=== PATIENT | female | born 1970 | race Caucasian/White ===

== ENCOUNTER → 2016-12-15 | Outpatient (REF) | payer OTHER ==
[~2016-12-15] MED LIST: ACCU5TAB7; ALLE25CA OR; ASPI325T OR; BABY81CH; EXCETAB OR; FIORICET OR; IBUP400T OR; IBUP600T OR; METO10TA2 OR; No Historical Meds; TOPI50TA OR
== END ==
LOC: M LAB REF 13:10
PROVIDERS: ATTEND Internal Medicine
DX: T76.21XA Adult sexual abuse, suspected, initial encounter (principal)

== ENCOUNTER → 2017-05-22 | Outpatient (REF) | payer OTHER | LOC: M LAB REF 12:10 | PROVIDERS: ATTEND Nurse Practitioner Family | DX: Z02.89 Encounter for other administrative examinations (principal) ==

== ENCOUNTER 2017-10-07 20:33 | Emergency (ER) | payer OTHER ==
[~2017-10-07] VITALS: Ht 157.5 cm; Wt 97.2 kg
[2017-10-07] MEDS ORDERED: fentaNYL 100 MCG/2 ML INJECTION (J3010) IV ONE (21:00)
[2017-10-07] MEDS ORDERED: PROMETHAZINE INJ 25 MG/ML VIAL (J2550) IV ONE (21:00)
[2017-10-07] MEDS ORDERED: NS 500 ML IV ONE (21:00)
--- NOTE | 2017-10-07 21:10 | REPUSA ---
CT of the head Clinical history: Headache. Comparison: 10/08/2015. Technique: Multiple axial CT images were obtained through the head without administration of contrast . Findings: The ventricles and sulci are symmetric bilaterally. Encephalomalacia of the left occipital lobe is stable. There is no evidence of acute hemorrhage or infarct. There is no midline shift, mass effect, or extra-axial fluid collection. The osseous structures are unremarkable. The visualized para nasal sinuses and mastoid air cells are clear. Impression: Negative study. No evidence of acute hemorrhage or infarct. Encephalomalacia of the left occipital lobe is unchanged.
[2017-10-07] MEDS ORDERED: VALS1TAB49 PO (21:17)
[2017-10-07] MEDS ORDERED: HYDR12.55 PO (21:17)
[2017-10-07] MEDS ORDERED: ZYRT10CA PO (21:17)
[2017-10-07] MEDS ORDERED: KETOROLAC 30 MG/ML VIAL (J1885) IV ONE (21:30)
[2017-10-07 21:42] LABS: BASO % 0.3 % (0.0-1.0); EOS # 0.1 10^3/uL (0.0-0.50); IMMATURE GRANULOCYTE % 0.3 % (0-0); LYMPH # 0.7 10^3/uL (1.5-4.5); LYMPH % 12.5 % (24.0-44.0); MEAN CORPUSCULAR HEMOGLOBIN 30.1 pg (27.0-33.0); MEAN CORPUSCULAR HGB CONC 32.3 g/dl (32.0-36.5); MEAN CORPUSCULAR VOLUME 93.2 fl (80.0-96.0); MONO # 0.4 10^3/uL (0.0-0.8); MONO % 6.4 % (0.0-5.0); NEUTROPHILS # 4.6 10^3/uL (1.8-7.7); NEUTROPHILS % 78.5 % (36.0-66.0); PLATELET COUNT, AUTOMATED 209 10^3/uL (150-450); RED CELL DISTRIBUTION WIDTH 13.6 % (11.5-14.5); WHITE BLOOD COUNT 5.9 10^3/uL (4.0-10.0)
[2017-10-07 22:06] LABS: ANION GAP 8 MEQ/L (8-16); BLOOD UREA NITROGEN 13 MG/DL (7-18); CALCIUM LEVEL 7.8 MG/DL (8.5-10.1); CARBON DIOXIDE LEVEL 26 MEQ/L (21-32); CHLORIDE LEVEL 111 MEQ/L (98-107); CREATININE FOR GFR 0.78 MG/DL (0.55-1.02); GLOMERULAR FILTRATION RATE > 60.0 (>58); GLUCOSE, FASTING 105 MG/DL (70-105); POTASSIUM SERUM 3.9 MEQ/L (3.5-5.1); SODIUM LEVEL 145 MEQ/L (136-145)
[2017-10-07] MEDS ORDERED: FIORICET TAB PO ONE (22:15)
[2017-10-07] MEDS ORDERED: FIOR1CAP PO (22:45)
[2017-10-07] MEDS ORDERED: ZOFR4TAB3 PO (22:45)
[2017-10-07 23:08] VITALS: BP 148/75
== END 2017-10-07 23:14 | disposition home or self-care (01) ==
LOC: EDBD 20:33 → M ED 20:33
DX: G43.109 Migraine with aura, not intractable, without status migrainosus (principal); Z86.73 Personal history of transient ischemic attack (TIA), and cerebral infarction without residual deficits; F17.200 Nicotine dependence, unspecified, uncomplicated; Z79.82 Long term (current) use of aspirin; Z79.899 Other long term (current) drug therapy; Z88.0 Allergy status to penicillin; Z88.1 Allergy status to other antibiotic agents; Z88.7 Allergy status to serum and vaccine; Z88.5 Allergy status to narcotic agent; Z88.8 Allergy status to other drugs, medicaments and biological substances
CPT/HCPCS: 70450; 80048; 85025; 96361; 96374; 96375; 99284; J1885; J3010

== ENCOUNTER → 2017-10-11 | Outpatient (REF) | payer OTHER ==
[~2017-10-11] MED LIST changes: +FIOR1CAP PO; +HYDR12.55 PO; +VALS1TAB49 PO; +ZOFR4TAB3 PO; +ZYRT10CA PO
[2017-10-11 18:04] LABS: CHOLESTEROL LEVEL 160 MG/DL (<200); TRIGLYCERIDES LEVEL 75 MG/DL (<150)
== END ==
LOC: M LABNEURO 13:26
PROVIDERS: ATTEND Physician Assistant Medical
DX: I63.9 Cerebral infarction, unspecified (principal)

== ENCOUNTER → 2017-12-25 | Outpatient (REF) | payer OTHER | LOC: M LABNEURO 12:11 | DX: Z86.73 Personal history of transient ischemic attack (TIA), and cerebral infarction without residual deficits (principal) ==

== ENCOUNTER → 2018-01-01 | Outpatient (REF) | payer OTHER ==
[2018-01-01 14:29] LABS: VITAMIN B12 LEVEL 680 PG/ML (247-911)
[2018-01-01 14:31] LABS: TOTAL 25(OH) VITAMIN D 6.1 NG/ML (30.0-100.0)
[2018-01-04 14:18] LABS: VITAMIN B1 LEVEL WHOLE BLOOD 120.9 nmol/L (66.5-200.0); VITAMIN E LEVEL 9.7 mg/L (5.3-16.8)
== END ==
LOC: M LABNEURO 10:50
DX: R53.83 Other fatigue (principal); Z98.84 Bariatric surgery status

== ENCOUNTER → 2018-05-04 | Outpatient (REF) | payer OTHER ==
[2018-05-04 18:59] LABS: CA 125 10.6 U/ML (<30.2)
== END ==
LOC: M LAB REF 16:46
DX: N93.9 Abnormal uterine and vaginal bleeding, unspecified (principal)

== ENCOUNTER → 2019-05-04 | Outpatient (REF) | payer OTHER ==
[~2019-05-04] MED LIST changes: +ZOFR4TAB14 PO; -ZOFR4TAB3 PO
== END ==
LOC: M LAB REF 10:48
PROVIDERS: ATTEND Physician Assistant
DX: R30.0 Dysuria (principal)

== ENCOUNTER → 2019-05-14 | Outpatient (REF) | payer OTHER ==
[2019-05-14 14:27] LABS: PERCENT SATURATION 6.2 % (13.2-45.0)
== END ==
LOC: M LAB REF 13:17
PROVIDERS: ATTEND Internal Medicine
DX: D64.9 Anemia, unspecified (principal)

== ENCOUNTER → 2019-09-13 | Outpatient (CLI) | payer OTHER ==
[2019-09-13 11:41] LABS: ALBUMIN 3.5 GM/DL (3.2-5.2); ALT/SGPT 41 U/L (12-78); BILIRUBIN,TOTAL 0.5 MG/DL (0.2-1.0); BLOOD UREA NITROGEN 11 MG/DL (7-18); CALCIUM LEVEL 8.7 MG/DL (8.5-10.1); CARBON DIOXIDE LEVEL 31 MEQ/L (21-32); CHLORIDE LEVEL 105 MEQ/L (98-107); CREATININE FOR GFR 0.68 MG/DL (0.55-1.30); GLOMERULAR FILTRATION RATE > 60.0 (>51); GLUCOSE, FASTING 109 MG/DL (70-100); MAGNESIUM LEVEL 1.7 MG/DL (1.8-2.4); NT-PRO BNP 101 PG/ML (<125); POTASSIUM SERUM 3.6 MEQ/L (3.5-5.1); SODIUM LEVEL 142 MEQ/L (136-145); TOTAL PROTEIN 7.4 GM/DL (6.4-8.2)
== END ==
LOC: M LAB 10:50
PROVIDERS: ATTEND Internal Medicine Cardiovascular Disease
DX: I50.9 Heart failure, unspecified (principal)

== ENCOUNTER 2019-11-24 08:30 | Observation (INO) | payer OTHER ==
[~2019-11-24] VITALS: Ht 157.5 cm; Wt 107.8 kg
[2019-11-24] VITALS (10 sets, daily range): BP systolic 118–160; BP diastolic 60–90
[~2019-11-24 08:30] MED LIST changes: -VALS1TAB49 PO; +VALS40TA9 PO
[2019-11-24] MEDS ORDERED: DIGO0.259 PO (08:48)
[2019-11-24] MEDS ORDERED: TOPR50TA PO (08:48)
[2019-11-24] MEDS ORDERED: ENTR1TAB7 PO (08:48)
[2019-11-24] MEDS ORDERED: SPIR-10 PO (08:48)
[2019-11-24] MEDS ORDERED: ELIQ5TAB PO (08:48)
[2019-11-24] MEDS ORDERED: SIMV10TA21 PO (08:48)
[2019-11-24] MEDS ORDERED: MONT10TA4 PO (08:48)
[2019-11-24 08:50] LABS: BASO % 0.4 % (0.0-1.0); EOS # 0.1 10^3/uL (0.0-0.5); EOS % 2.5 % (0.0-3.0); HEMOGLOBIN 10.7 g/dl (12.0-15.5); LYMPH # 0.6 10^3/uL (1.5-5.0); LYMPH % 13.1 % (24.0-44.0); MEAN CORPUSCULAR HEMOGLOBIN 30.1 pg (27.0-33.0); MEAN CORPUSCULAR HGB CONC 31.5 g/dl (32.0-36.5); MEAN CORPUSCULAR VOLUME 95.5 fl (80.0-96.0); MONO # 0.4 10^3/uL (0.0-0.8); MONO % 7.5 % (0.0-5.0); NEUTROPHILS # 3.6 10^3/uL (1.5-8.5); NEUTROPHILS % 75.7 % (36.0-66.0); PLATELET COUNT, AUTOMATED 160 10^3/uL (150-450); RED BLOOD COUNT 3.56 10^6/uL (4.00-5.40); WHITE BLOOD COUNT 4.8 10^3/uL (4.0-10.0)
--- NOTE | 2019-11-24 08:57 | REP ---
CT of the brain without IV contrast: Comparisons are 10/07/2017 and 10/08/2015. There is no hemorrhage. There is no edema, mass effect or midline shift. There is an old left occipital lobe infarct, unchanged. The cortical stripe is otherwise unremarkable. The visualized paranasal sinuses and mastoid air cells are clear. Impression: There is no hemorrhage. There is an old left occipital lobe infarct, unchanged. Otherwise, negative CT study of the brain. Electronically Signed by Phoenix Luna MD 11/24/2019 08:49 A
[2019-11-24] MEDS: ASPIRIN 81 MG ENTERIC TAB PO SCH (09:00)
[2019-11-24 09:02] LABS: INR 1.01
[2019-11-24 09:04] LABS: PARTIAL THROMBOPLASTIN TIME 27.6 SECONDS (25.0-38.4)
--- NOTE | 2019-11-24 09:06 | REP ---
Portable chest, 08:48 a.m., single AP view with the the patient semi upright: Comparison is the PA and lateral chest of 03/11/2011. There is cardiomegaly, unchanged. Lung espinoza are clear. The valentine, mediastinum, and skeletal structures are. Impression: Chronic cardiomegaly. No acute cardiopulmonary findings. Electronically Signed by Phoenix Luna MD 11/24/2019 08:56 A
[2019-11-24 09:12] LABS: CK-MB VALUE MASS < 1.0 NG/ML (<3.6); CPK CREATINE PHOSPHOKINASE 30 U/L (26-192); MB/CK RELATIVE INDEX 3.33 (< OR =4); TROPONIN I < 0.02 NG/ML (< 0.10)
[2019-11-24] MEDS ORDERED: ACETAMINOPHEN 500 MG TAB PO ONE (09:30)
--- NOTE | 2019-11-24 10:45 | REP ---
Bilateral carotid artery duplex ultrasound: Comparison is 03/11/2011. Peak flow velocity analysis: RIGHT LEFT ICA Peak flow velocity cm/sec 142.3 94.7 ICA Diastolic flow velocity cm/sec 23.1 24.0 ICA/CCA Ratio 1.03 0.62 ECA Peak flow velocity cm/sec 111.9 94.7 CCA Peak flow velocity cm/sec 138.8 153.8 The there is a mild intimal thickening at the origins of the internal carotid arteries and external carotid arteries bilaterally. No other atheromatous plaque is identified. The The peak flow velocity in the right ICA is slightly elevated. However, there is no atheromatous plaque except for minimal intimal thickening. Therefore, this peak flow velocity is likely secondary to vessel tortuosity. The peak flow velocities are otherwise normal . There is antegrade flow in the vertebral arteries bilaterally. Impression: There is no stenosis on the right on the left. No change from the prior study. Electronically Signed by Phoenix Luna MD 11/24/2019 10:37 A
[2019-11-24] MEDS ORDERED: CETI10CA2 PO (11:34)
--- NOTE | 2019-11-24 12:52 | REPVR ---
PROCEDURE INFORMATION: Exam: MR Head Without Contrast Exam date and time: 11/24/2019 10:56 AM Age: 49 years old Clinical indication: Patient HX: Dizziness, HX cvax2; Additional info: Suspected CVA TECHNIQUE: Imaging protocol: MR of the head without contrast. COMPARISON: MRI-Brain without Contrast 10/19/2015 5:19 PM FINDINGS: Brain: No acute infarct identified on the diffusion-weighted imaging. No evidence of recent parenchymal hemorrhage. There are focal, chronic bilateral cerebellar infarcts, most new since prior. An old left occipital [employer] territory infarct. The T2 weighted imaging demonstrates a few punctate foci of increased signal intensity in the deep and subcortical white matter most likely representing chronic small vessel ischemic change which has mildly progressed since the prior study. A focal, chronic right frontal infarct has developed since the prior study which demonstrates hemosiderin staining on the gradient echo imaging. Ventricles: No significant ventriculomegaly. Ex vacuo enlargement of the occipital horn of the left lateral ventricle, as before. Bones/joints: Unremarkable. Soft tissues: Unremarkable. Sinuses: Normal as visualized. No acute sinusitis. Mastoid air cells: Normal as visualized. No mastoid effusion. Orbits: Unremarkable. IMPRESSION: No evidence of acute infarct. Electronically signed by: Yvonne Lutz On 11/24/2019 12:53:43 PM
--- NOTE | 2019-11-24 12:55 | REPVR ---
PROCEDURE INFORMATION: Exam: MR Angiogram Head Without Contrast, Arteries Exam date and time: 11/24/2019 10:56 AM Age: 49 years old Clinical indication: Dizziness and giddiness; Patient HX: Dizziness, HX cvax2; Additional info: Suspected CVA TECHNIQUE: Imaging protocol: MR angiogram head without contrast. Exam focused on the arteries. 3D rendering: MIP and/or 3D reconstructed images were created by the technologist. COMPARISON: MRI-Brain without Contrast 10/19/2015 5:19 PM FINDINGS: Right internal carotid artery: Unremarkable. Intracranial segment is patent with no significant stenosis. No aneurysm. Right anterior cerebral artery: Unremarkable. No occlusion or significant stenosis. No aneurysm. Right middle cerebral artery: Unremarkable. No occlusion or significant stenosis. No aneurysm. Right posterior cerebral artery: Unremarkable. No occlusion or significant stenosis. No aneurysm. Right vertebral artery: Unremarkable. No occlusion or significant stenosis. No aneurysm. Left internal carotid artery: Unremarkable. Intracranial segment is patent with no significant stenosis. No aneurysm. Left anterior cerebral artery: Unremarkable. No occlusion or significant stenosis. No aneurysm. Left middle cerebral artery: Unremarkable. No occlusion or significant stenosis. No aneurysm. Left posterior cerebral artery: Unremarkable. No occlusion or significant stenosis. No aneurysm. Left vertebral artery: Unremarkable. No occlusion or significant stenosis. No aneurysm. Basilar artery: Unremarkable. No occlusion or significant stenosis. No aneurysm. IMPRESSION: No major proximal vessel branch occlusion seen. Electronically signed by: Yvonne Lutz On 11/24/2019 12:56:59 PM
--- NOTE | 2019-11-24 13:13 | ECGEPIP ---
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
[2019-11-24] MEDS: SPIRONOLACTONE 25 MG TAB PO SCH (14:53)
[2019-11-24] MEDS: MECLIZINE 25 MG TABLET PO PRN ×2 (14:54→23:19)
[2019-11-24] MEDS: METOPROLOL SUCC (TopROL XL) 50MG **XL** TAB PO SCH (14:54)
--- NOTE | 2019-11-24 16:06 | HPEPDOC ---
General Date of Admission Nov 24, 2019 at 12:05 Date of Service: Nov 24, 2019 Chief Complaint The patient is a 49-year-old female who presented to the emergency room after experiencing severe dizziness History of Present Illness Patient is a 49-year-old female with a PMHx of A. fib (on Eliquis), Hx of CVA (2010, 2017 - not on anti-platelet therapy, with reported residual right upper quadrant and left lower quadrant bilateral hemianopsia), Diastolic CHF? and HTN who presented to the emergency room with complaints of dizziness. Patient reported that she woke up at 7 this morning and reported she couldnt get out of bed because of dizziness that she described as the room spinning. Patient reported that she expenses of nausea but denied any vomiting. Denied any loss of consciousness, chest pain, shortness of breath or palpitations. Denies any cough. . She did report mild headache. Patient denied any difficulty with swallowing or any slurred speech. Patient denies any abdominal pain, constipation, diarrhea, urinary discomfort or experiencing fevers or chills within the last 1 week. Home Medications Scheduled Apixaban (Eliquis) 5 Mg Tablet, 5 MG PO BID, (Reported) Cetirizine HCl (ZyrTEC) 10 Mg Capsule, 10 MG PO DAILY, (Reported) Digoxin (Digox) 250 Mcg Tablet, 250 MCG PO DAILY, (Reported) Metoprolol Succinate (Toprol Xl) 50 Mg Tab.er.24h, 50 MG PO DAILY, (Reported) Montelukast Sodium (Montelukast Sodium) 10 Mg Tablet, 10 MG PO DAILY, (Reported) Sacubitril/Valsartan (Entresto 49 mg-51 mg Tablet) 1 Each Tablet, 1 TAB PO BID, (Reported) Simvastatin (Simvastatin) 10 Mg Tablet, 10 MG PO QHS, (Reported) Spironolactone (Spironolactone) 25 Mg Tablet, 25 MG PO DAILY, (Reported) Allergies Coded Allergies: Quinolones (Verified Allergy, Unknown, 11/24/19) clindamycin (Verified Allergy, Unknown, 11/24/19) codeine (Verified Allergy, Unknown, 11/24/19) erythromycin base (Verified Allergy, Unknown, 11/24/19) gentamicin (Verified Allergy, Unknown, 11/24/19) sulfamethoxazole (Verified Allergy, Unknown, 11/24/19) trimethoprim (Verified Allergy, Unknown, 11/24/19) vancomycin (Verified Allergy, Unknown, 11/24/19) Past Medical History Medical History A. fib (on Eliquis), Hx of CVA (2010, 2017 - not on anti-platelet therapy, with reported residual right upper quadrant and left lower quadrant bilateral hemianopsia), Diastolic CHF?, HTN Surgical History Cardiac catheterization 09/2019; no stent placement; reported to have an ejection fraction of 60% at the time Congenital heart defect repair; Cor triatriatum Breast reduction surgery 2 Dilation and curettage Hernia repair Gastric bypass Core biopsy of cervix Family History - Mother is alive without any eye or medical history - Father is with a history of heart attack Social History - Denies the use of illicit drugs; patient quit smoking 1 year ago but was a smoker of 5 years at less than 0.5 PPD; social alcohol use - Denies recent travel or sick contacts - Lives with boyfriend - Occupation; patient works at [employer] Review of Systems Other systems 10 point review of systems complete, all negative otherwise stated in HPI Vital Signs - Vitals: BP 134/70, HR 89, RR 16, Sat 97%RA, Temp 97.9F - General: Lying in bed, Speaking in full sentences, AAOx3 - HEENT: NC, AT, PERRLA, EOMI - CVS:+S1S2 - Lungs: Fair air entry bilaterally, No appreciable wheezing / rales / rhonchi - Abdomen: Soft, Non-distended, Non-tender - Extremities: No lower extremity edema, No calf tenderness - Neuro: No focal motor or sensory deficit - Skin: No visible rashes Laboratory Data Labs 24H Laboratory Tests 2 11/24/19 08:38: Immature Granulocyte % (Auto) 0.8, Neutrophils (%) (Auto) 75.7H, Lymphocytes (%) (Auto) 13.1L, Monocytes (%) (Auto) 7.5H, Eosinophils (%) (Auto) 2.5, Basophils (%) (Auto) 0.4, Neutrophils # (Auto) 3.6, Lymphocytes # (Auto) 0.6L, Monocytes # (Auto) 0.4, Eosinophils # (Auto) 0.1, Basophils # (Auto) 0.0, Nucleated Red Blood Cells % (auto) 0.0, Prothrombin Time 13.0, Prothromb Time International Ratio 1.01, Activated Partial Thromboplast Time 27.6, Total Creatine Kinase 30, Creatine Kinase MB < 1.0, Creatine Kinase MB Relative Index 3.33, Troponin I < 0.02 11/24/19 08:40: POC Glucose (Misc Panel) 109H, POC Sodium (Misc Panel) 139, POC Potassium (Misc Panel) 4.4, POC Chloride (Misc Panel) 103, POC Total CO2 (Misc Panel) 26.0, POC Blood Urea Nitrogen (Misc Panel 12, POC Ionized Calcium (Misc Panel) 4.6, POC Creatinine (Misc Panel) 0.7, POC Hematocrit (Misc Panel) 32.0L CBC/BMP Laboratory Tests 11/24/19 08:38 Plan / VTE VTE Prophylaxis Ordered?: Yes Plan Plan Dizziness / Vertigo - less likely 2/2 TIA, less likley 2/2 CVA, possibly 2/2 BPPV, Menieres - Presented to the emergency room with complaints of dizziness - Hemodynamically stable and afebrile - Troponin x 1 set negative - EKG without any changes compared to prior - CT Head 2/2: There is no hemorrhage. There is an old left occipital lobe infarct, unchanged. Otherwise, negative CT study of the brain. - Duplex Carotid 2/2: There is no stenosis on the right on the left. No change from the prior study. - MRI Brain 22: No evidence of acute infarct. - MRA Brain 22: No major proximal vessel branch occlusion seen. - Will check ECHO - c/w Telemetry monitoring - c/w PT and OT - Will keep on observation status A. fib - Currenlty rate controlled - c/w Metoprolol and Digoxin - c/w full anticoagulation with Eliquis Hx of CVA (2010, 2017) - Currently not on anti-platelet therapy, - Reported residual right upper quadrant and left lower quadrant bilateral hemianopsia - Will start ASA 81 Diastolic CHF? - No evidence of exacerbation currently - Will repeat ECHO - c/w Spironolactone, Entresto and Metoprolol HTN - BP well controlled - c/w Spironolactone, Entresto and Metoprolol with holding parameters - CXR 2/2: Chronic cardiomegaly. No acute cardiopulmonary findings. DVT prophylaxis - c/w full anticoagulation with MAYITO Gonsalves MD Nov 24, 2019 16:06
[2019-11-24] MEDS: ENTRESTO 49-51MG TABLET (SACUBITRIL/VALSARTAN) PO SCH (17:01)
[2019-11-24] MEDS ORDERED: ENTRESTO 49-51MG TABLET (SACUBITRIL/VALSARTAN) PO ONE (17:15)
[2019-11-24] MEDS: SIMVASTATIN 10 MG TAB PO SCH (20:03)
[2019-11-24] MEDS: APIXABAN 5 MG TAB (ELIQUIS) PO SCH (20:03)
[2019-11-24] MEDS: ACETAMINOPHEN TAB 650MG DOSE (2X325MG) PO PRN (21:13)
[2019-11-25] VITALS: BP 142/80
[2019-11-25 04:00] VITALS: BP 124/72
[2019-11-25 08:00] VITALS: BP 143/90
[2019-11-25] MEDS: DIGOXIN 0.25 MG TAB PO SCH (09:17)
[2019-11-25] MEDS: SPIRONOLACTONE 25 MG TAB PO SCH (09:17)
[2019-11-25] MEDS: ASPIRIN 81 MG ENTERIC TAB PO SCH (09:17)
[2019-11-25] MEDS: ENTRESTO 49-51MG TABLET (SACUBITRIL/VALSARTAN) PO SCH ×2 (09:17→20:27)
[2019-11-25] MEDS: APIXABAN 5 MG TAB (ELIQUIS) PO SCH ×2 (09:17→20:27)
[2019-11-25] MEDS: MONTELUKAST 10 MG TAB PO SCH (09:17)
[2019-11-25] MEDS: METOPROLOL SUCC (TopROL XL) 50MG **XL** TAB PO SCH (09:18)
[2019-11-25 12:00] VITALS: BP 117/62
--- NOTE | 2019-11-25 15:37 | IPNPDOC ---
Text Note Date of Service The patient was seen on 11/25/19. NOTE Subjective: Patient is a 49-year-old female with a PMHx of A. fib (on Eliquis), Hx of CVA (2010, 2017 - not on anti-platelet therapy, with reported residual right upper quadrant and left lower quadrant bilateral hemianopsia), Diastolic CHF? and HTN who presented to the emergency room with complaints of dizziness. Patient was admitted to the hospitalist service for evaluation of vertigo. Patient was seen and examined at the bedside. Currently, patient reports that her vertigo has improved, however, not resolved completely. She denies any chest pain, shortness of breath, palpitations. Denies nausea, vomiting, abdominal pain or diarrhea. Objective: Vitals (See below) General: Lying in bed, no acute distress, comfortable, AAOx3 HEENT: NC, AT CVS: +S1S2 Lungs: Fair air entry b/l, -w/r/r Abdomen: Soft, ND, NT Extremities: - Edema, - Calf tenderness Assessment and plan: Dizziness / Vertigo - possibly 2/2 BPPV, Menieres; unlikely 2/2 2/2 TIA / CVA - Currently, patient reports that her vertigo has improving - Hemodynamically stable and afebrile - Troponin negative; EKG without any changes compared to prior - CT Head 2/2: There is no hemorrhage. There is an old left occipital lobe infarct, unchanged. Otherwise, negative CT study of the brain. - Duplex Carotid 2/2: There is no stenosis on the right on the left. No felder ge from the prior study. - MRI Brain 2/2: No evidence of acute infarct. - MRA Brain 2/2: No major proximal vessel branch occlusion seen. - ECHO pending - c/w Telemetry monitoring - c/w PT and OT; patient will likely require 1 additional session A. fib - Currently rate controlled - c/w Metoprolol and Digoxin - c/w full anticoagulation with Eliquis Hx of CVA (2010, 2017) - Currently not on anti-platelet therapy, - Reported residual right upper quadrant and left lower quadrant bilateral hemianopsia - c/w ASA 81 Diastolic CHF? - No evidence of exacerbation currently - CXR 2/2: Chronic cardiomegaly. No acute cardiopulmonary findings. - Will repeat ECHO - c/w Spironolactone, Entresto and Metoprolol HTN - BP well controlled - c/w Spironolactone, Entresto and Metoprolol with holding parameters DVT prophylaxis - c/w full anticoagulation with Eliquis Disposition: - Anticipated discharge within the next 24 hours VS,Fishbone, I+O VS, Fishbone, I+O Vital Signs Date Time Temp Pulse Resp B/P (MAP) Pulse Ox O2 Delivery O2 Flow Rate FiO2 11/25/19 12:00 96.2 74 18 117/62 (80) 98 Room Air I&O- Last 24 Hours up to 6 AM 11/25/19 06:00 Intake Total 660 ml Output Total 250 ml Balance 410 ml MAYITO LOUIE MD Nov 25, 2019 15:37
[2019-11-25 16:00] VITALS: BP 119/57
[2019-11-25] MEDS: ACETAMINOPHEN TAB 650MG DOSE (2X325MG) PO PRN (18:05)
[2019-11-25 20:00] VITALS: BP 160/87
[2019-11-25] MEDS: SIMVASTATIN 10 MG TAB PO SCH (20:27)
[2019-11-26] VITALS: BP 133/73
[2019-11-26 04:00] VITALS: BP 129/71
[2019-11-26 08:00] VITALS: BP 122/69
[2019-11-26] MEDS ORDERED: MECL-86 PO (08:59)
[2019-11-26] MEDS: SPIRONOLACTONE 25 MG TAB PO SCH (09:33)
[2019-11-26] MEDS: DIGOXIN 0.25 MG TAB PO SCH (09:33)
[2019-11-26] MEDS: APIXABAN 5 MG TAB (ELIQUIS) PO SCH (09:33)
[2019-11-26] MEDS: ENTRESTO 49-51MG TABLET (SACUBITRIL/VALSARTAN) PO SCH (09:33)
[2019-11-26] MEDS: MONTELUKAST 10 MG TAB PO SCH (09:33)
[2019-11-26] MEDS: ASPIRIN 81 MG ENTERIC TAB PO SCH (09:33)
[2019-11-26 09:34] VITALS: BP 122/69
[2019-11-26] MEDS: METOPROLOL SUCC (TopROL XL) 50MG **XL** TAB PO SCH (09:34)
[2019-11-26 12:00] VITALS: BP 157/89
--- NOTE | 2019-11-26 15:02 | DS.PDOC ---
Discharge Summary General Date of Admission Nov 24, 2019 at 12:05 Date of Discharge 11/26/2019 Discharge Summary PROCEDURES PERFORMED DURING STAY: [None]. ADMITTING DIAGNOSES / DISCHARGE DIAGNOSES: Dizziness / Vertigo - possibly 2/2 BPPV, unlikely 2/2 Menieres; unlikely 2/2 2/2 TIA / CVA A. fib Hx of CVA (2010, 2017) Diastolic CHF? HTN DVT prophylaxis COMPLICATIONS/CHIEF COMPLAINT: Dizziness / "Room spinning" HISTORY OF PRESENT ILLNESS: Patient is a 49-year-old female with a PMHx of A. fib (on Eliquis), Hx of CVA (2010, 2017 - not on anti-platelet therapy, with reported residual right upper quadrant and left lower quadrant bilateral hemianopsia), Diastolic CHF? and HTN who presented to the emergency room with complaints of dizziness. Patient was admitted to the hospitalist service for evaluation of vertigo. HOSPITAL COURSE: Dizziness / Vertigo - possibly 2/2 BPPV, unlikely 2/2 Menieres; unlikely 2/2 2/2 TIA / CVA - Patient has reported significant improvement of her dizziness; denies any hearing loss or change in the ringing of her ears - Hemodynamically stable and afebrile - Troponin negative; EKG without any changes compared to prior - CT Head 2/2: There is no hemorrhage. There is an old left occipital lobe infarct, unchanged. Otherwise, negative CT study of the brain. - Duplex Carotid 2/2: There is no stenosis on the right on the left. No change from the prior study. - MRI Brain 2/2: No evidence of acute infarct. - MRA Brain 22: No major proximal vessel branch occlusion seen. - c/w Telemetry monitoring - c/w physical therapy and will have outpatient physical therapy follow up for vestibular therapy A. fib - Currently rate controlled - c/w Metoprolol and Digoxin - c/w full anticoagulation with Eliquis Hx of CVA (2010, 2017) - Currently not on anti-platelet therapy, - Reported residual right upper quadrant and left lower quadrant bilateral hemianopsia - c/w ASA 81 Diastolic CHF? - No evidence of exacerbation currently - CXR 2/2: Chronic cardiomegaly. No acute cardiopulmonary findings. - Will have ECHO completed as an outpatient - c/w Spironolactone, Entresto and Metoprolol HTN - BP well controlled - c/w Spironolactone, Entresto and Metoprolol with holding parameters DVT prophylaxis - c/w full anticoagulation with Eliquis DISCHARGE MEDICATIONS: Please see below. ALLERGIES: Please see below. PHYSICAL EXAMINATION ON DISCHARGE: Vitals (See below) General: Lying in bed, no acute distress, comfortable, AAOx3 HEENT: NC, AT CVS: RRR, +S1S2 Lungs: Fair air entry b/l, appreciable wheezing, rhonchi or rales Abdomen: Soft, nondistended, nontender, obese Extremities: - Edema, - Calf tenderness LABORATORY DATA: Please see below. ACTIVITY: [As tolerated]. DISCHARGE PLAN: Follow-up with Dr. Sharon Valerio within 7 days She's been advised to remain compliant with treatment plan and medications She's been advised to return to the emergency room. She experiences any problems DISPOSITION: Home with services DISCHARGE CONDITION: [Stable]. TIME SPENT ON DISCHARGE: 35 minutes Vital Signs/I&Os Vital Signs Date Time Temp Pulse Resp B/P (MAP) Pulse Ox O2 Delivery O2 Flow Rate FiO2 11/26/19 12:00 97.8 76 20 157/89 (111) 98 Room Air I&O- Last 24 Hours up to 6 AM 11/26/19 06:00 Intake Total 500 ml Output Total 0 ml Balance 500 ml Discharge Medications Scheduled Apixaban (Eliquis) 5 Mg Tablet, 5 MG PO BID, (Reported) Cetirizine HCl (ZyrTEC) 10 Mg Capsule, 10 MG PO DAILY, (Reported) Digoxin (Digox) 250 Mcg Tablet, 250 MCG PO DAILY, (Reported) Metoprolol Succinate (Toprol Xl) 50 Mg Tab.er.24h, 50 MG PO DAILY, (Reported) Montelukast Sodium (Montelukast Sodium) 10 Mg Tablet, 10 MG PO DAILY, (Reported) Sacubitril/Valsartan (Entresto 49 mg-51 mg Tablet) 1 Each Tablet, 1 TAB PO BID, (Reported) Simvastatin (Simvastatin) 10 Mg Tablet, 10 MG PO QHS, (Reported) Spironolactone (Spironolactone) 25 Mg Tablet, 25 MG PO DAILY, (Reported) Scheduled PRN Meclizine HCl (Meclizine HCl) 25 Mg Tablet, 1 TAB PO TIDP PRN for dizziness Allergies Coded Allergies: Quinolones (Verified Allergy, Unknown, 2/2/20) clindamycin (Verified Allergy, Unknown, 11/24/19) codeine (Verified Allergy, Unknown, 11/24/19) erythromycin base (Verified Allergy, Unknown, 11/24/19) gentamicin (Verified Allergy, Unknown, 11/24/19) sulfamethoxazole (Verified Allergy, Unknown, 11/24/19) trimethoprim (Verified Allergy, Unknown, 11/24/19) vancomycin (Verified Allergy, Unknown, 11/24/19) MAYITO LOUIE MD Nov 26, 2019 15:02
== END 2019-11-26 14:58 | disposition home or self-care (01) ==
LOC: M ED 08:30 → EDBD 08:30 → INTOOBSV 12:05 → M ED INP 12:05 → ENRESERV 12:20 → M PCU 12:54
PROVIDERS: ADMIT Internal Medicine; ATTEND Internal Medicine
DX: R42 Dizziness and giddiness (principal); I48.91 Unspecified atrial fibrillation; Z86.73 Personal history of transient ischemic attack (TIA), and cerebral infarction without residual deficits; I11.9 Hypertensive heart disease without heart failure; Z79.01 Long term (current) use of anticoagulants; Z79.899 Other long term (current) drug therapy; Z88.5 Allergy status to narcotic agent; Z88.1 Allergy status to other antibiotic agents; Z88.2 Allergy status to sulfonamides; Z88.8 Allergy status to other drugs, medicaments and biological substances

== ENCOUNTER → 2019-12-03 | Outpatient (REF) | payer OTHER ==
[~2019-12-03] MED LIST changes: +CETI10CA2 PO; +DIGO0.259 PO; +ELIQ5TAB PO; +ENTR1TAB7 PO; +MECL-86 PO; +MONT10TA4 PO; +SIMV10TA21 PO; +SPIR-10 PO; +TOPR50TA PO
[2019-12-03 19:00] LABS: PERCENT SATURATION 11.5 % (13.2-45.0)
== END ==
LOC: M LAB REF 17:15
PROVIDERS: ATTEND Internal Medicine
DX: D51.9 Vitamin B12 deficiency anemia, unspecified (principal)

== ENCOUNTER 2020-02-11 10:08 | Inpatient (IN) | payer OTHER ==
[~2020-02-11] VITALS: Ht 154.9 cm; Wt 108.8 kg
[2020-02-11] MEDS ORDERED: NS 1,000 ML IV ONE (10:30)
[2020-02-11 11:03] LABS: BASO % 0.5 % (0.0-1.0); EOS # 0.1 10^3/uL (0.0-0.5); EOS % 3.1 % (0.0-3.0); HEMOGLOBIN 10.8 g/dl (12.0-15.5); LYMPH # 0.6 10^3/uL (1.5-5.0); LYMPH % 14.5 % (24.0-44.0); MEAN CORPUSCULAR HEMOGLOBIN 27.8 pg (27.0-33.0); MEAN CORPUSCULAR HGB CONC 31.8 g/dl (32.0-36.5); MEAN CORPUSCULAR VOLUME 87.6 fl (80.0-96.0); MONO # 0.4 10^3/uL (0.0-0.8); MONO % 10.1 % (0.0-5.0); NEUTROPHILS # 2.8 10^3/uL (1.5-8.5); NEUTROPHILS % 71.3 % (36.0-66.0); PLATELET COUNT, AUTOMATED 152 10^3/uL (150-450); RED BLOOD COUNT 3.88 10^6/uL (4.00-5.40); WHITE BLOOD COUNT 3.9 10^3/uL (4.0-10.0)
--- NOTE | 2020-02-11 11:09 | REP ---
CT BRAIN WITHOUT CONTRAST: CT brain performed without IV contrast and compared to a prior study of 11/24/2019. There is no midline shift or mass effect. There is an area of encephalomalacia in the left occipital lobe consistent with an old infarct, unchanged. There is no acute intracranial hemorrhage. There is no extra-axial fluid collection. Bone window examination is unremarkable. IMPRESSION: Old left occipital infarct again noted. No acute intracranial findings. No acute hemorrhage, midline shift or mass effect. Electronically Signed by Phoenix Lopez MD 02/11/2020 04:57 P
[2020-02-11 11:38] LABS: ALBUMIN 3.4 GM/DL (3.2-5.2); ALT/SGPT 30 U/L (12-78); BILIRUBIN,DIRECT 0.1 MG/DL (0.0-0.2); BILIRUBIN,TOTAL 0.6 MG/DL (0.2-1.0); BLOOD UREA NITROGEN 10 MG/DL (7-18); CALCIUM LEVEL 8.6 MG/DL (8.5-10.1); CARBON DIOXIDE LEVEL 25 MEQ/L (21-32); CHLORIDE LEVEL 107 MEQ/L (98-107); CK-MB VALUE MASS < 1.0 NG/ML (<3.6); CPK CREATINE PHOSPHOKINASE 55 U/L (26-192); CREATININE FOR GFR 0.59 MG/DL (0.55-1.30); GLOMERULAR FILTRATION RATE > 60.0 (>51); GLUCOSE, FASTING 103 MG/DL (70-100); MB/CK RELATIVE INDEX 1.82 (< OR =4); POTASSIUM SERUM 3.9 MEQ/L (3.5-5.1); SODIUM LEVEL 139 MEQ/L (136-145); TROPONIN I < 0.02 NG/ML (< 0.10)
[2020-02-11 11:54] LABS: INR 1.38; PROTHROMBIN TIME 16.7 SECONDS (11.8-14.0)
[2020-02-11] MEDS ORDERED: PATIENT COMMENT (12:02)
[2020-02-11] MEDS ORDERED: LORazepam 2 MG/ML VIAL (J2060) IV ONE (13:45)
--- NOTE | 2020-02-11 14:03 | HPEPDOC ---
General Date of Admission 02/11/20 Date of Service: Feb 11, 2020 Chief Complaint The patient is a 49-year-old female admitted with a reason for visit of L Sided Weakness. Source: Patient History of Present Illness 49 year old female with PMH of Congenital heart defect repair; Cor triatriatum, A. 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 She was at her usual state of health this morning when she woke up and went to work as usual then suddenly she felt onset of numbness on the face and then the arm and leg which were feeling heavy. She was having difficulty in walking and had to grab on the surfaces to make it to the couch. In the ED CT head was normal. She refused TPA. She wasadmitted for possible acute stroke / TIA Home Medications Scheduled Apixaban (Eliquis) 5 Mg Tablet, 5 MG PO BID, (Reported) Cetirizine HCl (ZyrTEC) 10 Mg Capsule, 10 MG PO DAILY, (Reported) Digoxin (Digox) 250 Mcg Tablet, 250 MCG PO DAILY, (Reported) Metoprolol Succinate (Toprol Xl) 50 Mg Tab.er.24h, 50 MG PO DAILY, (Reported) Montelukast Sodium (Montelukast Sodium) 10 Mg Tablet, 10 MG PO QHS, (Reported) Sacubitril/Valsartan (Entresto 49 mg-51 mg Tablet) 1 Each Tablet, 1 TAB PO BID, (Reported) Miscellaneous Medications [Patient Comment] , (Reported) PATIENT STATES TAKES DIFFERENT VITAMINS, S/O BRINGING THEM IN Allergies Coded Allergies: Quinolones (Verified Allergy, Unknown, 11/24/19) clindamycin (Verified Allergy, Unknown, 11/24/19) codeine (Verified Allergy, Unknown, 11/24/19) erythromycin base (Verified Allergy, Unknown, 11/24/19) gentamicin (Verified Allergy, Unknown, 11/24/19) sulfamethoxazole (Verified Allergy, Unknown, 11/24/19) trimethoprim (Verified Allergy, Unknown, 11/24/19) vancomycin (Verified Allergy, Unknown, 11/24/19) levofloxacin (Verified Adverse Reaction, Mild, itching, 02/11/20) Past Medical History Medical History Congenital heart defect repair; Cor triatriatum, A. 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 Surgical History Cardiac catheterization 09/2019; no stent placement; reported to have an ejection fraction of 60% at the time Congenital heart defect repair; Cor triatriatum Breast reduction surgery Gastric Bypass surgery Incarcerated incisional hernia surgery Cholecystectomy 2 Dilation and curettage Core biopsy of cervix Family History Significant Family History: Heart disease (father now ) Mother is alive without any medical history Social History * Smoker: former Smoker, quit greater than 1 year Denies the use of illicit drugs; patient quit smoking 1 year ago but was a smoker of 5 years at less than 0.5 PPD; social alcohol use Denies recent travel or sick contacts A-FIB/CHADSVASC A-FIB History Current/History of A-Fib/PAF?: Yes Current PO Anticoag Therapy: Yes Review of Systems Constitutional: Denies: Chills, Fever, Night Sweats Eyes: Denies: Pain, Vision change ENT: Denies: Head Aches, Ear Pain, Dysphagia Skin: Denies: Rash, Lesions, Breakdown Pulmonary: Denies: Dyspnea, Cough Cardiovascular: Denies: Chest Pain, Palpitations, Orthopnea, Paroxysmal Noc. Dyspnea, Lt Headedness Gastrointestinal: Denies: Nausea, Vomiting, Abdominal Pain, Diarrhea Genitourinary: Denies: Dysuria, Frequency, Incontinence, Retention Hematologic: Denies: Bruising, Bleeding Excessively Neurological: Reports: Weakness, Numbness, Incoordination Psych: Reports: Anxiety Physical Examination General Exam: Positive: Alert, Cooperative, No Acute Distress Eye Exam: Positive: Conjunctiva & lids normal; Negative: Sclera icteric ENT Exam: Positive: Atraumatic, Mucous membr. moist/pink, Pharynx Normal Neck Exam: Positive: Supple; Negative: JVD, thyromegaly Chest Exam: Positive: Clear to auscultation, Normal air movement Heart Exam: Positive: Rate Normal, Regular Rhythm, Normal S1, Normal S2; Negative: Murmurs, Rubs Telemetry: Positive: No significant arrhythmia Abdomen Exam: Positive: Normal bowel sounds, Soft; Negative: Tenderness, Hepatospenomegaly Extremity Exam: Negative: Clubbing, Cyanosis, Edema Skin Exam: Positive: Nl turgor and temperature; Negative: Breakdown, Lesion Neuro Exam: Positive: Normal Speech, Normal Tone, Other (sensations diminished on the left side, facial deviation to the right, strength 4/5 on the left upper and lower ex. ) Psych Exam: Positive: Anxiety, Memory Intact, Oriented x 3 Vital Signs Vital Signs Date Time Temp Pulse Resp B/P (MAP) Pulse Ox O2 Delivery O2 Flow Rate FiO2 02/11/20 12:05 70 156/74 (101) 99 02/11/20 10:24 97.3 18 Room Air Laboratory Data Labs 24H Laboratory Tests 2 02/11/20 10:51: Immature Granulocyte % (Auto) 0.5, Neutrophils (%) (Auto) 71.3H, Lymphocytes (%) (Auto) 14.5L, Monocytes (%) (Auto) 10.1H, Eosinophils (%) (Auto) 3.1H, Basophils (%) (Auto) 0.5, Neutrophils # (Auto) 2.8, Lymphocytes # (Auto) 0.6L, Monocytes # (Auto) 0.4, Eosinophils # (Auto) 0.1, Basophils # (Auto) 0.0, Nucleated Red Blood Cells % (auto) 0.0, Anion Gap 7L, Glomerular Filtration Rate > 60.0, Calcium Level 8.6, Total Bilirubin 0.6, Direct Bilirubin 0.1, Aspartate Amino Transf (AST/SGOT) 25, Alanine Aminotransferase (ALT/SGPT) 30, Alkaline Phosphatase 65, Total Creatine Kinase 55, Creatine Kinase MB < 1.0, Creatine Kinase MB Relative Index 1.82, Troponin I < 0.02, Total Protein 7.0, Albumin 3.4, Albumin/Globulin Ratio 0.94L 02/11/20 11:33: Prothrombin Time 16.7H, Prothromb Time International Ratio 1.38 CBC/BMP Laboratory Tests 02/11/20 10:51 Assessment/Plan 49 year old female with PMH of Congenital heart defect repair; Cor triatriatum, A. 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 CT heard in the ED was negative. She Had a NIHSS score of 5 without counting the gaze and visual as she has chronic deficits there. She was offered TPA but she refused. SHe was admitted for possible Stroke/TIA. Acute ischemic stroke/TIA h/o recurrent strokes in the past. thought to be embolic in nature from the heart due to A fib. telemetry continue eliquis will add antiplatelets lipid profile. neurology consult PT/OT Paroxysmal A fib Now in sinus rhythm continue metoprolol and eliquis Diastolic CHF continue entresto will get new echo Hypertension controlled will continue home meds Morbid obesity with FLO diagnosed in 2019 h/o bypass surgery in the past untreated at present. H/o Repaired congenital heart disease. Plan / VTE VTE Prophylaxis Ordered?: Yes FARHAD RIBEIRO MD Feb 11, 2020 14:03
[2020-02-11 15:15] VITALS: BP 148/74
--- NOTE | 2020-02-11 15:33 | REP ---
MRA BRAIN: MRA brain is performed utilizing 3D [id number] imaging with MIP reconstruction images. COMPARISON: 11/24/2019 Intracranial carotid vessels are widely patent with no stenosis. Anterior communicating arteries are patent. There is a patient right posterior communicating artery. Anterior, middle, and posterior cerebral arteries are patent and symmetrical, however, there does appear to be focal mild to moderate narrowing of the T1 segment of the right posterior cerebral artery. I see no aneurysm or AVM. IMPRESSION: Mild to moderate focal narrowing of the P1 segment of the right posterior cerebral artery. No other evidence of significant intracranial arterial stenosis. Electronically Signed by Phoenix Lopez MD 02/11/2020 05:03 P
--- NOTE | 2020-02-11 15:39 | REP ---
REASON FOR EXAM: Stroke-like symptoms. Comparison examination is 11/24/2019. The cranial vertebral junction is unchanged and within normal limits. The ventricles and sulci are unchanged and again seen to be within normal limits. There is an old left posterior cerebral artery infarction. This is unchanged. There are no acute extra-axial fluid collections. There is no shift in the midline structures. Old cerebellar lacunar infarcts are noted status quo. In the right thalamic and hypothalamic regions, there are new foci of abnormal diffusion weighted hypersignal which are of corresponding near signal void on ADC mapping. This is also seen into the right cerebral peduncle. Note is again made of scattered deep white matter signal hyperintensities, particularly on the FLAIR images. The cerebellar pontine angles are again seen to be normal. The sella turcica, cavernous, and paracavernous structures are again seen to be within normal limits. The imaged paranasal sinuses and mastoid air cells remain clear. IMPRESSION: 1. Acute right thalamic and hypothalamic infarction extending into the right cerebral peduncle. 2. Old left ACIDIZER HELPER territory infarction status quo. 3. Deep white matter ischemic changes status quo. 4. Multiple tiny cerebellar lacunar infarcts status quo. 5. Other findings as described above. Electronically Signed by Lokesh Honeycutt DO 02/11/2020 04:53 P
[2020-02-11] MEDS ORDERED: ASPIRIN 325 MG TAB PO ONE (17:15)
[2020-02-11] MEDS: ACETAMINOPHEN TAB 650MG DOSE (2X325MG) PO PRN (17:29)
[2020-02-11] MEDS: ENTRESTO 49-51MG TABLET (SACUBITRIL/VALSARTAN) PO SCH (20:05)
[2020-02-11] MEDS: APIXABAN 5 MG TAB (ELIQUIS) PO SCH (20:12)
[2020-02-11] MEDS: MONTELUKAST 10 MG TAB PO SCH (20:12)
[2020-02-11] MEDS: diphenhydrAMINE 25MG CAP PO PRN (21:58)
[2020-02-11 22:00] VITALS: BP 140/69
--- NOTE | 2020-02-12 03:21 | ECGEPIP ---
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
[2020-02-12 06:00] VITALS: BP 131/70
[2020-02-12 07:07] LABS: CHOLESTEROL LEVEL 129 MG/DL (<200); CHOLESTEROL RISK RATIO 2.632 (<5); HDL CHOLESTEROL 49 MG/DL (>40); LDL CHOLESTEROL 62 MG/DL (<100); NON-HDL-C 80 MG/DL; TRIGLYCERIDES LEVEL 90 MG/DL (<150)
[2020-02-12 07:38] LABS: BLOOD UREA NITROGEN 11 MG/DL (7-18); CALCIUM LEVEL 8.5 MG/DL (8.5-10.1); CARBON DIOXIDE LEVEL 24 MEQ/L (21-32); CHLORIDE LEVEL 107 MEQ/L (98-107); CREATININE FOR GFR 0.76 MG/DL (0.55-1.30); GLOMERULAR FILTRATION RATE > 60.0 (>51); GLUCOSE, FASTING 125 MG/DL (70-100); POTASSIUM SERUM 3.6 MEQ/L (3.5-5.1); SODIUM LEVEL 139 MEQ/L (136-145)
[2020-02-12] MEDS: APIXABAN 5 MG TAB (ELIQUIS) PO SCH ×2 (08:18→20:23)
[2020-02-12] MEDS: ASPIRIN 81 MG ENTERIC TAB PO SCH (08:19)
[2020-02-12] MEDS: ATORVASTATIN 20 MG TAB PO SCH (08:19)
[2020-02-12] MEDS: ENTRESTO 49-51MG TABLET (SACUBITRIL/VALSARTAN) PO SCH ×2 (08:29→20:26)
[2020-02-12] MEDS: DIGOXIN 0.25 MG TAB PO SCH (08:29)
[2020-02-12] MEDS: METOPROLOL SUCC (TopROL XL) 50MG **XL** TAB PO SCH (08:29)
--- NOTE | 2020-02-12 09:15 | ECHO ---
DATE OF PROCEDURE: 02/11/2020 AGE: 49 GENDER: Female. HEIGHT: 61 inches WEIGHT: 249 pounds BODY SURFACE AREA: 2.07 meters squared Inpatient four pavilion room 4220 REFERRING PHYSICIAN: Dr. Maribell Powers. INDICATION: Cerebrovascular accident (CVA)/ abnormal EKG. MEASUREMENTS: 2D Measurements: RV - 3.2 cm LV - 5.4 cm Septum - 1.2 cm Posterior wall - 1.2 cm Aortic root - 3.3 cm LA - 4.8 cm LVEF - 55% Doppler Measurements: AV - 1.34 meters per second LVOT - 0.89 meters per second LVOT diameter - 1.8 cm MV - E - 96, A - 83, E/A ratio - 1.2 Early mitral deceleration time - 209 milliseconds E prime medial - 7.2 A prime medial - 7.8 E prime lateral - 8.28 Average, E/E prime ratio 12/PCWP - 16.8 mmHg PV - 1.0 meters per second Pulmonary artery acceleration time - 100 milliseconds RVSP - 37 mmHg IVC - 1.6 cm COMMENTS: Normal sinus rhythm without intraventricular conduction disturbance. Occasional isolated PVC. Somewhat challenging study in light of the patient's body habitus but diagnostically useful information was still obtained. M-mode and two-dimensional echocardiography was performed with pulsed, continuous wave, color flow and tissue Doppler studies. Mild concentric left ventricle hypertrophy with normal wall motion. Moderately dilated left atrium with grade 2 LV diastolic dysfunction and current estimated mean left atrial pressure upper limits of normal. Normal right ventricular size and motion with Doppler evidence of mild pulmonary hypertension. Mildly dilated right atrium but normal IVC size and collapse against an elevated central venous pressure at this time. Normal aortic dimensions. Marginal aortic valvular sclerosis without stenosis and very mild insufficiency. Subtle thickening of the mitral annulus but normal leaflet appearance and excursion with no posterior systolic buckling. Very mild mitral insufficiency (physiologic). Mild to moderate tricuspid insufficiency with normal appearing valvular structure. No apparent intracardiac mass. Minuscule posterior pericardial effusion. SALINE CONTRAST STUDY: Several injections were performed with good opacification of the right heart chambers and no evidence of contrast in the left ventricle despite Valsalva maneuver. Zaid Malhotra MD, [facility]
--- NOTE | 2020-02-12 09:50 | IPNPDOC ---
Subjective Date Seen The patient was seen on 02/12/20. Subjective Chief Complaint/HPI Continues to have severe numbness on maria l left side of the body and the face, left arm and leg is also weak, no difficulty in swallowing. no difficulty in speech. Objective Physical Examination General Exam: Positive: Alert, Cooperative, No Acute Distress Eye Exam: Positive: Conjunctiva & lids normal; Negative: Sclera icteric ENT Exam: Positive: Atraumatic, Mucous membr. moist/pink, Pharynx Normal Neck Exam: Positive: Supple; Negative: JVD, thyromegaly Chest Exam: Positive: Clear to auscultation, Normal air movement Heart Exam: Positive: Rate Normal, Regular Rhythm, Normal S1, Normal S2; Negative: Murmurs, Rubs Telemetry: Positive: No significant arrhythmia Abdomen Exam: Positive: Normal bowel sounds, Soft; Negative: Tenderness, Hepatospenomegaly Extremity Exam: Negative: Clubbing, Cyanosis, Edema Skin Exam: Positive: Nl turgor and temperature; Negative: Breakdown, Lesion Neuro Exam: Positive: Normal Speech, Normal Tone, Other (sensations diminished on the left side, facial deviation to the right, strength 4/5 on the left upper and lower ex. ) Psych Exam: Positive: Anxiety, Memory Intact, Oriented x 3 Assessment /Plan Assessment 49 year old female with PMH of Congenital heart defect repair; Cor triatriatum, A. 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 CT heard in the ED was negative. She Had a NIHSS score of 5 without counting the gaze and visual as she has chronic deficits there. Was 8 with the eye signs. She was offered TPA but she refused. SHe was admitted for possible Stroke/TIA. Acute ischemic stroke/TIA h/o recurrent strokes in the past. thought to be embolic in nature from the heart due to A fib. telemetry no events. continue eliquis continue ASA discussed with Neurology follow up as outpatient. PT/OT Paroxysmal A fib Now in sinus rhythm continue metoprolol and eliquis Diastolic CHF continue entresto will get new echo Hypertension controlled will allow for some permissive hypertension for 72 hours. will continue home meds with hold parameters. Morbid obesity with FLO diagnosed in 2019 h/o bypass surgery in the past untreated at present. H/o Repaired congenital heart disease. Plan/VTE VTE Prophylaxis Ordered?: Yes VS, I&O, 24H, Fishbone Vital Signs/I&O Vital Signs Date Time Temp Pulse Resp B/P (MAP) Pulse Ox O2 Delivery O2 Flow Rate FiO2 02/12/20 08:29 79 137/75 02/12/20 06:00 97.6 18 93 Room Air I&O- Last 24 Hours up to 6 AM 02/12/20 06:00 Intake Total 1355 ml Output Total 900 ml Balance 455 ml Laboratory Data 24H LABS Laboratory Tests 2 02/11/20 10:51: Immature Granulocyte % (Auto) 0.5, Neutrophils (%) (Auto) 71.3H, Lymphocytes (%) (Auto) 14.5L, Monocytes (%) (Auto) 10.1H, Eosinophils (%) (Auto) 3.1H, Basophils (%) (Auto) 0.5, Neutrophils # (Auto) 2.8, Lymphocytes # (Auto) 0.6L, Monocytes # (Auto) 0.4, Eosinophils # (Auto) 0.1, Basophils # (Auto) 0.0, Nucleated Red Blood Cells % (auto) 0.0, Anion Gap 7L, Glomerular Filtration Rate > 60.0, Calcium Level 8.6, Total Bilirubin 0.6, Direct Bilirubin 0.1, Aspartate Amino Transf (AST/SGOT) 25, Alanine Aminotransferase (ALT/SGPT) 30, Alkaline Phosphatase 65, Total Creatine Kinase 55, Creatine Kinase MB < 1.0, Creatine Kinase MB Relative Index 1.82, Troponin I < 0.02, Total Protein 7.0, Albumin 3.4, Albumin/Globulin Ratio 0.94L 02/11/20 11:33: Prothrombin Time 16.7H, Prothromb Time International Ratio 1.38 02/12/20 06:18: Anion Gap 8, Glomerular Filtration Rate > 60.0, Calcium Level 8.5, Triglycerides Level 90, Total Cholesterol 129, LDL Cholesterol 62, Non-HDL Cholesterol (LDL + VLDL) 80, Total HDL Cholesterol 49, Cholesterol/HDL Ratio 2.632 CBC/BMP Laboratory Tests 02/11/20 10:51 02/12/20 06:18 FARHAD RIBEIRO MD Feb 12, 2020 09:50
[2020-02-12 14:00] VITALS: BP 139/76
[2020-02-12] MEDS: diphenhydrAMINE 25MG CAP PO PRN ×2 (14:34→23:54)
[2020-02-12] MEDS: ACETAMINOPHEN TAB 650MG DOSE (2X325MG) PO PRN ×2 (14:34→23:54)
[2020-02-12] MEDS: MONTELUKAST 10 MG TAB PO SCH (20:23)
[2020-02-12] MEDS: GABAPENTIN 100 MG CAP PO SCH (20:23)
[2020-02-12 22:00] VITALS: BP 129/69
[2020-02-13 06:00] VITALS: BP 124/82
[2020-02-13 07:45] LABS: BASO % 0.2 % (0.0-1.0); EOS # 0.1 10^3/uL (0.0-0.5); EOS % 2.2 % (0.0-3.0); HEMATOCRIT 32.6 % (36.0-47.0); HEMOGLOBIN 10.1 g/dl (12.0-15.5); LYMPH # 0.7 10^3/uL (1.5-5.0); LYMPH % 15.9 % (24.0-44.0); MEAN CORPUSCULAR HEMOGLOBIN 27.4 pg (27.0-33.0); MEAN CORPUSCULAR VOLUME 88.6 fl (80.0-96.0); MONO # 0.5 10^3/uL (0.0-0.8); MONO % 9.9 % (0.0-5.0); NEUTROPHILS # 3.3 10^3/uL (1.5-8.5); NEUTROPHILS % 71.4 % (36.0-66.0); PLATELET COUNT, AUTOMATED 145 10^3/uL (150-450); RED BLOOD COUNT 3.68 10^6/uL (4.00-5.40); WHITE BLOOD COUNT 4.6 10^3/uL (4.0-10.0)
[2020-02-13 08:12] LABS: BLOOD UREA NITROGEN 12 MG/DL (7-18); CALCIUM LEVEL 8.6 MG/DL (8.5-10.1); CARBON DIOXIDE LEVEL 27 MEQ/L (21-32); CHLORIDE LEVEL 109 MEQ/L (98-107); CREATININE FOR GFR 0.63 MG/DL (0.55-1.30); GLOMERULAR FILTRATION RATE > 60.0 (>51); GLUCOSE, FASTING 96 MG/DL (70-100); POTASSIUM SERUM 3.9 MEQ/L (3.5-5.1); SODIUM LEVEL 141 MEQ/L (136-145)
[2020-02-13] MEDS: ENTRESTO 49-51MG TABLET (SACUBITRIL/VALSARTAN) PO SCH ×2 (09:00→21:00)
[2020-02-13] MEDS: DOCUSATE SODIUM 100 MG CAP PO SCH ×2 (09:32→21:00)
[2020-02-13] MEDS: diphenhydrAMINE 50MG/ML VIAL (J1200) IV PRN ×2 (09:32→23:19)
[2020-02-13] MEDS: ASPIRIN 81 MG ENTERIC TAB PO SCH (09:32)
[2020-02-13] MEDS: APIXABAN 5 MG TAB (ELIQUIS) PO SCH ×2 (09:32→21:18)
[2020-02-13] MEDS: GABAPENTIN 100 MG CAP PO SCH ×3 (09:33→21:18)
[2020-02-13] MEDS: ATORVASTATIN 20 MG TAB PO SCH (09:33)
[2020-02-13] MEDS: METOPROLOL SUCC (TopROL XL) 50MG **XL** TAB PO SCH (09:33)
[2020-02-13] MEDS: DIGOXIN 0.25 MG TAB PO SCH (09:33)
[2020-02-13] MEDS: ACETAMINOPHEN TAB 650MG DOSE (2X325MG) PO PRN (13:34)
[2020-02-13 14:00] VITALS: BP 120/78
--- NOTE | 2020-02-13 17:14 | IPNPDOC ---
Subjective Date Seen The patient was seen on 02/13/20. Subjective Chief Complaint/HPI complains of severe intermittent itching asking for benadryl. Says her vision is a little better and she can focus and see more. though she says her left sided weakness is worse specially in the leg. She also complains of pins and tinglingling on the left side of the body but says the gabapentin has helped. Objective Physical Examination General Exam: Positive: Alert, Cooperative, No Acute Distress Eye Exam: Positive: Conjunctiva & lids normal; Negative: Sclera icteric ENT Exam: Positive: Atraumatic, Mucous membr. moist/pink, Pharynx Normal Neck Exam: Positive: Supple; Negative: JVD, thyromegaly Chest Exam: Positive: Clear to auscultation, Normal air movement Heart Exam: Positive: Rate Normal, Regular Rhythm, Normal S1, Normal S2; Negative: Murmurs, Rubs Telemetry: Positive: No significant arrhythmia Abdomen Exam: Positive: Normal bowel sounds, Soft; Negative: Tenderness, Hepatospenomegaly Extremity Exam: Negative: Clubbing, Cyanosis, Edema Skin Exam: Positive: Nl turgor and temperature; Negative: Breakdown, Lesion Neuro Exam: Positive: Normal Speech, Normal Tone, Other (sensations diminished on the left side, facial deviation to the right, strength 3/5 on the left upper and lower ex. Babinski positive on the left.) Psych Exam: Positive: Anxiety, Memory Intact, Oriented x 3 Assessment /Plan Assessment 49 year old female with PMH of Congenital heart defect repair; Cor triatriatum, A. 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 CT heard in the ED was negative. She Had a NIHSS score of 5 without counting the gaze and visual as she has chronic deficits there. Was 8 with the eye signs. She was offered TPA but she refused. SHe was admitted for possible Stroke/TIA. MRi later in the day showed right sided acute cerebral infarction. Acute right sided ischemic stroke with left sided hemiparesis and left hemisensory loss MRI Shows: Acute right thalamic and hypothalamic infarction extending into the right cerebral peduncle. H/o recurrent strokes in the past with residual visual impairment with bilateral hemianopia. Thought to be embolic in nature from the heart due to A fib. telemetry no events. continue eliquis started ASA discussed with Neurology Dr Rachel follow up as outpatient. atorvastatin. PT/OT Will need to go to rehab Paroxysmal A fib Now in sinus rhythm continue metoprolol, digoxin and eliquis Diastolic CHF continue entresto with hold parameters to avoid too tight BP control at present. Echo: mild LVH, grade 2 diastolic dysfunction Hypertension with hypertensive heart disease controlled will allow for some permissive hypertension for 72 hours. will continue home meds with hold parameters. Morbid obesity with FLO diagnosed in 2018 h/o bypass surgery in the past untreated at present. H/o Repaired congenital heart disease. Plan/VTE VTE Prophylaxis Ordered?: Yes VS, I&O, 24H, Fishbone Vital Signs/I&O Vital Signs Date Time Temp Pulse Resp B/P (MAP) Pulse Ox O2 Delivery O2 Flow Rate FiO2 02/13/20 14:00 98.2 80 20 120/78 (92) 86 Room Air I&O- Last 24 Hours up to 6 AM 02/13/20 06:00 Intake Total 1460 ml Output Total 600 ml Balance 860 ml Laboratory Data 24H LABS Laboratory Tests 2 02/13/20 07:35: Immature Granulocyte % (Auto) 0.4, Neutrophils (%) (Auto) 71.4H, Lymphocytes (%) (Auto) 15.9L, Monocytes (%) (Auto) 9.9H, Eosinophils (%) (Auto) 2.2, Basophils (%) (Auto) 0.2, Neutrophils # (Auto) 3.3, Lymphocytes # (Auto) 0.7L, Monocytes # (Auto) 0.5, Eosinophils # (Auto) 0.1, Basophils # (Auto) 0.0, Nucleated Red Blood Cells % (auto) 0.0, Anion Gap 5L, Glomerular Filtration Rate > 60.0, Calcium Level 8.6 CBC/BMP Laboratory Tests 02/13/20 07:35 FARHAD RIBEIRO MD Feb 13, 2020 17:14
[2020-02-13] MEDS: MONTELUKAST 10 MG TAB PO SCH (21:18)
[2020-02-13 21:19] VITALS: BP 137/78
[2020-02-13 22:00] VITALS: BP 130/76
[2020-02-14 06:00] VITALS: BP 120/78
[2020-02-14] MEDS: ENTRESTO 49-51MG TABLET (SACUBITRIL/VALSARTAN) PO SCH (09:00)
[2020-02-14] MEDS: DOCUSATE SODIUM 100 MG CAP PO SCH (09:14)
[2020-02-14] MEDS: APIXABAN 5 MG TAB (ELIQUIS) PO SCH (09:14)
[2020-02-14] MEDS: GABAPENTIN 100 MG CAP PO SCH (09:14)
[2020-02-14] MEDS: ATORVASTATIN 20 MG TAB PO SCH (09:14)
[2020-02-14] MEDS: ASPIRIN 81 MG ENTERIC TAB PO SCH (09:14)
[2020-02-14 09:15] VITALS: BP 135/77
[2020-02-14] MEDS: METOPROLOL SUCC (TopROL XL) 50MG **XL** TAB PO SCH (09:15)
[2020-02-14] MEDS: DIGOXIN 0.25 MG TAB PO SCH (09:15)
[2020-02-14] MEDS ORDERED: ASPI81TAEC PO (10:09)
[2020-02-14] MEDS ORDERED: GABA-1171 PO (10:09)
[2020-02-14] MEDS ORDERED: ATOR1TAB21 PO (10:09)
--- NOTE | 2020-02-14 12:49 | DS.PDOC ---
Discharge Summary General Date of Admission Feb 11, 2020 at 13:24 Date of Discharge 02/14/20 Discharge Summary PROCEDURES PERFORMED DURING STAY: [None]. 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 SECONDARY DIAGNOSIS: Congenital heart defect repair; Cor Rosalie mancera. 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 COMPLICATIONS/CHIEF COMPLAINT: Suspected Cerebrovascular Accident. HISTORY OF PRESENT ILLNESS: See history and physical HOSPITAL COURSE: 49 year old female with PMH of Congenital heart defect repair; Cor calderon, A. 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 CT heard in the ED was negative. She Had a NIHSS score of 5 without counting the gaze and visual as she has chronic deficits there. Was 8 with the eye signs. She was offered TPA but she refused. SHe was admitted for possible Stroke/TIA. MRI later in the day showed right sided acute cerebral infarction. Acute right sided ischemic stroke with left sided hemiparesis and left hemisensory loss MRI Shows: Acute right thalamic and hypothalamic infarction extending into the right cerebral peduncle. H/o recurrent strokes in the past with residual visual impairment with bilateral hemianopia. Thought to be embolic in nature from the heart due to A fib. telemetry no events. continue eliquis started ASA discussed with Neurology Dr Rachel follow up as outpatient. atorvastatin. PT/OT Follow up with Neurology in 1 month after discharge. Paroxysmal A fib Now in sinus rhythm continue metoprolol, digoxin and eliquis Diastolic CHF continue entresto with hold parameters to avoid too tight BP control at present. Echo: mild LVH, grade 2 diastolic dysfunction Hypertension with hypertensive heart disease controlled continue home meds. Morbid obesity with FLO diagnosed in 2019 h/o bypass surgery in the past untreated at present. H/o Repaired congenital heart disease. DISCHARGE MEDICATIONS: Please see below. ALLERGIES: Please see below. PHYSICAL EXAMINATION ON DISCHARGE: VITAL SIGNS: Please see below. General Exam: Positive: Alert, Cooperative, No Acute Distress Eye Exam: Positive: Conjunctiva & lids normal; Horizontal Saccades movement seen. Bilateral hemianopia. Negative: Sclera icteric ENT Exam: Positive: Atraumatic, Mucous membr. moist/pink, Pharynx Normal Neck Exam: Positive: Supple; Negative: JVD, thyromegaly Chest Exam: Positive: Clear to auscultation, Normal air movement Heart Exam: Positive: Rate Normal, Regular Rhythm, Normal S1, Normal S2; Negative: Murmurs, Rubs Telemetry: Positive: No significant arrhythmia Abdomen Exam: Positive: Normal bowel sounds, Soft; Negative: Tenderness, Hepatosplenomegaly Extremity Exam: Negative: Clubbing, Cyanosis, Edema Skin Exam: Positive: Nl turgor and temperature; Negative: Breakdown, Lesion Neuro Exam: Positive: Normal Speech, Normal Tone, Other (sensations diminished on the left side, facial deviation to the right, strength 3/5 on the left upper and lower ex. Babinski positive on the left.) Psych Exam: Positive: Anxiety, Memory Intact, Oriented x 3 LABORATORY DATA: Please see below. ACTIVITY: [As tolerated]. DIET: as tolerated DISCHARGE PLAN: ARU DISPOSITION: . DISCHARGE INSTRUCTIONS: Follow up with Neurology in 1 month after discharge DISCHARGE CONDITION: [Stable]. TIME SPENT ON DISCHARGE: 35 minutes. Vital Signs/I&Os Vital Signs Date Time Temp Pulse Resp B/P (MAP) Pulse Ox O2 Delivery O2 Flow Rate FiO2 02/14/20 09:15 76 135/77 02/14/20 06:00 98.6 20 97 Room Air I&O- Last 24 Hours up to 6 AM 02/14/20 05:59 Intake Total 1720 ml Output Total 0 ml Balance 1720 ml Laboratory Data Labs 24H Laboratory Tests 2 02/14/20 06:12: Digoxin Level 0.6 Discharge Medications Scheduled Apixaban (Eliquis) 5 Mg Tablet, 5 MG PO BID, (Reported) Aspirin (Aspirin EC) 81 Mg Tablet.dr, 81 MG PO DAILY Atorvastatin Calcium (Atorvastatin Calcium) 20 Mg Tablet, 40 MG PO DAILY Cetirizine HCl (ZyrTEC) 10 Mg Capsule, 10 MG PO DAILY, (Reported) Digoxin (Digox) 250 Mcg Tablet, 250 MCG PO DAILY, (Reported) Gabapentin (Gabapentin) 100 Mg Capsule, 100 MG PO TID Metoprolol Succinate (Toprol Xl) 50 Mg Tab.er.24h, 50 MG PO DAILY, (Reported) Montelukast Sodium (Montelukast Sodium) 10 Mg Tablet, 10 MG PO QHS, (Reported) Sacubitril/Valsartan (Entresto 49 mg-51 mg Tablet) 1 Each Tablet, 1 TAB PO BID, (Reported) Miscellaneous Medications [Patient Comment] , (Reported) PATIENT STATES TAKES DIFFERENT VITAMINS, S/O BRINGING THEM IN Allergies Coded Allergies: Quinolones (Verified Allergy, Unknown, 11/24/19) clindamycin (Verified Allergy, Unknown, 11/24/19) codeine (Verified Allergy, Unknown, 11/24/19) erythromycin base (Verified Allergy, Unknown, 11/24/19) gentamicin (Verified Allergy, Unknown, 11/24/19) sulfamethoxazole (Verified Allergy, Unknown, 11/24/19) trimethoprim (Verified Allergy, Unknown, 11/24/19) vancomycin (Verified Allergy, Unknown, 11/24/19) levofloxacin (Verified Adverse Reaction, Mild, itching, 02/11/20) FARHAD RIBEIRO MD Feb 14, 2020 12:49
== END 2020-02-14 13:20 | DRG 65 ==
LOC: EDBD 10:08 → M ED 10:08 → M MSPAV 13:24 → ENRESERV 13:33
PROVIDERS: ADMIT Internal Medicine Nephrology; ATTEND Internal Medicine Nephrology
DX: I63.9 Cerebral infarction, unspecified (principal); I69.354 Hemiplegia and hemiparesis following cerebral infarction affecting left non-dominant side; I50.32 Chronic diastolic (congestive) heart failure; E66.2 Morbid (severe) obesity with alveolar hypoventilation; I48.91 Unspecified atrial fibrillation; Z79.01 Long term (current) use of anticoagulants; I11.0 Hypertensive heart disease with heart failure; G47.33 Obstructive sleep apnea (adult) (pediatric); H53.47 Heteronymous bilateral field defects; Z79.82 Long term (current) use of aspirin; Z79.899 Other long term (current) drug therapy; Z88.8 Allergy status to other drugs, medicaments and biological substances; Z88.5 Allergy status to narcotic agent; Z88.1 Allergy status to other antibiotic agents; Z87.891 Personal history of nicotine dependence

== ENCOUNTER 2020-02-14 10:12 | Inpatient (IN) | payer OTHER ==
[~2020-02-14] VITALS: Ht 154.9 cm; Wt 110.0 kg
[~2020-02-14 10:12] MED LIST changes: +ASPI81TAEC PO; +ATOR1TAB21 PO; +GABA-1171 PO; +PATIENT COMMENT
[2020-02-14 13:40] VITALS: BP 167/81
[2020-02-14] MEDS ORDERED: BISACODYL 10 MG SUPP PR PRN (14:15)
[2020-02-14] MEDS: PANTOPRAZOLE 40MG TAB (PROTONIX) PO SCH (16:09)
[2020-02-14] MEDS: FLUoxetine 20 MG CAP PO SCH (16:09)
[2020-02-14] MEDS: GABAPENTIN 100 MG CAP PO SCH ×2 (16:09→20:49)
--- NOTE | 2020-02-14 17:05 | HPEPDOC ---
L[facility] [employer] Note DATE OF ADMISSION: 02-14-20 DATE OF SERVICE: 02-14-20 TIME OF ADMISSION: Please refer to physician's admission order. SOURCE OF ADMISSION INFORMATION: [facility] record and patient CHIEF COMPLAINT: stroke HISTORY OF PRESENT ILLNESS: 49F pmh congenital heart defect s/p repair, afib, hx of cva with residual right sided hemianopsia 2010, chronic diastolic chf, htn, morbid obesity s/p gastric bypass, boyd presented to [facility] ED on 02-11-20 with new left sided weaknesses and found to have a new acute infarct with MRI showing, Acute right thalamic and hypothalamic infarction extending into the right cerebral peduncle Old left TONGUER territory infarctionMultiple tiny cerebellar lacunar infarct. She declined tpa, was started on aspirin and monitored on telemetry. Echo revealed grade 2 diastolic dysfunction. She reported new bilateral vision blurriness without new field cuts. She was evaluated by therapy and found to have new deficits in mobility and adls and deemed medically appropriate for admission to ARU on 02-14-2020. REVIEW OF SYSTEMS: The following is a completed review of systems and has been reviewed. Review of systems otherwise unremarkable. PAIN: Patient self reports no pain EYES: +bilateral blurred vision, chronic hemianopsia EARS, NOSE, & THROAT: No throat pain, or dysphagia, or rhinorrhea CARDIOVASCULAR: Denies chest pain or palpitations PULMONARY: Denies shortness of breath GASTROINTESTINAL: Denies constipation/diarrhea GENITOURINARY: denies dysuria MUSCULOSKELETAL: left sided weakness NEUROLOGICAL:left sided paresis with paresthesias HEMATOLOGICAL: denies easy bruising SKIN: no rash PSYCHIATRIC: Unremarkable All other review of systems found to be negative. PAST MEDICAL HISTORY: as per HPI PAST SURGICAL HISTORY: as per HPI ALLERGIES: Please see below. MEDICATIONS: Please see below. 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 GENERAL: Pleasant and cooperative. No acute distress. HEENT: PERRL. Extraocular movements intact. Clear conjunctiva. CARDIOVASCULAR: Regular rate and rhythm. No murmurs, rubs, or gallops LUNGS: Clear to auscultation bilaterally. No wheezes. No rhonchi ABDOMEN: Soft, nontender, nondistended. Positive bowel sounds. Normal active bowel sounds NEUROLOGICAL: Alert and oriented times three. Cranial nerves II through XII grossly intact. 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 5-/5 strength in left lower extremity. SKIN: blanchable erythema sacrum LABORATORY DATA: Please see below. IMAGING:Imaging documentation personally reviewed by record. FUNCTIONAL STATUS: Premorbid: Independent with all activities of daily life as well as mobility On Admission: Contact guard-total assist for mobility, total assist for dressing GOALS: Mod-I community distances with RW/cane, stairs, functional transfers, dressing, bathing, toileting, medical optimization ASSESSMENT:49-year-old F with past medical history of CVA who presents status post new stroke PLAN: 1. Rehab- PT/OT advance gait and ADL, strengthen/stretch/maintain ROM all 4 limbs, consider AFO for LLE, consider CIMT for LUE 2. Neuro- hx of stroke with residual right sided hemianopsia, now with right thalamic/hypothalamic infarct causing non-dominant paresis, mobiltiy and ADL impairments -c/u ASA, statin and good BP control for secondary stroke prevention -prozac for motor recovery 3. Cardiac: hx of cor triatrium s/p repair, Afib on Eliquis, c/u Digoxin, metoprolol- medicine consulted to assist in overall management -HTN- c/u sacubitril-valsartan home medication, on ASA -grade 2 diastolic dysfunction c/u fluid restriction, daily weight 4. resp: hx of BOYD, will start nocturnal 02 and refer to pulmonology for CPAP -Incentive spirometry, monitor for infection 5. Gi ppx: protonix 6. DVT ppx: on eliquis, teds 7. Pain: tylneol prn, gabapentin 100 TID 8. Dispo: TBD POST ADMISSION PHYSICIAN EVALUATION: Medical and functional status: Description of medical status, medical asse ssment: As above. Rehabilitation diagnosis and current and prior cold morbid medical conditions as above. Risk of complications and plans to mitigate them as above. Description of functional status current status is as above. Prior status as above. Status compared to preadmission: There are no clinically significant differences between the patient's current status and the information described on the preadmission screening document. Treatment plan anticipated: Treatment plan is as described above. Required disciplines including physical therapy, occupational therapy, others as noted above. Intensity of services: 3 hours a day, days a week. Special considerations: There are no specific special or safety considerations that would likely preclude immediate implementation of an intensive rehabilitation program or subsequently influence the plan of care. ATTESTATION: Considering all the information above, it is my best judgment that this patient requires intensive rehabilitation therapy as described above and an inpatient hospital environment due to the complexity of nursing, medical, and rehabilitation needs required by the patient. Furthermore, this patient can reasonably be expected to participate in an benefit from an inpatient rehabilitation stay with an interdisciplinary team approach to the delivery of rehabilitation care under the direction and supervision of rehabilitation physician. PROGNOSIS: Excellent ESTIMATED LENGTH OF STAY:12-14 days. PROJECTED DISCHARGE DESTINATION: Home with family support and any durable medical equipment required to increase functional safety and mobility. TIME SPENT COUNSELING AND COORDINATING INITIAL CARE: Greater than 70 minutes. Vital Signs Vital Sign - Last 24 Hours 02/14/20 13:40 Temp 99.9 Pulse 76 Resp 18 B/P (MAP) 167/81 (109) Pulse Ox 98 O2 Delivery Room Air Home Medications Scheduled Apixaban (Eliquis) 5 Mg Tablet, 5 MG PO BID, (Reported) Aspirin (Aspirin EC) 81 Mg Tablet.dr, 81 MG PO DAILY Atorvastatin Calcium (Atorvastatin Calcium) 20 Mg Tablet, 40 MG PO DAILY Cetirizine HCl (ZyrTEC) 10 Mg Capsule, 10 MG PO DAILY, (Reported) Digoxin (Digox) 250 Mcg Tablet, 250 MCG PO DAILY, (Reported) Gabapentin (Gabapentin) 100 Mg Capsule, 100 MG PO TID Metoprolol Succinate (Toprol Xl) 50 Mg Tab.er.24h, 50 MG PO DAILY, (Reported) Montelukast Sodium (Montelukast Sodium) 10 Mg Tablet, 10 MG PO QHS, (Reported) Sacubitril/Valsartan (Entresto 49 mg-51 mg Tablet) 1 Each Tablet, 1 TAB PO BID, (Reported) Allergies Coded Allergies: NUTS (Verified Allergy, Intermediate, Hives, 02/14/20) Olives (Verified Allergy, Intermediate, Hives, 02/14/20) Latex, Natural Rubber (Verified Allergy, Mild, Dermatitis, 02/14/20) Quinolones (Verified Allergy, Unknown, 11/24/19) clindamycin (Verified Allergy, Unknown, 11/24/19) codeine (Verified Allergy, Unknown, 11/24/19) erythromycin base (Verified Allergy, Unknown, 11/24/19) gentamicin (Verified Allergy, Unknown, 11/24/19) sulfamethoxazole (Verified Allergy, Unknown, 11/24/19) trimethoprim (Verified Allergy, Unknown, 11/24/19) vancomycin (Verified Allergy, Unknown, 11/24/19) levofloxacin (Verified Adverse Reaction, Mild, itching, 02/11/20) A-FIB/CHADSVASC A-FIB History Current/History of A-Fib/PAF?: Yes Current PO Anticoag Therapy: Yes JOELLEN CORODN MD Feb 14, 2020 17:05
[2020-02-14 20:00] VITALS: BP 139/65
[2020-02-14] MEDS: MONTELUKAST 10 MG TAB PO SCH (20:49)
[2020-02-14] MEDS: APIXABAN 5 MG TAB (ELIQUIS) PO SCH (20:49)
[2020-02-14] MEDS: ENTRESTO 49-51MG TABLET (SACUBITRIL/VALSARTAN) PO SCH (20:49)
[2020-02-14] MEDS: DOCUSATE SODIUM 100 MG CAP PO SCH (20:49)
[2020-02-14] MEDS: SENNA 8.6 MG TAB (SENOKOT) PO SCH (20:49)
[2020-02-15 06:00] VITALS: BP 130/72
[2020-02-15] MEDS: ASPIRIN 81 MG ENTERIC TAB PO SCH (08:19)
[2020-02-15] MEDS: PANTOPRAZOLE 40MG TAB (PROTONIX) PO SCH (08:19)
[2020-02-15 08:20] LABS: BASO % 0.2 % (0.0-1.0); EOS # 0.2 10^3/uL (0.0-0.5); EOS % 2.9 % (0.0-3.0); HEMATOCRIT 32.9 % (36.0-47.0); HEMOGLOBIN 10.2 g/dl (12.0-15.5); LYMPH # 0.7 10^3/uL (1.5-5.0); LYMPH % 12.9 % (24.0-44.0); MEAN CORPUSCULAR HEMOGLOBIN 27.6 pg (27.0-33.0); MEAN CORPUSCULAR VOLUME 89.2 fl (80.0-96.0); MONO # 0.5 10^3/uL (0.0-0.8); MONO % 9.6 % (0.0-5.0); NEUTROPHILS % 73.8 % (36.0-66.0); PLATELET COUNT, AUTOMATED 171 10^3/uL (150-450); RED BLOOD COUNT 3.69 10^6/uL (4.00-5.40); WHITE BLOOD COUNT 5.4 10^3/uL (4.0-10.0)
[2020-02-15] MEDS: ENTRESTO 49-51MG TABLET (SACUBITRIL/VALSARTAN) PO SCH ×2 (08:20→20:55)
[2020-02-15] MEDS: METOPROLOL SUCC (TopROL XL) 50MG **XL** TAB PO SCH (08:20)
[2020-02-15] MEDS: DIGOXIN 0.25 MG TAB PO SCH (08:20)
[2020-02-15] MEDS: FLUoxetine 20 MG CAP PO SCH (08:20)
[2020-02-15] MEDS: DOCUSATE SODIUM 100 MG CAP PO SCH ×2 (08:20→20:56)
[2020-02-15] MEDS: APIXABAN 5 MG TAB (ELIQUIS) PO SCH ×2 (08:20→20:55)
[2020-02-15] MEDS: GABAPENTIN 100 MG CAP PO SCH ×3 (08:20→20:54)
[2020-02-15] MEDS: ATORVASTATIN 20 MG TAB PO SCH (08:20)
[2020-02-15] MEDS: ACETAMINOPHEN TAB 650MG DOSE (2X325MG) PO PRN ×3 (08:21→20:55)
[2020-02-15 08:49] LABS: ALBUMIN 3.1 GM/DL (3.2-5.2); ALT/SGPT 28 U/L (12-78); BILIRUBIN,TOTAL 0.7 MG/DL (0.2-1.0); BLOOD UREA NITROGEN 13 MG/DL (7-18); CALCIUM LEVEL 8.4 MG/DL (8.5-10.1); CARBON DIOXIDE LEVEL 27 MEQ/L (21-32); CHLORIDE LEVEL 105 MEQ/L (98-107); CREATININE FOR GFR 0.72 MG/DL (0.55-1.30); GLOMERULAR FILTRATION RATE > 60.0 (>51); GLUCOSE, FASTING 119 MG/DL (70-100); POTASSIUM SERUM 3.8 MEQ/L (3.5-5.1); SODIUM LEVEL 138 MEQ/L (136-145); TOTAL PROTEIN 7.1 GM/DL (6.4-8.2)
--- NOTE | 2020-02-15 13:55 | CR.PDOC ---
General Date of Consultation: Feb 15, 2020 Consultation REASON FOR CONSULTATION/CHIEF COMPLAINT: Management of medical comorbidities. HISTORY OF PRESENT ILLNESS: 49 year old female with PMH of Congenital heart defect repair; Cor triatriatum, A. 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 Patient refused TPA at that time and underwent conservative medical management. A she was started on aspirin as per neurology recommendations and was monitored. Patient was deemed medically stable for discharge to acute rehabilitation for further rehabilitation. Hospitalist service consulted for help managing medical comorbidities. Patient today states that she is feeling well with no general complaints. She states that she is still weak on the left side but otherwise denies any new headaches, sensory deficits, chest pain, shortness of breath, abdominal pain, changes in vision, leg swelling, nausea, vomiting. Patient has been previously well to physical therapy program there. ALLERGIES: Please see below. HOME MEDICATIONS: Please see below. PAST MEDICAL HISTORY: Congenital heart defect repair; Cor triatriatum, A. 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 (2010, 2017 - not on anti- platelet therapy, with reported residual right upper quadrant and left lower quadrant bilateral hemianopsia), Diastolic CHF, HTN, Morbid Obesity with h/o laparoscopic gastric bypass surgery, FLO untreated PAST SURGICAL HISTORY: Cardiac catheterization 09/2019; no stent placement; reported to have an ejection fraction of 60% at the time Congenital heart defect repair; Cor triatriatum Breast reduction surgery Gastric Bypass surgery Incarcerated incisional hernia surgery Cholecystectomy 2 Dilation and curettage Core biopsy of cervix FAMILY HISTORY: Father had heart disease, mother is still alive SOCIAL HISTORY: Tobacco use: Less than 5-pack-year smoking history and quit years ago ETOH: Social Illicit drug use: Denies IV drug use: Denies REVIEW OF SYSTEMS: CONSTITUTIONAL: Denies any regional pain, weight loss, headaches. EYES: +bilateral blurred vision, chronic hemianopsia EARS, NOSE, & THROAT: No throat pain, or dysphagia, or rhinorrhea CARDIOVASCULAR: Denies chest pain or palpitations PULMONARY: Denies shortness of breath GASTROINTESTINAL: Denies constipation/diarrhea GENITOURINARY: denies dysuria MUSCULOSKELETAL: left sided weakness NEUROLOGICAL:left sided paresis with paresthesias HEMATOLOGICAL: denies easy bruising SKIN: no rash PSYCHIATRIC: Unremarkable All other review of systems found to be negative. PHYSICAL EXAMINATION: VITAL SIGNS: Please see below. GENERAL APPEARANCE: Well-appearing white female who looks stated age. Pleasant. Answers APPROPRIATELY HEENT: Normocephalic, atraumatic. Right eye appears to be more drippy than the left. Patient has mild visual field deficits noted in the right visual field compared to the left. RESPIRATORY: Lungs are clear to auscultation bilaterally with no labored breathing. CARDIOVASCULAR: Currently regular rate, regular rhythm. ABDOMEN: Soft, nontender, nondistended, obese. Positive for bowel sounds EXTREMITIES: No gross skeletal deformities noted. NEUROLOGICAL: Good strength is diminished in the left hand at approximately 4 out of 5 compared to the right. No pronator drift noted. Right leg 5 out of 5 in leg raise. Left leg 3 out of 5. Gait was not assessed. Cranial nerves II through XII appear grossly intact.. PSYCHIATRIC: Denies any homicidal or suicidal ideation. Mood seems appropriate and full affect noted LABORATORY DATA: Please see below. ASSESSMENT/PLAN: 49-year-old female with multiple medical comorbidities presents for new right- sided infarct resulting in left-sided deficits. Patient was started on aspirin therapy as and Eliquis given her paroxysmal A. fib as a likely culprit. Currently, her blood pressure remains controlled and she has had no issues on anticoagulant thus far. We'll recommend patient continue with current regimen for now and to continue her intensive physical therapy and rehabilitation as that will be most important part of her treatment plan at this time. Acute right sided ischemic stroke with left sided hemiparesis and left hemisensory loss Patient has acute right thalamic and hypothalamic infarct noted on MRI. Likely causes due to atrial fibrillation. - Continue with Eliquis - Continue with aspirin - Patient will need follow-up with neurology in one month as outpatient - Continue with high-dose statin - Continue with extensive PT/OT Paroxysmal A fib Current rhythm is sinus. - Continue with metoprolol - continue with digoxin - Continue with Eliquis Diastolic CHF, no evidence of decompensation Patient noted to be on entresto. - Continue with testosterone dose - If patient becomes fluid overloaded has has difficulty breathing, can consider giving dose of Lasix Hypertension with hypertensive heart disease controlled Currently normotensive on current medication regimen - Continue with Toprol-XL 50 mg daily - Continue just a current dose Morbid obesity with FLO diagnosed in 2019 h/o bypass surgery in the past untreated at present. - Can consider CPAP patient noted to desaturate during the night Hospitalist service to follow was needed. Thank you for this most interesting consult. Please do not hesitate to reach out if you have any questions. Vital Signs/I&O Vital Signs Date Time Temp Pulse Resp B/P (MAP) Pulse Ox O2 Delivery O2 Flow Rate FiO2 02/15/20 08:20 67 130/72 02/15/20 06:00 98.2 18 97 Room Air I&O- Last 24 Hours up to 6 AM 02/15/20 06:00 Intake Total 640 ml Balance 640 ml Laboratory Data Labs 24H Laboratory Tests 2 02/15/20 08:00: Immature Granulocyte % (Auto) 0.6, Neutrophils (%) (Auto) 73.8H, Lymphocytes (%) (Auto) 12.9L, Monocytes (%) (Auto) 9.6H, Eosinophils (%) (Auto) 2.9, Basophils (%) (Auto) 0.2, Neutrophils # (Auto) 4.0, Lymphocytes # (Auto) 0.7L, Monocytes # (Auto) 0.5, Eosinophils # (Auto) 0.2, Basophils # (Auto) 0.0, Nucleated Red Blood Cells % (auto) 0.0, Anion Gap 6L, Glomerular Filtration Rate > 60.0, Calcium Level 8.4L, Total Bilirubin 0.7, Aspartate Amino Transf (AST/SGOT) 15, Alanine Aminotransferase (ALT/SGPT) 28, Alkaline Phosphatase 64, Total Protein 7.1, Albumin 3.1L, Albumin/Globulin Ratio 0.78L CBC/BMP Laboratory Tests 02/15/20 08:00 Allergies Coded Allergies: NUTS (Verified Allergy, Intermediate, Hives, 02/14/20) Olives (Verified Allergy, Intermediate, Hives, 02/14/20) Latex, Natural Rubber (Verified Allergy, Mild, Dermatitis, 02/14/20) Quinolones (Verified Allergy, Unknown, 11/24/19) clindamycin (Verified Allergy, Unknown, 11/24/19) codeine (Verified Allergy, Unknown, 11/24/19) erythromycin base (Verified Allergy, Unknown, 11/24/19) gentamicin (Verified Allergy, Unknown, 11/24/19) sulfamethoxazole (Verified Allergy, Unknown, 11/24/19) trimethoprim (Verified Allergy, Unknown, 11/24/19) vancomycin (Verified Allergy, Unknown, 11/24/19) levofloxacin (Verified Adverse Reaction, Mild, itching, 02/11/20) Home Medications Scheduled Apixaban (Eliquis) 5 Mg Tablet, 5 MG PO BID, (Reported) Aspirin (Aspirin EC) 81 Mg Tablet.dr, 81 MG PO DAILY, #30 Atorvastatin Calcium (Atorvastatin Calcium) 20 Mg Tablet, 40 MG PO DAILY, #30 Cetirizine HCl (ZyrTEC) 10 Mg Capsule, 10 MG PO DAILY, (Reported) Digoxin (Digox) 250 Mcg Tablet, 250 MCG PO DAILY, (Reported) Gabapentin (Gabapentin) 100 Mg Capsule, 100 MG PO TID, #30 Metoprolol Succinate (Toprol Xl) 50 Mg Tab.er.24h, 50 MG PO DAILY, (Reported) Montelukast Sodium (Montelukast Sodium) 10 Mg Tablet, 10 MG PO QHS, (Reported) Sacubitril/Valsartan (Entresto 49 mg-51 mg Tablet) 1 Each Tablet, 1 TAB PO BID, (Reported) Miscellaneous Medications [Patient Comment] , (Reported) PATIENT STATES TAKES DIFFERENT VITAMINS, S/O BRINGING THEM IN CRISTOFRE MARCH MD Feb 15, 2020 13:55
[2020-02-15 14:00] VITALS: BP 142/81
[2020-02-15] MEDS: MONTELUKAST 10 MG TAB PO SCH (20:55)
[2020-02-15] MEDS: SENNA 8.6 MG TAB (SENOKOT) PO SCH (20:56)
[2020-02-15 22:00] VITALS: BP 129/75
[2020-02-16 06:00] VITALS: BP 140/78
[2020-02-16] MEDS: DOCUSATE SODIUM 100 MG CAP PO SCH ×2 (09:00→19:45)
[2020-02-16] MEDS: DIGOXIN 0.25 MG TAB PO SCH (09:05)
[2020-02-16] MEDS: ATORVASTATIN 20 MG TAB PO SCH (09:05)
[2020-02-16] MEDS: METOPROLOL SUCC (TopROL XL) 50MG **XL** TAB PO SCH (09:05)
[2020-02-16] MEDS: APIXABAN 5 MG TAB (ELIQUIS) PO SCH ×2 (09:05→20:15)
[2020-02-16] MEDS: ASPIRIN 81 MG ENTERIC TAB PO SCH (09:05)
[2020-02-16] MEDS: GABAPENTIN 100 MG CAP PO SCH ×3 (09:05→20:15)
[2020-02-16] MEDS: PANTOPRAZOLE 40MG TAB (PROTONIX) PO SCH (09:05)
[2020-02-16] MEDS: FLUoxetine 20 MG CAP PO SCH (09:05)
[2020-02-16] MEDS: ENTRESTO 49-51MG TABLET (SACUBITRIL/VALSARTAN) PO SCH ×2 (09:06→20:15)
[2020-02-16 14:00] VITALS: BP 137/63
[2020-02-16] MEDS: SENNA 8.6 MG TAB (SENOKOT) PO SCH (19:45)
[2020-02-16 20:00] VITALS: BP 135/66
[2020-02-16] MEDS: MONTELUKAST 10 MG TAB PO SCH (20:15)
[2020-02-17 06:00] VITALS: BP 139/64
[2020-02-17] MEDS: DOCUSATE SODIUM 100 MG CAP PO SCH ×2 (09:00→21:03)
[2020-02-17] MEDS: ENTRESTO 49-51MG TABLET (SACUBITRIL/VALSARTAN) PO SCH ×2 (09:00→21:03)
[2020-02-17] MEDS: METOPROLOL SUCC (TopROL XL) 50MG **XL** TAB PO SCH (09:00)
[2020-02-17] MEDS: GABAPENTIN 100 MG CAP PO SCH ×3 (09:24→21:03)
[2020-02-17] MEDS: PANTOPRAZOLE 40MG TAB (PROTONIX) PO SCH (09:24)
[2020-02-17] MEDS: ATORVASTATIN 20 MG TAB PO SCH (09:24)
[2020-02-17] MEDS: APIXABAN 5 MG TAB (ELIQUIS) PO SCH ×2 (09:24→21:03)
[2020-02-17] MEDS: ASPIRIN 81 MG ENTERIC TAB PO SCH (09:24)
[2020-02-17] MEDS: FLUoxetine 20 MG CAP PO SCH (09:24)
[2020-02-17] MEDS: ACETAMINOPHEN TAB 650MG DOSE (2X325MG) PO PRN ×2 (09:24→21:04)
[2020-02-17] MEDS: DIGOXIN 0.25 MG TAB PO SCH (09:25)
[2020-02-17 10:36] LABS: BASO % 0.4 % (0.0-1.0); EOS # 0.1 10^3/uL (0.0-0.5); HEMATOCRIT 32.1 % (36.0-47.0); HEMOGLOBIN 10.1 g/dl (12.0-15.5); LYMPH # 0.9 10^3/uL (1.5-5.0); LYMPH % 16.1 % (24.0-44.0); MEAN CORPUSCULAR HEMOGLOBIN 27.5 pg (27.0-33.0); MEAN CORPUSCULAR HGB CONC 31.5 g/dl (32.0-36.5); MEAN CORPUSCULAR VOLUME 87.5 fl (80.0-96.0); MONO # 0.7 10^3/uL (0.0-0.8); MONO % 13.1 % (0.0-5.0); NEUTROPHILS # 3.8 10^3/uL (1.5-8.5); NEUTROPHILS % 67.9 % (36.0-66.0); PLATELET COUNT, AUTOMATED 167 10^3/uL (150-450); RED BLOOD COUNT 3.67 10^6/uL (4.00-5.40); WHITE BLOOD COUNT 5.6 10^3/uL (4.0-10.0)
[2020-02-17 11:04] LABS: BLOOD UREA NITROGEN 16 MG/DL (7-18); CALCIUM LEVEL 8.5 MG/DL (8.5-10.1); CARBON DIOXIDE LEVEL 28 MEQ/L (21-32); CHLORIDE LEVEL 105 MEQ/L (98-107); CREATININE FOR GFR 0.62 MG/DL (0.55-1.30); GLOMERULAR FILTRATION RATE > 60.0 (>51); GLUCOSE, FASTING 99 MG/DL (70-100); POTASSIUM SERUM 3.8 MEQ/L (3.5-5.1); SODIUM LEVEL 139 MEQ/L (136-145)
--- NOTE | 2020-02-17 13:42 | IPNPDOC ---
PM&R Progress Note DATE OF SERVICE: Feb 17, 2020 Electrical Prospecting Engineer Progress Note Subjective: PAtient reporting she has not slept all weekend and is very upset about this. She would like to try a sleep aid. REVIEW OF SYSTEMS: The following is a completed review of systems and has been reviewed. Review of systems otherwise unremarkable. PAIN: Patient self reports no pain EYES: +bilateral blurred vision, chronic hemianopsia EARS, NOSE, & THROAT: No throat pain, or dysphagia, or rhinorrhea CARDIOVASCULAR: Denies chest pain or palpitations PULMONARY: Denies shortness of breath GASTROINTESTINAL: Denies constipation/diarrhea GENITOURINARY: denies dysuria MUSCULOSKELETAL: left sided weakness NEUROLOGICAL:left sided paresis with paresthesias HEMATOLOGICAL: denies easy bruising SKIN: no rash PSYCHIATRIC: Unremarkable All other review of systems found to be negative. PHYSICAL EXAMINATION: VITAL SIGNS: Please see below. GENERAL: Pleasant and cooperative. No acute distress. HEENT: PERRL. Extraocular movements intact. Clear conjunctiva. CARDIOVASCULAR: Regular rate and rhythm. No murmurs, rubs, or gallops LUNGS: Clear to auscultation bilaterally. No wheezes. No rhonchi ABDOMEN: Soft, nontender, nondistended. Positive bowel sounds. Normal active bowel sounds NEUROLOGICAL: Alert and oriented times three. Cranial nerves II through XII gr ossly intact. Sensation grossly diminished to light touch LUE +3 beats clonus on left and +babinksi on left EXTREMITIES: 5\5 strength right upper extremity, 3+/5 left elbow flexors/extensors, metal miner 5\5 strength right lower extremity. 5-/5 strength in left lower extremity. SKIN: blanchable erythema sacrum ASSESSMENT:49-year-old F with past medical history of CVA who presents status post new stroke PLAN: 1. 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 Cardiac: hx of cor triatrium s/p repair, Afib on Eliquis, c/u Digoxin, met oprolol- medicine consulted to assist in overall management -HTN- c/u sacubitril-valsartan home medication, on ASA -grade 2 diastolic dysfunction c/u fluid restriction, daily weight 4. resp: hx of FLO, c/u nocturnal 02 and refer to pulmonology for CPAP -Incentive spirometry, monitor for infection 5. Gi ppx: protonix 6. DVT ppx: on eliquis, teds 7. Pain: tylneol prn, gabapentin 100 TID, will increase evening dose to 300mg qHS for insomnia 8. Psych: patient reporting insomnia, will add trazodone 8. Dispo: TBD Allergies Coded Allergies: NUTS (Verified Allergy, Intermediate, Hives, 02/14/20) Olives (Verified Allergy, Intermediate, Hives, 02/14/20) Latex, Natural Rubber (Verified Allergy, Mild, Dermatitis, 02/14/20) Quinolones (Verified Allergy, Unknown, 11/24/19) clindamycin (Verified Allergy, Unknown, 11/24/19) codeine (Verified Allergy, Unknown, 11/24/19) erythromycin base (Verified Allergy, Unknown, 11/24/19) gentamicin (Verified Allergy, Unknown, 11/24/19) sulfamethoxazole (Verified Allergy, Unknown, 11/24/19) trimethoprim (Verified Allergy, Unknown, 11/24/19) vancomycin (Verified Allergy, Unknown, 11/24/19) levofloxacin (Verified Adverse Reaction, Mild, itching, 02/11/20) Vital Signs Vital Signs Date Time Temp Pulse Resp B/P (MAP) Pulse Ox O2 Delivery O2 Flow Rate FiO2 02/17/20 09:25 73 02/17/20 09:00 107/57 02/17/20 06:00 98.6 18 97 Room Air Laboratory Data CBC/BMP Laboratory Tests 02/17/20 10:21 Labs 24H Laboratory Tests 2 02/17/20 10:21: Immature Granulocyte % (Auto) 0.5, Neutrophils (%) (Auto) 67.9H, Lymphocytes (%) (Auto) 16.1L, Monocytes (%) (Auto) 13.1H, Eosinophils (%) (Auto) 2.0, Basophils (%) (Auto) 0.4, Neutrophils # (Auto) 3.8, Lymphocytes # (Auto) 0.9L, Monocytes # (Auto) 0.7, Eosinophils # (Auto) 0.1, Basophils # (Auto) 0.0, Nucleated Red Bl ood Cells % (auto) 0.0, Anion Gap 6L, Glomerular Filtration Rate > 60.0, Calcium Level 8.5 Current Medications Current Medications Current Medications Medications (Trade) Dose Ordered Sig/Edie Route PRN Reason Start Time Stop Time Status Last Admin Dose Admin Acetaminophen (Tylenol Tab) 650 mg Q4HP PRN PO fever/MILD PAIN (PS 1-4) 02/14/20 14:15 02/17/20 09:24 Apixaban (Eliquis) 5 mg BID PO 02/14/20 21:00 02/17/20 09:24 Aspirin (Ecotrin) 81 mg DAILY PO 02/15/20 09:00 02/17/20 09:24 Atorvastatin Calcium (Lipitor) 40 mg DAILY PO 02/15/20 09:00 02/17/20 09:24 Bisacodyl (Dulcolax Suppository) 10 mg DAILYPRN PRN [place] CONSTIPATION 02/14/20 14:15 Digoxin (Lanoxin) 0.25 mg DAILY PO 02/15/20 09:00 02/17/20 09:25 Docusate Sodium (Colace) 100 mg BID PO 02/14/20 21:00 Fluoxetine HCl (PROzac) 20 mg DAILY PO 02/14/20 09:00 02/17/20 09:24 Gabapentin (Neurontin) 100 mg TID PO 02/14/20 16:00 02/17/20 09:24 Home Med (Med Rec Complete!) ASDIRECTED XX 02/14/20 13:45 02/14/20 13:42 DC Metoprolol Succinate (TopROL XL) 50 mg DAILY PO 02/15/20 09:00 02/16/20 09:05 Montelukast Sodium (Singulair) 10 mg QHS PO 02/14/20 21:00 02/16/20 20:15 Pantoprazole Sodium (Protonix) 40 mg DAILY PO 02/14/20 09:00 02/17/20 09:24 Sacubitril/ Valsartan (Entresto 49-51 Mg) 1 tab BID PO 02/14/20 21:00 02/16/20 20:15 Senna (Senokot) 1 tab QHS PO 02/14/20 21:00 Trazodone HCl (Desyrel) 25 mg QHS PO 02/17/20 21:00 JOELLEN CORDON MD Feb 17, 2020 13:42
[2020-02-17 14:00] VITALS: BP 134/70
[2020-02-17 20:00] VITALS: BP 124/68
[2020-02-17] MEDS ORDERED: traZODone 25MG PER 1/2 TABLET PO SCH (21:00)
[2020-02-17] MEDS: SENNA 8.6 MG TAB (SENOKOT) PO SCH (21:03)
[2020-02-17] MEDS: traZODone 50 MG TAB PO SCH (21:03)
[2020-02-17] MEDS: MONTELUKAST 10 MG TAB PO SCH (21:03)
[2020-02-18] MEDS ORDERED: traZODone 25MG PER 1/2 TABLET PO PRN (01:00)
[2020-02-18 06:00] VITALS: BP 122/56
[2020-02-18] MEDS: PANTOPRAZOLE 40MG TAB (PROTONIX) PO SCH (08:58)
[2020-02-18] MEDS: ATORVASTATIN 20 MG TAB PO SCH (08:58)
[2020-02-18] MEDS: ENTRESTO 49-51MG TABLET (SACUBITRIL/VALSARTAN) PO SCH ×2 (08:58→20:25)
[2020-02-18] MEDS: APIXABAN 5 MG TAB (ELIQUIS) PO SCH ×2 (08:58→20:25)
[2020-02-18] MEDS: ASPIRIN 81 MG ENTERIC TAB PO SCH (08:58)
[2020-02-18] MEDS: GABAPENTIN 100 MG CAP PO SCH ×3 (08:58→20:25)
[2020-02-18] MEDS: DIGOXIN 0.25 MG TAB PO SCH (08:58)
[2020-02-18] MEDS: FLUoxetine 20 MG CAP PO SCH (08:58)
[2020-02-18] MEDS: METOPROLOL SUCC (TopROL XL) 50MG **XL** TAB PO SCH (08:59)
[2020-02-18] MEDS: DOCUSATE SODIUM 100 MG CAP PO SCH ×2 (08:59→20:25)
[2020-02-18 14:00] VITALS: BP 108/60
--- NOTE | 2020-02-18 15:02 | IPNPDOC ---
PM&R Progress Note DATE OF SERVICE: Feb 18, 2020 Aed Trainer Progress Note Subjective: PAtient reporting she slept well last night and feels refreshed. She is concerned about paying her bills and wishes to go home to get it done and then return. She wa told this was not possible, but that staff would try to assist her. REVIEW OF SYSTEMS: The following is a completed review of systems and has been reviewed. Review of systems otherwise unremarkable. PAIN: Patient self reports no pain EYES: +bilateral blurred vision, chronic hemianopsia EARS, NOSE, & THROAT: No throat pain, or dysphagia, or rhinorrhea CARDIOVASCULAR: Denies chest pain or palpitations PULMONARY: Denies shortness of breath GASTROINTESTINAL: Denies constipation/diarrhea GENITOURINARY: denies dysuria MUSCULOSKELETAL: left sided weakness NEUROLOGICAL:left sided paresis with paresthesias HEMATOLOGICAL: denies easy bruising SKIN: no rash PSYCHIATRIC: Unremarkable All other review of systems found to be negative. PHYSICAL EXAMINATION: VITAL SIGNS: Please see below. GENERAL: Pleasant and cooperative. No acute distress. HEENT: PERRL. Extraocular movements intact. Clear conjunctiva. CARDIOVASCULAR: Regular rate and rhythm. No murmurs, rubs, or gallops LUNGS: Clear to auscultation bilaterally. No wheezes. No rhonchi ABDOMEN: Soft, nontender, nondistended. Positive bowel sounds. Normal active bowel sounds NEUROLOGICAL: Alert and oriented times three. Cranial nerves II through XII grossly intact. Sensation grossly diminished to light touch LUE +3 beats clonus on left and +babinksi on left EXTREMITIES: 5\5 strength right upper extremity, 3+/5 left elbow flexors/extensors, customer experience retail clerk 5\5 strength right lower extremity. 5-/5 strength in left lower extremity. SKIN: blanchable erythema sacrum ASSESSMENT:49-year-old F with past medical history of CVA who presents status post new stroke PLAN: 1. 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 Cardiac: hx of cor triatrium s/p repair, Afib on Eliquis, c/u Digoxin, metoprolol- medicine consulted to assist in overall management -HTN- c/u sacubitril-valsartan home medication, on ASA -grade 2 diastolic dysfunction c/u fluid restriction, daily weight 4. resp: hx of FLO, c/u nocturnal 02 and refer to pulmonology for CPAP -Incentive spirometry, monitor for infection 5. Gi ppx: protonix 6. DVT ppx: on eliquis, teds 7. Pain: tylneol prn, gabapentin 100 TID 8. Psych: patient reporting insomnia, improved with trazodone 50mg qHS, c/u 8. Dispo: TBD Allergies Coded Allergies: NUTS (Verified Allergy, Intermediate, Hives, 02/14/20) Olives (Verified Allergy, Intermediate, Hives, 02/14/20) Latex, Natural Rubber (Verified Allergy, Mild, Dermatitis, 02/14/20) Quinolones (Verified Allergy, Unknown, 11/24/19) clindamycin (Verified Allergy, Unknown, 11/24/19) codeine (Verified Allergy, Unknown, 11/24/19) erythromycin base (Verified Allergy, Unknown, 11/24/19) gentamicin (Verified Allergy, Unknown, 11/24/19) sulfamethoxazole (Verified Allergy, Unknown, 11/24/19) trimethoprim (Verified Allergy, Unknown, 11/24/19) vancomycin (Verified Allergy, Unknown, 11/24/19) levofloxacin (Verified Adverse Reaction, Mild, itching, 02/11/20) Vital Signs Vital Signs Date Time Temp Pulse Resp B/P (MAP) Pulse Ox O2 Delivery O2 Flow Rate FiO2 02/18/20 08:59 81 123/73 02/18/20 06:00 96.8 17 97 Room Air Current Medications Current Medications Current Medications Medications (Trade) Dose Ordered Sig/Edie Route PRN Reason Start Time Stop Time Status Last Admin Dose Admin Acetaminophen (Tylenol Tab) 650 mg Q4HP PRN PO fever/MILD PAIN (PS 1-4) 02/14/20 14:15 02/17/20 21:04 Apixaban (Eliquis) 5 mg BID PO 02/14/20 21:00 02/18/20 08:58 Aspirin (Ecotrin) 81 mg DAILY PO 02/15/20 09:00 02/18/20 08:58 Atorvastatin Calcium (Lipitor) 40 mg DAILY PO 02/15/20 09:00 02/18/20 08:58 Bisacodyl (Dulcolax Suppository) 10 mg DAILYPRN PRN [place] CONSTIPATION 02/14/20 14:15 Digoxin (Lanoxin) 0.25 mg DAILY PO 02/15/20 09:00 02/18/20 08:58 Docusate Sodium (Colace) 100 mg BID PO 02/14/20 21:00 02/17/20 21:03 Fluoxetine HCl (PROzac) 20 mg DAILY PO 02/14/20 09:00 02/18/20 08:58 Gabapentin (Neurontin) 100 mg TID PO 02/14/20 16:00 02/18/20 08:58 Home Med (Med Rec Complete!) ASDIRECTED XX 02/14/20 13:45 02/14/20 13:42 DC Metoprolol Succinate (TopROL XL) 50 mg DAILY PO 02/15/20 09:00 02/18/20 08:59 Montelukast Sodium (Singulair) 10 mg QHS PO 02/14/20 21:00 02/17/20 21:03 Pantoprazole Sodium (Protonix) 40 mg DAILY PO 02/14/20 09:00 02/18/20 08:58 Sacubitril/ Valsartan (Entresto 49-51 Mg) 1 tab BID PO 02/14/20 21:00 02/18/20 08:58 Senna (Senokot) 1 tab QHS PO 02/14/20 21:00 02/17/20 21:03 Trazodone HCl (Desyrel) 25 mg ASDIRECTED PRN PO insomnia 02/18/20 01:00 02/18/20 04:00 DC Trazodone HCl (Desyrel) 25 mg QHS PO 02/17/20 21:00 02/17/20 13:35 DC Trazodone HCl (Desyrel) 50 mg QHS PO 02/17/20 21:00 02/17/20 21:03 JOELLEN CORDON MD Feb 18, 2020 15:02
[2020-02-18 20:00] VITALS: BP 134/58
[2020-02-18] MEDS: SENNA 8.6 MG TAB (SENOKOT) PO SCH (20:25)
[2020-02-18] MEDS: MONTELUKAST 10 MG TAB PO SCH (20:25)
[2020-02-18] MEDS: traZODone 50 MG TAB PO SCH (20:25)
[2020-02-19 05:15] VITALS: BP 134/63
[2020-02-19 06:35] LABS: BASO % 0.4 % (0.0-1.0); EOS # 0.1 10^3/uL (0.0-0.5); EOS % 2.2 % (0.0-3.0); HEMATOCRIT 32.2 % (36.0-47.0); HEMOGLOBIN 10.3 g/dl (12.0-15.5); LYMPH # 0.8 10^3/uL (1.5-5.0); LYMPH % 15.7 % (24.0-44.0); MEAN CORPUSCULAR HEMOGLOBIN 28.4 pg (27.0-33.0); MEAN CORPUSCULAR VOLUME 88.7 fl (80.0-96.0); MONO # 0.5 10^3/uL (0.0-0.8); NEUTROPHILS # 3.5 10^3/uL (1.5-8.5); NEUTROPHILS % 71.3 % (36.0-66.0); PLATELET COUNT, AUTOMATED 179 10^3/uL (150-450); RED BLOOD COUNT 3.63 10^6/uL (4.00-5.40); WHITE BLOOD COUNT 4.9 10^3/uL (4.0-10.0)
[2020-02-19 06:58] LABS: BLOOD UREA NITROGEN 16 MG/DL (7-18); CALCIUM LEVEL 8.8 MG/DL (8.5-10.1); CARBON DIOXIDE LEVEL 28 MEQ/L (21-32); CHLORIDE LEVEL 107 MEQ/L (98-107); CREATININE FOR GFR 0.62 MG/DL (0.55-1.30); GLOMERULAR FILTRATION RATE > 60.0 (>51); GLUCOSE, FASTING 92 MG/DL (70-100); POTASSIUM SERUM 3.8 MEQ/L (3.5-5.1); SODIUM LEVEL 139 MEQ/L (136-145)
[2020-02-19] MEDS: FLUoxetine 20 MG CAP PO SCH (08:28)
[2020-02-19] MEDS: DIGOXIN 0.25 MG TAB PO SCH (08:28)
[2020-02-19] MEDS: PANTOPRAZOLE 40MG TAB (PROTONIX) PO SCH (08:28)
[2020-02-19] MEDS: ASPIRIN 81 MG ENTERIC TAB PO SCH (08:28)
[2020-02-19] MEDS: GABAPENTIN 100 MG CAP PO SCH ×3 (08:28→21:16)
[2020-02-19] MEDS: DOCUSATE SODIUM 100 MG CAP PO SCH ×2 (08:28→21:00)
[2020-02-19] MEDS: ATORVASTATIN 20 MG TAB PO SCH (08:28)
[2020-02-19] MEDS: APIXABAN 5 MG TAB (ELIQUIS) PO SCH ×2 (08:29→21:16)
[2020-02-19] MEDS: ENTRESTO 49-51MG TABLET (SACUBITRIL/VALSARTAN) PO SCH ×2 (08:29→21:16)
[2020-02-19] MEDS: METOPROLOL SUCC (TopROL XL) 50MG **XL** TAB PO SCH (08:29)
--- NOTE | 2020-02-19 12:01 | IPNPDOC ---
PM&R Progress Note DATE OF SERVICE: Feb 19, 2020 Extension Worker Progress Note Subjective: PAtient reporting she is tired today, but did sleep well. She believes she is getting stronger. REVIEW OF SYSTEMS: The following is a completed review of systems and has been reviewed. Review of systems otherwise unremarkable. PAIN: Patient self reports no pain EYES: +bilateral blurred vision, chronic hemianopsia EARS, NOSE, & THROAT: No throat pain, or dysphagia, or rhinorrhea CARDIOVASCULAR: Denies chest pain or palpitations PULMONARY: Denies shortness of breath GASTROINTESTINAL: Denies constipation/diarrhea GENITOURINARY: denies dysuria MUSCULOSKELETAL: left sided weakness NEUROLOGICAL:left sided paresis with paresthesias HEMATOLOGICAL: denies easy bruising SKIN: no rash PSYCHIATRIC: Unremarkable All other review of systems found to be negative. PHYSICAL EXAMINATION: VITAL SIGNS: Please see below. GENERAL: Pleasant and cooperative. No acute distress. HEENT: PERRL. Extraocular movements intact. Clear conjunctiva. CARDIOVASCULAR: Regular rate and rhythm. No murmurs, rubs, or gallops LUNGS: Clear to auscultation bilaterally. No wheezes. No rhonchi ABDOMEN: Soft, nontender, nondistended. Positive bowel sounds. Normal active bowel sounds NEUROLOGICAL: Alert and oriented times three. Cranial nerves II through XII grossly intact. Sensation grossly diminished to light touch LUE +3 beats clonus on left and +babinksi on left EXTREMITIES: 5\5 strength right upper extremity, 3+/5 left elbow flexors/extensors, cell installer 5\5 strength right lower extremity. 5-/5 strength in left lower extremity. SKIN: blanchable erythema sacrum ASSESSMENT:49-year-old F with past medical history of CVA who presents status post new stroke PLAN: 1. Rehab- PT/OT advance gait and ADL, strengthen/stretch/maintain ROM all 4 limbs, consider AFO for LLE, consider CIMT for LUE SOAPSTONER- for swallow eval, safe on thins and regular solids 2. 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 Cardiac: hx of cor triatrium s/p repair, Afib on Eliquis, c/u Digoxin, metoprolol- medicine consulted to assist in overall management -HTN- c/u sacubitril-valsartan home medication, on ASA -grade 2 diastolic dysfunction c/u fluid restriction, daily weight 4. resp: hx of FLO, c/u nocturnal 02 and refer to pulmonology for CPAP -Incentive spirometry, monitor for infection 5. Gi ppx: protonix 6. DVT ppx: on eliquis, teds 7. Pain: Tylenol prn, gabapentin 100 TID 8. Psych: patient reporting insomnia, improved with trazodone 50mg qHS, c/u 8. Dispo: 03-04-20 to home, progressing towards goals Allergies Coded Allergies: NUTS (Verified Allergy, Intermediate, Hives, 02/14/20) Olives (Verified Allergy, Intermediate, Hives, 02/14/20) Latex, Natural Rubber (Verified Allergy, Mild, Dermatitis, 02/14/20) Quinolones (Verified Allergy, Unknown, 11/24/19) clindamycin (Verified Allergy, Unknown, 11/24/19) codeine (Verified Allergy, Unknown, 11/24/19) erythromycin base (Verified Allergy, Unknown, 11/24/19) gentamicin (Verified Allergy, Unknown, 11/24/19) sulfamethoxazole (Verified Allergy, Unknown, 11/24/19) trimethoprim (Verified Allergy, Unknown, 11/24/19) vancomycin (Verified Allergy, Unknown, 11/24/19) levofloxacin (Verified Adverse Reaction, Mild, itching, 02/11/20) Vital Signs Vital Signs Date Time Temp Pulse Resp B/P (MAP) Pulse Ox O2 Delivery O2 Flow Rate FiO2 02/19/20 08:29 68 134/63 02/19/20 05:15 97.2 18 96 Room Air Laboratory Data CBC/BMP Laboratory Tests 02/19/20 06:20 Labs 24H Laboratory Tests 2 02/19/20 06:20: Immature Granulocyte % (Auto) 0.4, Neutrophils (%) (Auto) 71.3H, Lymphocytes (%) (Auto) 15.7L, Monocytes (%) (Auto) 10.0H, Eosinophils (%) (Auto) 2.2, Basophils (%) (Auto) 0.4, Neutrophils # (Auto) 3.5, Lymphocytes # (Auto) 0.8L, Monocytes # (Auto) 0.5, Eosinophils # (Auto) 0.1, Basophils # (Auto) 0.0, Nucleated Red Blood Cells % (auto) 0.0, Anion Gap 4L, Glomerular Filtration Rate > 60.0, Calcium Level 8.8 Current Medications Current Medications Current Medications Medications (Trade) Dose Ordered Sig/Edie Route PRN Reason Start Time Stop Time Status Last Admin Dose Admin Acetaminophen (Tylenol Tab) 650 mg Q4HP PRN PO fever/MILD PAIN (PS 1-4) 02/14/20 14:15 02/17/20 21:04 Apixaban (Eliquis) 5 mg BID PO 02/14/20 21:00 02/19/20 08:29 Aspirin (Ecotrin) 81 mg DAILY PO 02/15/20 09:00 02/19/20 08:28 Atorvastatin Calcium (Lipitor) 40 mg DAILY PO 02/15/20 09:00 02/19/20 08:28 Bisacodyl (Dulcolax Suppository) 10 mg DAILYPRN PRN [place] CONSTIPATION 02/14/20 14:15 Digoxin (Lanoxin) 0.25 mg DAILY PO 02/15/20 09:00 02/19/20 08:28 Docusate Sodium (Colace) 100 mg BID PO 02/14/20 21:00 02/19/20 08:28 Fluoxetine HCl (PROzac) 20 mg DAILY PO 02/14/20 09:00 02/19/20 08:28 Gabapentin (Neurontin) 100 mg TID PO 02/14/20 16:00 02/19/20 08:28 Home Med (Med Rec Complete!) ASDIRECTED XX 02/14/20 13:45 02/14/20 13:42 DC Metoprolol Succinate (TopROL XL) 50 mg DAILY PO 02/15/20 09:00 02/19/20 08:29 Montelukast Sodium (Singulair) 10 mg QHS PO 02/14/20 21:00 02/18/20 20:25 Pantoprazole Sodium (Protonix) 40 mg DAILY PO 02/14/20 09:00 02/19/20 08:28 Sacubitril/ Valsartan (Entresto 49-51 Mg) 1 tab BID PO 02/14/20 21:00 02/19/20 08:29 Senna (Senokot) 1 tab QHS PO 02/14/20 21:00 02/18/20 20:25 Trazodone HCl (Desyrel) 25 mg ASDIRECTED PRN PO insomnia 02/18/20 01:00 02/18/20 04:00 DC Trazodone HCl (Desyrel) 25 mg QHS PO 02/17/20 21:00 02/17/20 13:35 DC Trazodone HCl (Desyrel) 50 mg QHS PO 02/17/20 21:00 02/18/20 20:25 JOELLEN CORDON MD Feb 19, 2020 12:01
[2020-02-19 14:00] VITALS: BP 126/70
[2020-02-19 20:00] VITALS: BP 134/64
[2020-02-19] MEDS: SENNA 8.6 MG TAB (SENOKOT) PO SCH (21:00)
[2020-02-19] MEDS: traZODone 50 MG TAB PO SCH (21:16)
[2020-02-19] MEDS: MONTELUKAST 10 MG TAB PO SCH (21:16)
[2020-02-20 06:00] VITALS: BP 124/65
[2020-02-20] MEDS: ASPIRIN 81 MG ENTERIC TAB PO SCH (08:23)
[2020-02-20] MEDS: PANTOPRAZOLE 40MG TAB (PROTONIX) PO SCH (08:23)
[2020-02-20] MEDS: GABAPENTIN 100 MG CAP PO SCH ×3 (08:23→21:08)
[2020-02-20] MEDS: FLUoxetine 20 MG CAP PO SCH (08:23)
[2020-02-20] MEDS: ATORVASTATIN 20 MG TAB PO SCH (08:23)
[2020-02-20] MEDS: APIXABAN 5 MG TAB (ELIQUIS) PO SCH ×2 (08:23→21:08)
[2020-02-20] MEDS: DOCUSATE SODIUM 100 MG CAP PO SCH ×3 (08:23→20:52)
[2020-02-20] MEDS: ENTRESTO 49-51MG TABLET (SACUBITRIL/VALSARTAN) PO SCH ×2 (08:24→21:08)
[2020-02-20] MEDS: DIGOXIN 0.25 MG TAB PO SCH (08:24)
[2020-02-20] MEDS: METOPROLOL SUCC (TopROL XL) 50MG **XL** TAB PO SCH (08:25)
[2020-02-20] MEDS: ACETAMINOPHEN TAB 650MG DOSE (2X325MG) PO PRN (12:41)
[2020-02-20 14:00] VITALS: BP 123/65
[2020-02-20] MEDS: FIORICET TAB PO PRN (16:13)
[2020-02-20 20:00] VITALS: BP 112/60
[2020-02-20] MEDS: SENNA 8.6 MG TAB (SENOKOT) PO SCH (20:53)
[2020-02-20] MEDS: MONTELUKAST 10 MG TAB PO SCH (21:08)
[2020-02-20] MEDS: traZODone 50 MG TAB PO SCH (21:08)
[2020-02-21 06:00] VITALS: BP 115/63
[2020-02-21 08:05] LABS: BASO % 0.4 % (0.0-1.0); EOS # 0.1 10^3/uL (0.0-0.5); EOS % 2.1 % (0.0-3.0); HEMATOCRIT 32.3 % (36.0-47.0); LYMPH # 0.8 10^3/uL (1.5-5.0); LYMPH % 15.4 % (24.0-44.0); MEAN CORPUSCULAR HEMOGLOBIN 27.7 pg (27.0-33.0); MEAN CORPUSCULAR VOLUME 89.5 fl (80.0-96.0); MONO # 0.5 10^3/uL (0.0-0.8); MONO % 9.6 % (0.0-5.0); NEUTROPHILS # 3.7 10^3/uL (1.5-8.5); NEUTROPHILS % 71.9 % (36.0-66.0); PLATELET COUNT, AUTOMATED 205 10^3/uL (150-450); RED BLOOD COUNT 3.61 10^6/uL (4.00-5.40); WHITE BLOOD COUNT 5.2 10^3/uL (4.0-10.0)
[2020-02-21 08:28] LABS: BLOOD UREA NITROGEN 17 MG/DL (7-18); CALCIUM LEVEL 8.5 MG/DL (8.5-10.1); CARBON DIOXIDE LEVEL 26 MEQ/L (21-32); CHLORIDE LEVEL 107 MEQ/L (98-107); CREATININE FOR GFR 0.62 MG/DL (0.55-1.30); GLOMERULAR FILTRATION RATE > 60.0 (>51); GLUCOSE, FASTING 109 MG/DL (70-100); POTASSIUM SERUM 3.6 MEQ/L (3.5-5.1); SODIUM LEVEL 140 MEQ/L (136-145)
[2020-02-21] MEDS: FLUoxetine 20 MG CAP PO SCH (08:30)
[2020-02-21] MEDS: APIXABAN 5 MG TAB (ELIQUIS) PO SCH ×2 (08:30→21:51)
[2020-02-21] MEDS: ENTRESTO 49-51MG TABLET (SACUBITRIL/VALSARTAN) PO SCH ×2 (08:31→21:51)
[2020-02-21] MEDS: GABAPENTIN 100 MG CAP PO SCH ×3 (08:31→21:51)
[2020-02-21] MEDS: ASPIRIN 81 MG ENTERIC TAB PO SCH (08:31)
[2020-02-21] MEDS: ATORVASTATIN 20 MG TAB PO SCH (08:31)
[2020-02-21] MEDS: DIGOXIN 0.25 MG TAB PO SCH (08:31)
[2020-02-21] MEDS: PANTOPRAZOLE 40MG TAB (PROTONIX) PO SCH (08:31)
[2020-02-21] MEDS: DOCUSATE SODIUM 100 MG CAP PO SCH ×2 (08:32→21:51)
[2020-02-21] MEDS: METOPROLOL SUCC (TopROL XL) 50MG **XL** TAB PO SCH (08:32)
[2020-02-21 14:00] VITALS: BP 121/70
--- NOTE | 2020-02-21 14:28 | IPNPDOC ---
PM&R Progress Note DATE OF SERVICE: February 21, 2020 Training And Development Specialist Progress Note Subjective: Patient reporting she is worried about intermittent memory loss and confusion, but does not feel it is interfering with therapy. She denies any new weakness. She reports her left arm and leg feel colder than the right. REVIEW OF SYSTEMS: The following is a completed review of systems and has been reviewed. Review of systems otherwise unremarkable. PAIN: Patient self reports +headache EYES: +bilateral blurred vision, chronic hemianopsia EARS, NOSE, & THROAT: No throat pain, or dysphagia, or rhinorrhea CARDIOVASCULAR: Denies chest pain or palpitations PULMONARY: Denies shortness of breath GASTROINTESTINAL: Denies constipation/diarrhea GENITOURINARY: denies dysuria MUSCULOSKELETAL: left sided weakness NEUROLOGICAL:left sided paresis with paresthesias HEMATOLOGICAL: denies easy bruising SKIN: no rash PSYCHIATRIC: Unremarkable All other review of systems found to be negative. PHYSICAL EXAMINATION: VITAL SIGNS: Please see below. GENERAL: Pleasant and cooperative. No acute distress. HEENT: PERRL. Extraocular movements intact. Clear conjunctiva. CARDIOVASCULAR: Regular rate and rhythm. No murmurs, rubs, or gallops LUNGS: Clear to auscultation bilaterally. No wheezes. No rhonchi ABDOMEN: Soft, nontender, nondistended. Positive bowel sounds. Normal active bowel sounds NEUROLOGICAL: Alert and oriented times three. Cranial nerves II through XII grossly intact. Sensation grossly diminished to light touch LUE +3 beats clonus on left and +babinksi on left EXTREMITIES: 5\5 strength right upper extremity, 3+/5 left elbow flexors/extensors, courtesy car driver 5\5 strength right lower extremity. 5-/5 strength in left lower extremity. bilat extremities Upper/lower without notable temperature difference bilat pedal pusles intact, skin warm and well perfused throughout SKIN: blanchable erythema sacrum ASSESSMENT:49-year-old F with past medical history of CVA who presents status post new stroke PLAN: 1. Rehab- PT/OT advance gait and ADL, strengthen/stretch/maintain ROM all 4 limbs, consider AFO for LLE, consider CIMT for LUE FLEXIBLE BABYSITTER- for swallow eval, safe on thins and regular solids, cog eval schedule for monday 2. 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 Cardiac: hx of cor triatrium s/p repair, Afib on Eliquis, c/u Digoxin, metoprolol- medicine consulted to assist in overall management -HTN- c/u sacubitril-valsartan home medication, on ASA -grade 2 diastolic dysfunction c/u fluid restriction, daily weight 4. resp: hx of FLO, c/u nocturnal 02 and refer to pulmonology for CPAP -Incentive spirometry, monitor for infection 5. Gi ppx: protonix 6. DVT ppx: on eliquis, teds 7. Pain: Tylenol prn, gabapentin 100 TID -c/u Fiorcet prn as patient report this is helping 8. Psych: patient reporting insomnia, improved with trazodone 50mg qHS, c/u 8. Dispo: 03-04-20 to home, progressing towards goals Allergies Coded Allergies: NUTS (Verified Allergy, Intermediate, Hives, 02/14/20) Olives (Verified Allergy, Intermediate, Hives, 02/14/20) Latex, Natural Rubber (Verified Allergy, Mild, Dermatitis, 02/14/20) Quinolones (Verified Allergy, Unknown, 11/24/19) clindamycin (Verified Allergy, Unknown, 11/24/19) codeine (Verified Allergy, Unknown, 11/24/19) erythromycin base (Verified Allergy, Unknown, 11/24/19) gentamicin (Verified Allergy, Unknown, 11/24/19) sulfamethoxazole (Verified Allergy, Unknown, 11/24/19) trimethoprim (Verified Allergy, Unknown, 11/24/19) vancomycin (Verified Allergy, Unknown, 11/24/19) levofloxacin (Verified Adverse Reaction, Mild, itching, 02/11/20) Vital Signs Vital Signs Date Time Temp Pulse Resp B/P (MAP) Pulse Ox O2 Delivery O2 Flow Rate FiO2 02/21/20 14:00 97.2 71 12 121/70 (87) 100 Room Air Laboratory Data CBC/BMP Laboratory Tests 02/21/20 07:18 Labs 24H Laboratory Tests 2 02/21/20 07:18: Immature Granulocyte % (Auto) 0.6, Neutrophils (%) (Auto) 71.9H, Lymphocytes (%) (Auto) 15.4L, Monocytes (%) (Auto) 9.6H, Eosinophils (%) (Auto) 2.1, Basophils (%) (Auto) 0.4, Neutrophils # (Auto) 3.7, Lymphocytes # (Auto) 0.8L, Monocytes # (Auto) 0.5, Eosinophils # (Auto) 0.1, Basophils # (Auto) 0.0, Nucleated Red Bl ood Cells % (auto) 0.0, Anion Gap 7L, Glomerular Filtration Rate > 60.0, Calcium Level 8.5 Current Medications Current Medications Current Medications Medications (Trade) Dose Ordered Sig/Edie Route PRN Reason Start Time Stop Time Status Last Admin Dose Admin Acetaminophen (Tylenol Tab) 650 mg Q4HP PRN PO fever/MILD PAIN (PS 1-4) 02/14/20 14:15 02/20/20 12:41 Acetaminophen/ Butalbital/ Caffeine (Fioricet) 1 ea Q4HP PRN PO HEADACHE 02/20/20 15:30 02/20/20 16:13 Apixaban (Eliquis) 5 mg BID PO 02/14/20 21:00 02/21/20 08:30 Aspirin (Ecotrin) 81 mg DAILY PO 02/15/20 09:00 02/21/20 08:31 Atorvastatin Calcium (Lipitor) 40 mg DAILY PO 02/15/20 09:00 02/21/20 08:31 Bisacodyl (Dulcolax Suppository) 10 mg DAILYPRN PRN [place] CONSTIPATION 02/14/20 14:15 Digoxin (Lanoxin) 0.25 mg DAILY PO 02/15/20 09:00 02/21/20 08:31 Docusate Sodium (Colace) 100 mg BID PO 02/14/20 21:00 02/19/20 08:28 Fluoxetine HCl (PROzac) 20 mg DAILY PO 02/14/20 09:00 02/21/20 08:30 Gabapentin (Neurontin) 100 mg TID PO 02/14/20 16:00 02/21/20 08:31 Home Med (Med Rec Complete!) ASDIRECTED XX 02/14/20 13:45 02/14/20 13:42 DC Metoprolol Succinate (TopROL XL) 50 mg DAILY PO 02/15/20 09:00 02/21/20 08:32 Montelukast Sodium (Singulair) 10 mg QHS PO 02/14/20 21:00 02/20/20 21:08 Pantoprazole Sodium (Protonix) 40 mg DAILY PO 02/14/20 09:00 02/21/20 08:31 Sacubitril/ Valsartan (Entresto 49-51 Mg) 1 tab BID PO 02/14/20 21:00 02/21/20 08:31 Senna (Senokot) 1 tab QHS PO 02/14/20 21:00 02/18/20 20:25 Trazodone HCl (Desyrel) 25 mg ASDIRECTED PRN PO insomnia 02/18/20 01:00 02/18/20 04:00 DC Trazodone HCl (Desyrel) 25 mg QHS PO 02/17/20 21:00 02/17/20 13:35 DC Trazodone HCl (Desyrel) 50 mg QHS PO 02/17/20 21:00 02/20/20 21:08 JOELLEN CORDON MD February 21, 2020 14:28
--- NOTE | 2020-02-21 14:28 | IPNPDOC ---
PM&R Progress Note DATE OF SERVICE: Feb 20, 2020 Tube Trailer Filler Progress Note Subjective: Patient seen in the gym stating she has a headache today that is not relived with tylenol. She says at home she takes Excedrin or butalbital to help with her headaches. REVIEW OF SYSTEMS: The following is a completed review of systems and has been reviewed. Review of systems otherwise unremarkable. PAIN: Patient self reports +headache EYES: +bilateral blurred vision, chronic hemianopsia EARS, NOSE, & THROAT: No throat pain, or dysphagia, or rhinorrhea CARDIOVASCULAR: Denies chest pain or palpitations PULMONARY: Denies shortness of breath GASTROINTESTINAL: Denies constipation/diarrhea GENITOURINARY: denies dysuria MUSCULOSKELETAL: left sided weakness NEUROLOGICAL:left sided paresis with paresthesias HEMATOLOGICAL: denies easy bruising SKIN: no rash PSYCHIATRIC: Unremarkable All other review of systems found to be negative. PHYSICAL EXAMINATION: VITAL SIGNS: Please see below. GENERAL: Pleasant and cooperative. No acute distress. HEENT: PERRL. Extraocular movements intact. Clear conjunctiva. CARDIOVASCULAR: Regular rate and rhythm. No murmurs, rubs, or gallops LUNGS: Clear to auscultation bilaterally. No wheezes. No rhonchi ABDOMEN: Soft, nontender, nondistended. Positive bowel sounds. Normal active bowel sounds NEUROLOGICAL: Alert and oriented times three. Cranial nerves II through XII grossly intact. Sensation grossly diminished to light touch LUE +3 beats clonus on left and +babinksi on left EXTREMITIES: 5\5 strength right upper extremity, 3+/5 left elbow flexors/extensors, gaming worker 5\5 strength right lower extremity. 5-/5 strength in left lower extremity. SKIN: blanchable erythema sacrum ASSESSMENT:49-year-old F with past medical history of CVA who presents status post new stroke PLAN: 1. Rehab- PT/OT advance gait and ADL, strengthen/stretch/maintain ROM all 4 limbs, consider AFO for LLE, consider CIMT for LUE IT SECURITY SPECIALIST- for swallow eval, safe on thins and regular solids 2. 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 Cardiac: hx of cor triatrium s/p repair, Afib on Eliquis, c/u Digoxin, metoprolol- medicine consulted to assist in overall management -HTN- c/u sacubitril-valsartan home medication, on ASA -grade 2 diastolic dysfunction c/u fluid restriction, daily weight 4. resp: hx of FLO, c/u nocturnal 02 and refer to pulmonology for CPAP -Incentive spirometry, monitor for infection 5. Gi ppx: protonix 6. DVT ppx: on eliquis, teds 7. Pain: Tylenol prn, gabapentin 100 TID -will startFiorcet prn as patient reports at home she takes butalbital at home that helps with her headaches 8. Psych: patient reporting insomnia, improved with trazodone 50mg qHS, c/u 8. Dispo: 03-04-20 to home, progressing towards goals Allergies Coded Allergies: NUTS (Verified Allergy, Intermediate, Hives, 02/14/20) Olives (Verified Allergy, Intermediate, Hives, 02/14/20) Latex, Natural Rubber (Verified Allergy, Mild, Dermatitis, 02/14/20) Quinolones (Verified Allergy, Unknown, 11/24/19) clindamycin (Verified Allergy, Unknown, 11/24/19) codeine (Verified Allergy, Unknown, 11/24/19) erythromycin base (Verified Allergy, Unknown, 11/24/19) gentamicin (Verified Allergy, Unknown, 11/24/19) sulfamethoxazole (Verified Allergy, Unknown, 11/24/19) trimethoprim (Verified Allergy, Unknown, 11/24/19) vancomycin (Verified Allergy, Unknown, 11/24/19) levofloxacin (Verified Adverse Reaction, Mild, itching, 02/11/20) Vital Signs Vital Signs Date Time Temp Pulse Resp B/P (MAP) Pulse Ox O2 Delivery O2 Flow Rate FiO2 02/21/20 14:00 97.2 71 12 121/70 (87) 100 Room Air Laboratory Data CBC/BMP Laboratory Tests 02/21/20 07:18 Labs 24H Laboratory Tests 2 02/21/20 07:18: Immature Granulocyte % (Auto) 0.6, Neutrophils (%) (Auto) 71.9H, Lymphocytes (%) (Auto) 15.4L, Monocytes (%) (Auto) 9.6H, Eosinophils (%) (Auto) 2.1, Basophils (%) (Auto) 0.4, Neutrophils # (Auto) 3.7, Lymphocytes # (Auto) 0.8L, Monocytes # (Auto) 0.5, Eosinophils # (Auto) 0.1, Basophils # (Auto) 0.0, Nucleated Red Blood Cells % (auto) 0.0, Anion Gap 7L, Glomerular Filtration Rate > 60.0, Calcium Level 8.5 Current Medications Current Medications Current Medications Medications (Trade) Dose Ordered Sig/Edie Route PRN Reason Start Time Stop Time Status Last Admin Dose Admin Acetaminophen (Tylenol Tab) 650 mg Q4HP PRN PO fever/MILD PAIN (PS 1-4) 02/14/20 14:15 02/20/20 12:41 Acetaminophen/ Butalbital/ Caffeine (Fioricet) 1 ea Q4HP PRN PO HEADACHE 02/20/20 15:30 02/20/20 16:13 Apixaban (Eliquis) 5 mg BID PO 02/14/20 21:00 02/21/20 08:30 Aspirin (Ecotrin) 81 mg DAILY PO 02/15/20 09:00 02/21/20 08:31 Atorvastatin Calcium (Lipitor) 40 mg DAILY PO 02/15/20 09:00 02/21/20 08:31 Bisacodyl (Dulcolax Suppository) 10 mg DAILYPRN PRN [place] CONSTIPATION 02/14/20 14:15 Digoxin (Lanoxin) 0.25 mg DAILY PO 02/15/20 09:00 02/21/20 08:31 Docusate Sodium (Colace) 100 mg BID PO 02/14/20 21:00 02/19/20 08:28 Fluoxetine HCl (PROzac) 20 mg DAILY PO 02/14/20 09:00 02/21/20 08:30 Gabapentin (Neurontin) 100 mg TID PO 02/14/20 16:00 02/21/20 08:31 Home Med (Med Rec Complete!) ASDIRECTED XX 02/14/20 13:45 02/14/20 13:42 DC Metoprolol Succinate (TopROL XL) 50 mg DAILY PO 02/15/20 09:00 02/21/20 08:32 Montelukast Sodium (Singulair) 10 mg QHS PO 02/14/20 21:00 02/20/20 21:08 Pantoprazole Sodium (Protonix) 40 mg DAILY PO 02/14/20 09:00 02/21/20 08:31 Sacubitril/ Valsartan (Entresto 49-51 Mg) 1 tab BID PO 02/14/20 21:00 02/21/20 08:31 Senna (Senokot) 1 tab QHS PO 02/14/20 21:00 02/18/20 20:25 Trazodone HCl (Desyrel) 25 mg ASDIRECTED PRN PO insomnia 02/18/20 01:00 02/18/20 04:00 DC Trazodone HCl (Desyrel) 25 mg QHS PO 02/17/20 21:00 02/17/20 13:35 DC Trazodone HCl (Desyrel) 50 mg QHS PO 02/17/20 21:00 02/20/20 21:08 JOELLEN CORDON MD February 21, 2020 14:28
[2020-02-21 19:35] VITALS: BP 132/88
[2020-02-21 20:00] VITALS: BP 131/63
[2020-02-21] MEDS: MONTELUKAST 10 MG TAB PO SCH (21:51)
[2020-02-21] MEDS: traZODone 50 MG TAB PO SCH (21:51)
[2020-02-21] MEDS: SENNA 8.6 MG TAB (SENOKOT) PO SCH (21:51)
[2020-02-22 04:00] VITALS: BP 137/68
[2020-02-22] MEDS: ASPIRIN 81 MG ENTERIC TAB PO SCH (09:44)
[2020-02-22] MEDS: APIXABAN 5 MG TAB (ELIQUIS) PO SCH ×2 (09:44→20:39)
[2020-02-22] MEDS: ENTRESTO 49-51MG TABLET (SACUBITRIL/VALSARTAN) PO SCH ×2 (09:44→20:39)
[2020-02-22] MEDS: DOCUSATE SODIUM 100 MG CAP PO SCH ×2 (09:44→20:40)
[2020-02-22] MEDS: DIGOXIN 0.25 MG TAB PO SCH (09:45)
[2020-02-22] MEDS: FLUoxetine 20 MG CAP PO SCH (09:46)
[2020-02-22] MEDS: PANTOPRAZOLE 40MG TAB (PROTONIX) PO SCH (09:46)
[2020-02-22] MEDS: METOPROLOL SUCC (TopROL XL) 50MG **XL** TAB PO SCH (09:46)
[2020-02-22] MEDS: GABAPENTIN 100 MG CAP PO SCH ×3 (09:46→20:39)
[2020-02-22] MEDS: ATORVASTATIN 20 MG TAB PO SCH (09:47)
[2020-02-22] MEDS: FIORICET TAB PO PRN (11:59)
[2020-02-22 14:00] VITALS: BP_SYST 109; BP_SYST 143; BP_DIAS 72; BP_DIAS 81
[2020-02-22] MEDS: MONTELUKAST 10 MG TAB PO SCH (20:39)
[2020-02-22] MEDS: traZODone 50 MG TAB PO SCH (20:39)
[2020-02-22] MEDS: SENNA 8.6 MG TAB (SENOKOT) PO SCH (20:40)
[2020-02-22 20:45] VITALS: BP 115/60
[2020-02-23 06:55] VITALS: BP 117/54
[2020-02-23] MEDS: DOCUSATE SODIUM 100 MG CAP PO SCH ×2 (09:00→21:00)
[2020-02-23] MEDS: ENTRESTO 49-51MG TABLET (SACUBITRIL/VALSARTAN) PO SCH ×2 (10:15→21:20)
[2020-02-23] MEDS: APIXABAN 5 MG TAB (ELIQUIS) PO SCH ×2 (10:15→21:20)
[2020-02-23] MEDS: ATORVASTATIN 20 MG TAB PO SCH (10:16)
[2020-02-23] MEDS: DIGOXIN 0.25 MG TAB PO SCH (10:16)
[2020-02-23] MEDS: GABAPENTIN 100 MG CAP PO SCH ×3 (10:16→21:20)
[2020-02-23] MEDS: PANTOPRAZOLE 40MG TAB (PROTONIX) PO SCH (10:16)
[2020-02-23] MEDS: METOPROLOL SUCC (TopROL XL) 50MG **XL** TAB PO SCH (10:17)
[2020-02-23] MEDS: FLUoxetine 20 MG CAP PO SCH (10:17)
[2020-02-23] MEDS: ASPIRIN 81 MG ENTERIC TAB PO SCH (10:18)
[2020-02-23 14:00] VITALS: BP 113/63
[2020-02-23] MEDS: SENNA 8.6 MG TAB (SENOKOT) PO SCH (21:00)
[2020-02-23] MEDS: MONTELUKAST 10 MG TAB PO SCH (21:20)
[2020-02-23] MEDS: traZODone 50 MG TAB PO SCH (21:20)
[2020-02-23 21:22] VITALS: BP 141/63
[2020-02-24 06:00] VITALS: BP 132/68
[2020-02-24 06:44] LABS: BASO % 0.4 % (0.0-1.0); EOS # 0.1 10^3/uL (0.0-0.5); EOS % 2.4 % (0.0-3.0); HEMATOCRIT 32.3 % (36.0-47.0); HEMOGLOBIN 10.1 g/dl (12.0-15.5); LYMPH # 0.8 10^3/uL (1.5-5.0); LYMPH % 16.4 % (24.0-44.0); MEAN CORPUSCULAR HEMOGLOBIN 27.9 pg (27.0-33.0); MEAN CORPUSCULAR HGB CONC 31.3 g/dl (32.0-36.5); MEAN CORPUSCULAR VOLUME 89.2 fl (80.0-96.0); MONO # 0.4 10^3/uL (0.0-0.8); MONO % 8.8 % (0.0-5.0); NEUTROPHILS # 3.6 10^3/uL (1.5-8.5); NEUTROPHILS % 71.8 % (36.0-66.0); PLATELET COUNT, AUTOMATED 226 10^3/uL (150-450); RED BLOOD COUNT 3.62 10^6/uL (4.00-5.40)
[2020-02-24 07:07] LABS: BLOOD UREA NITROGEN 18 MG/DL (7-18); CALCIUM LEVEL 8.6 MG/DL (8.5-10.1); CARBON DIOXIDE LEVEL 28 MEQ/L (21-32); CHLORIDE LEVEL 106 MEQ/L (98-107); CREATININE FOR GFR 0.66 MG/DL (0.55-1.30); GLOMERULAR FILTRATION RATE > 60.0 (>51); GLUCOSE, FASTING 118 MG/DL (70-100); POTASSIUM SERUM 4.2 MEQ/L (3.5-5.1); SODIUM LEVEL 141 MEQ/L (136-145)
[2020-02-24] MEDS: PANTOPRAZOLE 40MG TAB (PROTONIX) PO SCH (08:42)
[2020-02-24] MEDS: FLUoxetine 20 MG CAP PO SCH (08:43)
[2020-02-24] MEDS: ATORVASTATIN 20 MG TAB PO SCH (08:43)
[2020-02-24] MEDS: ASPIRIN 81 MG ENTERIC TAB PO SCH (08:43)
[2020-02-24] MEDS: APIXABAN 5 MG TAB (ELIQUIS) PO SCH ×2 (08:43→21:09)
[2020-02-24] MEDS: ENTRESTO 49-51MG TABLET (SACUBITRIL/VALSARTAN) PO SCH ×2 (08:43→21:08)
[2020-02-24] MEDS: DIGOXIN 0.25 MG TAB PO SCH (08:43)
[2020-02-24] MEDS: METOPROLOL SUCC (TopROL XL) 50MG **XL** TAB PO SCH (08:43)
[2020-02-24] MEDS: DOCUSATE SODIUM 100 MG CAP PO SCH ×2 (08:43→21:00)
[2020-02-24] MEDS: GABAPENTIN 100 MG CAP PO SCH ×3 (08:43→21:08)
[2020-02-24] MEDS ORDERED: MECLIZINE 25 MG TABLET PO PRN (13:00)
[2020-02-24 14:00] VITALS: BP 125/69
--- NOTE | 2020-02-24 16:54 | IPNPDOC ---
PM&R Progress Note DATE OF SERVICE: February 24, 2020 Chief Safety Officer Progress Note Subjective: Patient reporting she had a good weekend, her headaches are better and she is is walking better with her AFO. REVIEW OF SYSTEMS: The following is a completed review of systems and has been reviewed. Review of systems otherwise unremarkable. PAIN: Patient self reports +headache EYES: +bilateral blurred vision, chronic hemianopsia EARS, NOSE, & THROAT: No throat pain, or dysphagia, or rhinorrhea CARDIOVASCULAR: Denies chest pain or palpitations PULMONARY: Denies shortness of breath GASTROINTESTINAL: Denies constipation/diarrhea GENITOURINARY: denies dysuria MUSCULOSKELETAL: left sided weakness NEUROLOGICAL:left sided paresis with paresthesias HEMATOLOGICAL: denies easy bruising SKIN: no rash PSYCHIATRIC: Unremarkable All other review of systems found to be negative. PHYSICAL EXAMINATION: VITAL SIGNS: Please see below. GENERAL: Pleasant and cooperative. No acute distress. HEENT: PERRL. Extraocular movements intact. Clear conjunctiva. CARDIOVASCULAR: Regular rate and rhythm. No murmurs, rubs, or gallops LUNGS: Clear to auscultation bilaterally. No wheezes. No rhonchi ABDOMEN: Soft, nontender, nondistended. Positive bowel sounds. Normal active bowel sounds NEUROLOGICAL: Alert and oriented times three. Cranial nerves II through XII bobby sly intact. Sensation grossly diminished to light touch LUE +3 beats clonus on left and +babinksi on left EXTREMITIES: 5\5 strength right upper extremity, 3+/5 left elbow flexors/extensors, bag hanger 5\5 strength right lower extremity. 5-/5 strength in left lower extremity. bilat extremities Upper/lower without notable temperature difference bilat pedal pusles intact, skin warm and well perfused throughout SKIN: blanchable erythema sacrum ASSESSMENT:49-year-old F with past medical history of CVA who presents status post new stroke PLAN: 1. Rehab- PT/OT advance gait and ADL, strengthen/stretch/maintain ROM all 4 limbs, consider AFO for LLE, consider CIMT for LUE SENIOR MATERIALS ANALYST- for swallow eval, safe on thins and regular solids, cog eval schedule for today 2. 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 Cardiac: hx of cor triatrium s/p repair, Afib on Eliquis, c/u Digoxin, metoprolol- medicine consulted to assist in overall management -HTN- c/u sacubitril-valsartan home medication, on ASA -grade 2 diastolic dysfunction c/u fluid restriction, daily weight 4. resp: hx of FLO, c/u nocturnal 02 and refer to pulmonology for CPAP -Incentive spirometry, monitor for infection 5. Gi ppx: protonix 6. DVT ppx: on eliquis, teds 7. Pain: Tylenol prn, gabapentin 100 TID -c/u Fiorcet prn as patient report this is helping 8. Psych: patient reporting insomnia, improved with trazodone 50mg qHS, c/u 8. Dispo: 03-04-20 to home, progressing towards goals Allergies Coded Allergies: NUTS (Verified Allergy, Intermediate, Hives, 02/14/20) Olives (Verified Allergy, Intermediate, Hives, 02/14/20) Latex, Natural Rubber (Verified Allergy, Mild, Dermatitis, 02/14/20) Quinolones (Verified Allergy, Unknown, 11/24/19) clindamycin (Verified Allergy, Unknown, 11/24/19) codeine (Verified Allergy, Unknown, 11/24/19) erythromycin base (Verified Allergy, Unknown, 11/24/19) gentamicin (Verified Allergy, Unknown, 11/24/19) sulfamethoxazole (Verified Allergy, Unknown, 11/24/19) trimethoprim (Verified Allergy, Unknown, 11/24/19) vancomycin (Verified Allergy, Unknown, 11/24/19) levofloxacin (Verified Adverse Reaction, Mild, itching, 02/11/20) Vital Signs Vital Signs Date Time Temp Pulse Resp B/P (MAP) Pulse Ox O2 Delivery O2 Flow Rate FiO2 02/24/20 14:00 97.1 64 20 125/69 (87) 98 Room Air Laboratory Data CBC/BMP Laboratory Tests 02/24/20 06:03 Labs 24H Laboratory Tests 2 02/24/20 06:03: Immature Granulocyte % (Auto) 0.2, Neutrophils (%) (Auto) 71.8H, Lymphocytes (%) (Auto) 16.4L, Monocytes (%) (Auto) 8.8H, Eosinophils (%) (Auto) 2.4, Basophils (%) (Auto) 0.4, Neutrophils # (Auto) 3.6, Lymphocytes # (Auto) 0.8L, Monocytes # (Auto) 0.4, Eosinophils # (Auto) 0.1, Basophils # (Auto) 0.0, Nucleated Red Blood Cells % (auto) 0.0, Anion Gap 7L, Glomerular Filtration Rate > 60.0, Calcium Level 8.6 Current Medications Current Medications Current Medications Medications (Trade) Dose Ordered Sig/Edie Route PRN Reason Start Time Stop Time Status Last Admin Dose Admin Acetaminophen (Tylenol Tab) 650 mg Q4HP PRN PO fever/MILD PAIN (PS 1-4) 02/14/20 14:15 02/20/20 12:41 Acetaminophen/ Butalbital/ Caffeine (Fioricet) 1 ea Q4HP PRN PO HEADACHE 02/20/20 15:30 02/22/20 11:59 Apixaban (Eliquis) 5 mg BID PO 02/14/20 21:00 02/24/20 08:43 Aspirin (Ecotrin) 81 mg DAILY PO 02/15/20 09:00 02/24/20 08:43 Atorvastatin Calcium (Lipitor) 40 mg DAILY PO 02/15/20 09:00 02/24/20 08:43 Bisacodyl (Dulcolax Suppository) 10 mg DAILYPRN PRN [place] CONSTIPATION 02/14/20 14:15 Digoxin (Lanoxin) 0.25 mg DAILY PO 02/15/20 09:00 02/24/20 08:43 Docusate Sodium (Colace) 100 mg BID PO 02/14/20 21:00 02/24/20 08:43 Fluoxetine HCl (PROzac) 20 mg DAILY PO 02/14/20 09:00 02/24/20 08:43 Gabapentin (Neurontin) 100 mg TID PO 02/14/20 16:00 02/24/20 15:04 Home Med (Med Rec Complete!) ASDIRECTED XX 02/14/20 13:45 02/14/20 13:42 DC Meclizine HCl (Antivert) 25 mg Q4HP PRN PO DIZZINESS 02/24/20 13:00 Metoprolol Succinate (TopROL XL) 50 mg DAILY PO 02/15/20 09:00 02/24/20 08:43 Montelukast Sodium (Singulair) 10 mg QHS PO 02/14/20 21:00 02/23/20 21:20 Pantoprazole Sodium (Protonix) 40 mg DAILY PO 02/14/20 09:00 02/24/20 08:42 Sacubitril/ Valsartan (Entresto 49-51 Mg) 1 tab BID PO 02/14/20 21:00 02/24/20 08:43 Senna (Senokot) 1 tab QHS PO 02/14/20 21:00 02/21/20 21:51 Trazodone HCl (Desyrel) 25 mg ASDIRECTED PRN PO insomnia 02/18/20 01:00 02/18/20 04:00 DC Trazodone HCl (Desyrel) 25 mg QHS PO 02/17/20 21:00 02/17/20 13:35 DC Trazodone HCl (Desyrel) 50 mg QHS PO 02/17/20 21:00 02/23/20 21:20 JOELLEN CORDON MD February 24, 2020 16:54
[2020-02-24 20:00] VITALS: BP 120/58
[2020-02-24] MEDS: SENNA 8.6 MG TAB (SENOKOT) PO SCH (21:00)
[2020-02-24] MEDS: traZODone 50 MG TAB PO SCH (21:09)
[2020-02-24] MEDS: MONTELUKAST 10 MG TAB PO SCH (21:09)
[2020-02-25 06:00] VITALS: BP 99/54
[2020-02-25] MEDS: ATORVASTATIN 20 MG TAB PO SCH (08:44)
[2020-02-25] MEDS: PANTOPRAZOLE 40MG TAB (PROTONIX) PO SCH (08:44)
[2020-02-25] MEDS: ENTRESTO 49-51MG TABLET (SACUBITRIL/VALSARTAN) PO SCH ×2 (08:44→20:25)
[2020-02-25] MEDS: APIXABAN 5 MG TAB (ELIQUIS) PO SCH ×2 (08:44→20:25)
[2020-02-25] MEDS: ASPIRIN 81 MG ENTERIC TAB PO SCH (08:44)
[2020-02-25] MEDS: GABAPENTIN 100 MG CAP PO SCH ×3 (08:44→20:25)
[2020-02-25] MEDS: DIGOXIN 0.25 MG TAB PO SCH (08:44)
[2020-02-25] MEDS: FLUoxetine 20 MG CAP PO SCH (08:45)
[2020-02-25] MEDS: DOCUSATE SODIUM 100 MG CAP PO SCH ×2 (08:45→19:55)
[2020-02-25] MEDS: METOPROLOL SUCC (TopROL XL) 50MG **XL** TAB PO SCH (08:45)
--- NOTE | 2020-02-25 09:04 | IPN ---
DATE: 02/24/2020 The patient says that when she gets up she gets a little dizzy when she gets up too quickly. She had a similar episode before when she was diagnosed with vertigo and meclizine usually helps and she is requesting meclizine as needed. She otherwise says that she is working well with physical therapy. Per physical therapy (PT), she is improving slightly. She is a bit frustrated because she says, "This is my fourth stroke". The patient is compliant with her medication. Blood pressure has been well controlled. She is currently on Eliquis 5 mg twice a day and ENTRESTO. The patient also complains of difficulty concentrating and recent memory loss. She does not recall anything that she has done yesterday or anything that she may have done just an hour or two hours ago. She is becoming increasingly frustrated, thinking that this is all related to her stroke and that she has to be reminded several times during the day that she had already done something. Vital Signs: Temperature 98, pulse 68, respiratory rate 18, blood pressure 132/68 and 97% on room air. Generally, the patient is awake, alert and oriented to person and place. She is having some difficulty with the date. The patient has a visual field defect on the right. Face is symmetric. The tongue is midline. No jugular venous distention (JVD) or thyromegaly. Lungs are clear to auscultation. No wheezing or rales. Heart: S1, S2. Regular rate and rhythm. Abdomen is soft. Nontender. Nondistended. Obese abdomen. Extremities: No cyanosis, clubbing, or pitting edema. Left lower extremity is 4/5 strength, right upper extremity is 5/5 strength. Laboratory data has been reviewed. ASSESSMENT AND PLAN: This is a 49-year-old female admitted on 02/11/2020 to 02/14/2020 to the medical unit with complaints of left sided weakness when she woke up and went to work as usual and then felt numbness on her face, arm and leg that felt heavy. CT of the head was normal. She refused tissue plasminogen activator. She was in sinus rhythm. She was kept on metoprolol, Eliquis, atorvastatin. She has visual impairment with bilateral hemianopsia. Aspirin was added per Dr. Rachel, neurologist industrial education teacher during that admission and continued on atorvastatin to followup as outpatient. The patient was then admitted to the inpatient rehabilitation unit for further management. ACTIVE ISSUES: 1. Recurrent cerebrovascular accident (CVA) with right sided ischemic stroke and left sided hemiparesis with left hemisensory loss. MRI of the brain showed a right thalamic and hypothalamic infarct extending into the right cerebral peduncle. The patient is continued on Eliquis, aspirin and atorvastatin. 2. Paroxysmal atrial fibrillation. Currently on metoprolol, digoxin and Eliquis. 3. Diastolic heart failure with grade 2 diastolic dysfunction and mild left ventricular hypertrophy (LVH). Echo done on 02/12/2020 shows mild to moderate tricuspid insufficiency, ejection fraction of 55%. The patient is continued on ENTRESTO one tablet twice a day. 4. Vertigo. The patient is requesting as needed meclizine. The patient may be orthostatic. If recurrent symptoms, may check orthostatic vitals. [facility]
--- NOTE | 2020-02-25 12:52 | IPNPDOC ---
PM&R Progress Note DATE OF SERVICE: February 25, 2020 Premium Service Representative Progress Note Subjective: Patient reporting she is feeling well, has no complaints, and that the AFO is not hurting her ankle. REVIEW OF SYSTEMS: The following is a completed review of systems and has been reviewed. Review of systems otherwise unremarkable. PAIN: Patient self reports +headache EYES: +bilateral blurred vision, chronic hemianopsia EARS, NOSE, & THROAT: No throat pain, or dysphagia, or rhinorrhea CARDIOVASCULAR: Denies chest pain or palpitations PULMONARY: Denies shortness of breath GASTROINTESTINAL: Denies constipation/diarrhea GENITOURINARY: denies dysuria MUSCULOSKELETAL: left sided weakness NEUROLOGICAL:left sided paresis with paresthesias HEMATOLOGICAL: denies easy bruising SKIN: no rash PSYCHIATRIC: Unremarkable All other review of systems found to be negative. PHYSICAL EXAMINATION: VITAL SIGNS: Please see below. GENERAL: Pleasant and cooperative. No acute distress. HEENT: PERRL. Extraocular movements intact. Clear conjunctiva. CARDIOVASCULAR: Regular rate and rhythm. No murmurs, rubs, or gallops LUNGS: Clear to auscultation bilaterally. No wheezes. No rhonchi ABDOMEN: Soft, nontender, nondistended. Positive bowel sounds. Normal active bowel sounds NEUROLOGICAL: Alert and oriented times three. Cranial nerves II through XII grossly intact. 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 5-/5 strength in left lower extremity. SKIN: blanchable erythema sacrum ASSESSMENT:49-year-old F with past medical history of CVA who presents status post new stroke PLAN: 1. Rehab- PT/OT advance gait and ADL, strengthen/stretch/maintain ROM all 4 limbs, consider AFO for LLE, consider CIMT for LUE, ambulating HOUSING MANAGEMENT REPRESENTATIVE- for swallow eval, safe on thins and regular solids 2. 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 Cardiac: hx of cor triatrium s/p repair, Afib on Eliquis, c/u Digoxin, metoprolol- medicine consulted to assist in overall management -HTN- c/u sacubitril-valsartan home medication, on ASA -grade 2 diastolic dysfunction c/u fluid restriction, daily weight 4. resp: hx of FLO, c/u nocturnal 02 and refer to pulmonology for CPAP -Incentive spirometry, monitor for infection 5. Gi ppx: protonix 6. DVT ppx: on eliquis, teds 7. Pain: Tylenol prn, gabapentin 100 TID -c/u Fiorcet prn as patient report this is helping 8. Psych: patient reporting insomnia, improved with trazodone 50mg qHS, c/u 8. Dispo: 03-04-20 to home, progressing towards goals Allergies Coded Allergies: NUTS (Verified Allergy, Intermediate, Hives, 02/14/20) Olives (Verified Allergy, Intermediate, Hives, 02/14/20) Latex, Natural Rubber (Verified Allergy, Mild, Dermatitis, 02/14/20) Quinolones (Verified Allergy, Unknown, 11/24/19) clindamycin (Verified Allergy, Unknown, 11/24/19) codeine (Verified Allergy, Unknown, 11/24/19) erythromycin base (Verified Allergy, Unknown, 11/24/19) gentamicin (Verified Allergy, Unknown, 11/24/19) sulfamethoxazole (Verified Allergy, Unknown, 11/24/19) trimethoprim (Verified Allergy, Unknown, 11/24/19) vancomycin (Verified Allergy, Unknown, 11/24/19) levofloxacin (Verified Adverse Reaction, Mild, itching, 02/11/20) Vital Signs Vital Signs Date Time Temp Pulse Resp B/P (MAP) Pulse Ox O2 Delivery O2 Flow Rate FiO2 02/25/20 08:45 66 130/71 02/25/20 06:00 97.1 18 99 Room Air Current Medications Current Medications Current Medications Medications (Trade) Dose Ordered Sig/Edie Route PRN Reason Start Time Stop Time Status Last Admin Dose Admin Acetaminophen (Tylenol Tab) 650 mg Q4HP PRN PO fever/MILD PAIN (PS 1-4) 02/14/20 14:15 02/20/20 12:41 Acetaminophen/ Butalbital/ Caffeine (Fioricet) 1 ea Q4HP PRN PO HEADACHE 02/20/20 15:30 02/22/20 11:59 Apixaban (Eliquis) 5 mg BID PO 02/14/20 21:00 02/25/20 08:44 Aspirin (Ecotrin) 81 mg DAILY PO 02/15/20 09:00 02/25/20 08:44 Atorvastatin Calcium (Lipitor) 40 mg DAILY PO 02/15/20 09:00 02/25/20 08:44 Bisacodyl (Dulcolax Suppository) 10 mg DAILYPRN PRN [place] CONSTIPATION 02/14/20 14:15 Digoxin (Lanoxin) 0.25 mg DAILY PO 02/15/20 09:00 02/25/20 08:44 Docusate Sodium (Colace) 100 mg BID PO 02/14/20 21:00 02/24/20 08:43 Fluoxetine HCl (PROzac) 20 mg DAILY PO 02/14/20 09:00 02/25/20 08:45 Gabapentin (Neurontin) 100 mg TID PO 02/14/20 16:00 02/25/20 08:44 Home Med (Med Rec Complete!) ASDIRECTED XX 02/14/20 13:45 02/14/20 13:42 DC Meclizine HCl (Antivert) 25 mg Q4HP PRN PO DIZZINESS 02/24/20 13:00 Metoprolol Succinate (TopROL XL) 50 mg DAILY PO 02/15/20 09:00 02/25/20 08:45 Montelukast Sodium (Singulair) 10 mg QHS PO 02/14/20 21:00 02/24/20 21:09 Pantoprazole Sodium (Protonix) 40 mg DAILY PO 02/14/20 09:00 02/25/20 08:44 Sacubitril/ Valsartan (Entresto 49-51 Mg) 1 tab BID PO 02/14/20 21:00 02/25/20 08:44 Senna (Senokot) 1 tab QHS PO 02/14/20 21:00 02/21/20 21:51 Trazodone HCl (Desyrel) 25 mg ASDIRECTED PRN PO insomnia 02/18/20 01:00 02/18/20 04:00 DC Trazodone HCl (Desyrel) 25 mg QHS PO 02/17/20 21:00 02/17/20 13:35 DC Trazodone HCl (Desyrel) 50 mg QHS PO 02/17/20 21:00 02/24/20 21:09 JOELLEN CORDON MD February 25, 2020 12:52
[2020-02-25 14:00] VITALS: BP 105/67
--- NOTE | 2020-02-25 18:06 | IPNPDOC ---
Date Seen The patient was seen on 02/25/20. Progress Note SUBJECTIVE: (Per Dr. Berry's H&P consult) Pt is a 49 yoF with PMH of Congenital heart defect repair; Cor triatriatum, A. 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 Patient refused TPA at that time and underwent conservative medical management. A she was started on aspirin as per neurology recommendations and was monitored and admitted to rehab. Pt was previously medically followed by hospitalist Dr. Berry and Dr. Kasper. She denies any pain or any issues, nonetheless, on 02/24/2020. She did report dizziness, which has subsequently resolved. OBJECTIVE PHYSICAL EXAMINATION: VITAL SIGNS: Please see below. GENERAL: Pleasant female in no acute respiratory distress HEENT: NC/AT, MMM CARDIOVASCULAR: S1/S2 RESPIRATORY: CTAB ABDOMINAL: +BS EXTREMITIES: no edema NEUROLOGICAL: awake, finger to nose intact, slight tremors on LUE with fine movement PSYCHOLOGICAL: appropriate affect ASSESSMENT AND PLAN: Pt is a 49 yoF with PMH of Congenital heart defect repair; Cor triatriatum, A. 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 ACTIVE ISSUES: #Recurrent cerebrovascular accident (CVA) with right sided ischemic stroke and left sided hemiparesis with left hemisensory loss with MRI of the brain revealing R thalamic and hypothalamic infarct extending into the right cerebral peduncle. Continued on Eliquis, aspirin and atorvastatin. Consider resuming home gabapentin prn? #Paroxysmal atrial fibrillation, continue metoprolol, digoxin and Eliquis. #Hx of Cor tritratum and Diastolic heart failure with grade 2 diastolic dysfunction and mild left ventricular hypertrophy (LVH). Echo done on 02/12/2020 shows mild to moderate tricuspid insufficiency, ejection fraction of 55%. ENTRESTO one tablet twice a day #asthma/FLO? cont home montelukast # Vertigo. resolved, cont meclizine prn, consider rechecking orthostatic vitals DVT ppx: freq ambulation, SCD, labs reviewed, no additional changes from p revious medical management. Full code: thank you for the consult VS, I&O, 24H, [place] Vital Signs/I&O Vital Signs Date Time Temp Pulse Resp B/P (MAP) Pulse Ox O2 Delivery O2 Flow Rate FiO2 02/25/20 14:00 97.7 74 18 105/67 (80) 95 Room Air I&O- Last 24 Hours up to 6 AM 02/25/20 06:00 Intake Total 475 ml Balance 475 ml SATISH SUMMERS MD February 25, 2020 18:06
[2020-02-25] MEDS: SENNA 8.6 MG TAB (SENOKOT) PO SCH (19:55)
[2020-02-25 20:00] VITALS: BP 125/68
[2020-02-25] MEDS: traZODone 50 MG TAB PO SCH (20:25)
[2020-02-25] MEDS: MONTELUKAST 10 MG TAB PO SCH (20:25)
[2020-02-26 06:00] VITALS: BP 120/61
[2020-02-26 06:49] LABS: BASO % 0.4 % (0.0-1.0); EOS # 0.2 10^3/uL (0.0-0.5); EOS % 2.8 % (0.0-3.0); HEMATOCRIT 33.6 % (36.0-47.0); HEMOGLOBIN 10.3 g/dl (12.0-15.5); LYMPH % 18.5 % (24.0-44.0); MEAN CORPUSCULAR HEMOGLOBIN 27.6 pg (27.0-33.0); MEAN CORPUSCULAR HGB CONC 30.7 g/dl (32.0-36.5); MEAN CORPUSCULAR VOLUME 90.1 fl (80.0-96.0); MONO # 0.4 10^3/uL (0.0-0.8); MONO % 8.3 % (0.0-5.0); NEUTROPHILS # 3.7 10^3/uL (1.5-8.5); NEUTROPHILS % 69.4 % (36.0-66.0); PLATELET COUNT, AUTOMATED 218 10^3/uL (150-450); RED BLOOD COUNT 3.73 10^6/uL (4.00-5.40); WHITE BLOOD COUNT 5.3 10^3/uL (4.0-10.0)
[2020-02-26 07:14] LABS: BLOOD UREA NITROGEN 17 MG/DL (7-18); CALCIUM LEVEL 8.7 MG/DL (8.5-10.1); CARBON DIOXIDE LEVEL 27 MEQ/L (21-32); CHLORIDE LEVEL 105 MEQ/L (98-107); CREATININE FOR GFR 0.68 MG/DL (0.55-1.30); GLOMERULAR FILTRATION RATE > 60.0 (>51); GLUCOSE, FASTING 98 MG/DL (70-100); POTASSIUM SERUM 4.2 MEQ/L (3.5-5.1); SODIUM LEVEL 139 MEQ/L (136-145)
[2020-02-26] MEDS: ATORVASTATIN 20 MG TAB PO SCH (08:58)
[2020-02-26] MEDS: FLUoxetine 20 MG CAP PO SCH (08:58)
[2020-02-26] MEDS: PANTOPRAZOLE 40MG TAB (PROTONIX) PO SCH (08:58)
[2020-02-26] MEDS: ASPIRIN 81 MG ENTERIC TAB PO SCH (08:58)
[2020-02-26] MEDS: ENTRESTO 49-51MG TABLET (SACUBITRIL/VALSARTAN) PO SCH ×2 (08:58→20:48)
[2020-02-26] MEDS: APIXABAN 5 MG TAB (ELIQUIS) PO SCH ×2 (08:58→20:48)
[2020-02-26] MEDS: DOCUSATE SODIUM 100 MG CAP PO SCH ×2 (08:59→20:49)
[2020-02-26] MEDS: METOPROLOL SUCC (TopROL XL) 50MG **XL** TAB PO SCH (08:59)
[2020-02-26] MEDS: GABAPENTIN 100 MG CAP PO SCH ×3 (08:59→20:48)
[2020-02-26] MEDS: DIGOXIN 0.25 MG TAB PO SCH (08:59)
[2020-02-26 14:00] VITALS: BP 137/69
--- NOTE | 2020-02-26 15:47 | IPNPDOC ---
PM&R Progress Note DATE OF SERVICE: February 26, 2020 Program Schedule Clerk Progress Note Subjective: Patient reporting she had vestibular therapy today because she was feeling dizzy and that sometimes this happens. She reports feeling better. REVIEW OF SYSTEMS: The following is a completed review of systems and has been reviewed. Review of systems otherwise unremarkable. PAIN: Patient self reports +headache (improving) EYES: +bilateral blurred vision, chronic hemianopsia EARS, NOSE, & THROAT: No throat pain, or dysphagia, or rhinorrhea CARDIOVASCULAR: Denies chest pain or palpitations PULMONARY: Denies shortness of breath GASTROINTESTINAL: Denies constipation/diarrhea GENITOURINARY: denies dysuria MUSCULOSKELETAL: left sided weakness NEUROLOGICAL:left sided paresis with paresthesias HEMATOLOGICAL: denies easy bruising SKIN: no rash PSYCHIATRIC: Unremarkable All other review of systems found to be negative. PHYSICAL EXAMINATION: VITAL SIGNS: Please see below. GENERAL: Pleasant and cooperative. No acute distress. HEENT: PERRL. Extraocular movements intact. Clear conjunctiva. CARDIOVASCULAR: Regular rate and rhythm. No murmurs, rubs, or gallops LUNGS: Clear to auscultation bilaterally. No wheezes. No rhonchi ABDOMEN: Soft, nontender, nondistended. Positive bowel sounds. Normal active bowel sounds NEUROLOGICAL: Alert and oriented times three. Cranial nerves II through XII grossly intact. Sensation grossly diminished to light touch LUE +3 beats clonus on left and +babinksi on left EXTREMITIES: 5\5 strength right upper extremity, 3+/5 left elbow flexors/extensors, carton repairer 5\5 strength right lower extremity. 5-/5 strength in left lower extremity. SKIN: blanchable erythema sacrum ASSESSMENT:49-year-old F with past medical history of CVA who presents status post new stroke PLAN: 1. Rehab- PT/OT advance gait and ADL, strengthen/stretch/maintain ROM all 4 limbs, consider AFO for LLE, consider CIMT for LUE, ambulating SERVICE ELECTRICIAN- for swallow eval, safe on thins and regular solids 2. Neuro- hx of stroke with residual right sided hemianopsia, now with right thalamic/hypothalamic infarct causing non-dominant paresis, mobility and ADL impairments, patient likely having some thermoregulation dysfunction in her left side due to her new lesion, no concern at this time for vascular impairment, strength and coordination stable -memory/concentration impairment is likely due to recent stroke- has been assessed by SERVICE ELECTRICIAN -c/u ASA, statin and good BP control for secondary stroke prevention -c/u prozac for motor recovery 3. Cardiac: hx of cor triatrium s/p repair, Afib on Eliquis, c/u Digoxin, metoprolol- medicine consulted to assist in overall management -HTN- c/u sacubitril-valsartan home medication, on ASA -grade 2 diastolic dysfunction c/u fluid restriction, daily weight 4. resp: hx of FLO, c/u nocturnal 02 and refer to pulmonology for CPAP -Incentive spirometry, monitor for infection 5. Gi ppx: protonix 6. DVT ppx: on eliquis, teds 7. Pain: Tylenol prn, gabapentin 100 TID -c/u Fiorcet prn as patient report this is helping 8. Psych: patient reporting insomnia, improved with trazodone 50mg qHS, c/u 8. Dispo: 03-04-20 to home, progressing towards goals Allergies Coded Allergies: NUTS (Verified Allergy, Intermediate, Hives, 02/14/20) Olives (Verified Allergy, Intermediate, Hives, 02/14/20) Latex, Natural Rubber (Verified Allergy, Mild, Dermatitis, 02/14/20) Quinolones (Verified Allergy, Unknown, 11/24/19) clindamycin (Verified Allergy, Unknown, 11/24/19) codeine (Verified Allergy, Unknown, 11/24/19) erythromycin base (Verified Allergy, Unknown, 11/24/19) gentamicin (Verified Allergy, Unknown, 11/24/19) sulfamethoxazole (Verified Allergy, Unknown, 11/24/19) trimethoprim (Verified Allergy, Unknown, 11/24/19) vancomycin (Verified Allergy, Unknown, 11/24/19) levofloxacin (Verified Adverse Reaction, Mild, itching, 02/11/20) Vital Signs Vital Signs Date Time Temp Pulse Resp B/P (MAP) Pulse Ox O2 Delivery O2 Flow Rate FiO2 02/26/20 14:00 97.9 65 17 137/69 (91) 98 Room Air Laboratory Data CBC/BMP Laboratory Tests 02/26/20 06:20 Labs 24H Laboratory Tests 2 02/26/20 06:20: Immature Granulocyte % (Auto) 0.6, Neutrophils (%) (Auto) 69.4H, Lymphocytes (%) (Auto) 18.5L, Monocytes (%) (Auto) 8.3H, Eosinophils (%) (Auto) 2.8, Basophils (%) (Auto) 0.4, Neutrophils # (Auto) 3.7, Lymphocytes # (Auto) 1.0L, Monocytes # (Auto) 0.4, Eosinophils # (Auto) 0.2, Basophils # (Auto) 0.0, Nucleated Red Blood Cells % (auto) 0.0, Anion Gap 7L, Glomerular Filtration Rate > 60.0, Calcium Level 8.7 Current Medications Current Medications Current Medications Medications (Trade) Dose Ordered Sig/Edie Route PRN Reason Start Time Stop Time Status Last Admin Dose Admin Acetaminophen (Tylenol Tab) 650 mg Q4HP PRN PO fever/MILD PAIN (PS 1-4) 02/14/20 14:15 02/20/20 12:41 Acetaminophen/ Butalbital/ Caffeine (Fioricet) 1 ea Q4HP PRN PO HEADACHE 02/20/20 15:30 02/22/20 11:59 Apixaban (Eliquis) 5 mg BID PO 02/14/20 21:00 02/26/20 08:58 Aspirin (Ecotrin) 81 mg DAILY PO 02/15/20 09:00 02/26/20 08:58 Atorvastatin Calcium (Lipitor) 40 mg DAILY PO 02/15/20 09:00 02/26/20 08:58 Bisacodyl (Dulcolax Suppository) 10 mg DAILYPRN PRN [place] CONSTIPATION 02/14/20 14:15 Digoxin (Lanoxin) 0.25 mg DAILY PO 02/15/20 09:00 02/26/20 08:59 Docusate Sodium (Colace) 100 mg BID PO 02/14/20 21:00 02/24/20 08:43 Fluoxetine HCl (PROzac) 20 mg DAILY PO 02/14/20 09:00 02/26/20 08:58 Gabapentin (Neurontin) 100 mg TID PO 02/14/20 16:00 02/26/20 08:59 Home Med (Med Rec Complete!) ASDIRECTED XX 02/14/20 13:45 02/14/20 13:42 DC Meclizine HCl (Antivert) 25 mg Q4HP PRN PO DIZZINESS 02/24/20 13:00 Metoprolol Succinate (TopROL XL) 50 mg DAILY PO 02/15/20 09:00 02/26/20 08:59 Montelukast Sodium (Singulair) 10 mg QHS PO 02/14/20 21:00 02/25/20 20:25 Pantoprazole Sodium (Protonix) 40 mg DAILY PO 02/14/20 09:00 02/26/20 08:58 Sacubitril/ Valsartan (Entresto 49-51 Mg) 1 tab BID PO 02/14/20 21:00 02/26/20 08:58 Senna (Senokot) 1 tab QHS PO 02/14/20 21:00 02/21/20 21:51 Trazodone HCl (Desyrel) 25 mg ASDIRECTED PRN PO insomnia 02/18/20 01:00 02/18/20 04:00 DC Trazodone HCl (Desyrel) 25 mg QHS PO 02/17/20 21:00 02/17/20 13:35 DC Trazodone HCl (Desyrel) 50 mg QHS PO 02/17/20 21:00 02/25/20 20:25 JOELLEN CORDON MD February 26, 2020 15:47
[2020-02-26 20:00] VITALS: BP 194/68
[2020-02-26] MEDS: traZODone 50 MG TAB PO SCH (20:48)
[2020-02-26] MEDS: MONTELUKAST 10 MG TAB PO SCH (20:48)
[2020-02-26] MEDS: SENNA 8.6 MG TAB (SENOKOT) PO SCH (20:49)
[2020-02-26 20:50] VITALS: BP 126/58
[2020-02-27 05:44] VITALS: BP 112/56
[2020-02-27] MEDS: DOCUSATE SODIUM 100 MG CAP PO SCH ×2 (09:00→21:00)
[2020-02-27] MEDS: PANTOPRAZOLE 40MG TAB (PROTONIX) PO SCH (09:02)
[2020-02-27] MEDS: APIXABAN 5 MG TAB (ELIQUIS) PO SCH ×2 (09:02→21:36)
[2020-02-27] MEDS: ENTRESTO 49-51MG TABLET (SACUBITRIL/VALSARTAN) PO SCH ×2 (09:02→21:36)
[2020-02-27] MEDS: ATORVASTATIN 20 MG TAB PO SCH (09:02)
[2020-02-27] MEDS: GABAPENTIN 100 MG CAP PO SCH ×3 (09:02→21:36)
[2020-02-27] MEDS: METOPROLOL SUCC (TopROL XL) 50MG **XL** TAB PO SCH (09:06)
[2020-02-27] MEDS: DIGOXIN 0.25 MG TAB PO SCH (09:07)
[2020-02-27] MEDS: FLUoxetine 20 MG CAP PO SCH (09:07)
[2020-02-27] MEDS: ASPIRIN 81 MG ENTERIC TAB PO SCH (09:07)
[2020-02-27 14:00] VITALS: BP 122/61
[2020-02-27 20:00] VITALS: BP 128/76
[2020-02-27] MEDS: SENNA 8.6 MG TAB (SENOKOT) PO SCH (21:00)
[2020-02-27] MEDS: traZODone 50 MG TAB PO SCH (21:36)
[2020-02-27] MEDS: MONTELUKAST 10 MG TAB PO SCH (21:36)
[2020-02-28 06:00] VITALS: BP 130/62
[2020-02-28 07:06] LABS: BASO % 0.4 % (0.0-1.0); EOS # 0.2 10^3/uL (0.0-0.5); EOS % 3.2 % (0.0-3.0); HEMATOCRIT 31.2 % (36.0-47.0); HEMOGLOBIN 9.8 g/dl (12.0-15.5); LYMPH # 0.8 10^3/uL (1.5-5.0); LYMPH % 15.7 % (24.0-44.0); MEAN CORPUSCULAR HEMOGLOBIN 27.8 pg (27.0-33.0); MEAN CORPUSCULAR HGB CONC 31.4 g/dl (32.0-36.5); MEAN CORPUSCULAR VOLUME 88.6 fl (80.0-96.0); MONO # 0.4 10^3/uL (0.0-0.8); MONO % 8.4 % (0.0-5.0); NEUTROPHILS # 3.6 10^3/uL (1.5-8.5); NEUTROPHILS % 72.1 % (36.0-66.0); PLATELET COUNT, AUTOMATED 195 10^3/uL (150-450); RED BLOOD COUNT 3.52 10^6/uL (4.00-5.40)
[2020-02-28 07:31] LABS: BLOOD UREA NITROGEN 13 MG/DL (7-18); CALCIUM LEVEL 9.1 MG/DL (8.5-10.1); CARBON DIOXIDE LEVEL 30 MEQ/L (21-32); CHLORIDE LEVEL 103 MEQ/L (98-107); CREATININE FOR GFR 0.63 MG/DL (0.55-1.30); GLOMERULAR FILTRATION RATE > 60.0 (>51); GLUCOSE, FASTING 93 MG/DL (70-100); POTASSIUM SERUM 4.2 MEQ/L (3.5-5.1); SODIUM LEVEL 138 MEQ/L (136-145)
[2020-02-28] MEDS: GABAPENTIN 100 MG CAP PO SCH ×3 (08:41→21:33)
[2020-02-28] MEDS: ATORVASTATIN 20 MG TAB PO SCH (08:41)
[2020-02-28] MEDS: PANTOPRAZOLE 40MG TAB (PROTONIX) PO SCH (08:41)
[2020-02-28] MEDS: DIGOXIN 0.25 MG TAB PO SCH (08:41)
[2020-02-28] MEDS: APIXABAN 5 MG TAB (ELIQUIS) PO SCH ×2 (08:41→21:33)
[2020-02-28] MEDS: ENTRESTO 49-51MG TABLET (SACUBITRIL/VALSARTAN) PO SCH ×2 (08:41→21:33)
[2020-02-28] MEDS: ASPIRIN 81 MG ENTERIC TAB PO SCH (08:41)
[2020-02-28] MEDS: FLUoxetine 20 MG CAP PO SCH (08:42)
[2020-02-28] MEDS: METOPROLOL SUCC (TopROL XL) 50MG **XL** TAB PO SCH (08:42)
[2020-02-28] MEDS: DOCUSATE SODIUM 100 MG CAP PO SCH ×2 (08:42→21:33)
--- NOTE | 2020-02-28 09:57 | IPNPDOC ---
PM&R Progress Note DATE OF SERVICE: February 27, 2020 [employer] Progress Note Subjective: Patient seen on the [facility] stating her dizziness is better today and she is able to walk short distances with a quad cane. REVIEW OF SYSTEMS: The following is a completed review of systems and has been reviewed. Review of systems otherwise unremarkable. PAIN: Patient self reports +headache (improving) EYES: +bilateral blurred vision, chronic hemianopsia EARS, NOSE, & THROAT: No throat pain, or dysphagia, or rhinorrhea CARDIOVASCULAR: Denies chest pain or palpitations PULMONARY: Denies shortness of breath GASTROINTESTINAL: Denies constipation/diarrhea GENITOURINARY: denies dysuria MUSCULOSKELETAL: left sided weakness NEUROLOGICAL:left sided paresis with paresthesias HEMATOLOGICAL: denies easy bruising SKIN: no rash PSYCHIATRIC: Unremarkable All other review of systems found to be negative. PHYSICAL EXAMINATION: VITAL SIGNS: Please see below. GENERAL: Pleasant and cooperative. No acute distress. HEENT: PERRL. Extraocular movements intact. Clear conjunctiva. CARDIOVASCULAR: Regular rate and rhythm. No murmurs, rubs, or gallops LUNGS: Clear to auscultation bilaterally. No wheezes. No rhonchi ABDOMEN: Soft, nontender, nondistended. Positive bowel sounds. Normal active bowel sounds NEUROLOGICAL: Alert and oriented times three. Cranial nerves II through XII grossly intact. Sensation grossly diminished to light touch LUE +3 beats clonus on left and +babinksi on left EXTREMITIES: 5\5 strength right upper extremity, 3+/5 left elbow fle xors/extensors, plow shaker 5\5 strength right lower extremity. 5-/5 strength in left lower extremity. SKIN: blanchable erythema sacrum ASSESSMENT:49-year-old F with past medical history of CVA who presents status post new stroke PLAN: 1. Rehab- PT/OT advance gait and ADL, strengthen/stretch/maintain ROM all 4 limbs, consider AFO for LLE, consider CIMT for LUE, ambulating short distancs with quad cane FURNACE UTILITY OPERATOR- for swallow eval, safe on thins and regular solids 2. Neuro- hx of stroke with residual right sided hemianopsia, now with right thalamic/hypothalamic infarct causing non-dominant paresis, mobility and ADL impairments, patient likely having some thermoregulation dysfunction in her left side due to her new lesion, no concern at this time for vascular impairment, strength and coordination stable -memory/concentration impairment is likely due to recent stroke- has been assessed by FURNACE UTILITY OPERATOR -c/u ASA, statin and good BP control for secondary stroke prevention -c/u prozac for motor recovery 3. Cardiac: hx of cor triatrium s/p repair, Afib on Eliquis, c/u Digoxin, metoprolol- medicine consulted to assist in overall management -HTN- c/u sacubitril-valsartan home medication, on ASA -grade 2 diastolic dysfunction c/u fluid restriction, daily weight 4. resp: hx of FLO, c/u nocturnal 02 and refer to pulmonology for CPAP -Incentive spirometry, monitor for infection 5. Gi ppx: protonix 6. DVT ppx: on eliquis, teds 7. Pain: Tylenol prn, gabapentin 100 TID -c/u Fiorcet prn as patient report this is helping 8. Psych: patient reporting insomnia, improved with trazodone 50mg qHS, c/u 8. Dispo: 03-04-20 to home, progressing towards goals Allergies Coded Allergies: NUTS (Verified Allergy, Intermediate, Hives, 02/14/20) Olives (Verified Allergy, Intermediate, Hives, 02/14/20) Latex, Natural Rubber (Verified Allergy, Mild, Dermatitis, 02/14/20) Quinolones (Verified Allergy, Unknown, 11/24/19) clindamycin (Verified Allergy, Unknown, 11/24/19) codeine (Verified Allergy, Unknown, 11/24/19) erythromycin base (Verified Allergy, Unknown, 11/24/19) gentamicin (Verified Allergy, Unknown, 11/24/19) sulfamethoxazole (Verified Allergy, Unknown, 11/24/19) trimethoprim (Verified Allergy, Unknown, 11/24/19) vancomycin (Verified Allergy, Unknown, 11/24/19) levofloxacin (Verified Adverse Reaction, Mild, itching, 02/11/20) Vital Signs Vital Signs Date Time Temp Pulse Resp B/P (MAP) Pulse Ox O2 Delivery O2 Flow Rate FiO2 02/28/20 08:42 63 130/62 02/28/20 06:00 98.3 16 96 Room Air Laboratory Data CBC/BMP Laboratory Tests 02/28/20 06:28 Labs 24H Laboratory Tests 2 02/28/20 06:28: Immature Granulocyte % (Auto) 0.2, Neutrophils (%) (Auto) 72.1H, Lymphocytes (%) (Auto) 15.7L, Monocytes (%) (Auto) 8.4H, Eosinophils (%) (Auto) 3.2H, Basophils (%) (Auto) 0.4, Neutrophils # (Auto) 3.6, Lymphocytes # (Auto) 0.8L, Monocytes # (Auto) 0.4, Eosinophils # (Auto) 0.2, Basophils # (Auto) 0.0, Nucleated Red Bl ood Cells % (auto) 0.0, Anion Gap 5L, Glomerular Filtration Rate > 60.0, Calcium Level 9.1 Current Medications Current Medications Current Medications Medications (Trade) Dose Ordered Sig/Edie Route PRN Reason Start Time Stop Time Status Last Admin Dose Admin Acetaminophen (Tylenol Tab) 650 mg Q4HP PRN PO fever/MILD PAIN (PS 1-4) 02/14/20 14:15 02/20/20 12:41 Acetaminophen/ Butalbital/ Caffeine (Fioricet) 1 ea Q4HP PRN PO HEADACHE 02/20/20 15:30 02/22/20 11:59 Apixaban (Eliquis) 5 mg BID PO 02/14/20 21:00 02/28/20 08:41 Aspirin (Ecotrin) 81 mg DAILY PO 02/15/20 09:00 02/28/20 08:41 Atorvastatin Calcium (Lipitor) 40 mg DAILY PO 02/15/20 09:00 02/28/20 08:41 Bisacodyl (Dulcolax Suppository) 10 mg DAILYPRN PRN [place] CONSTIPATION 02/14/20 14:15 Digoxin (Lanoxin) 0.25 mg DAILY PO 02/15/20 09:00 02/28/20 08:41 Docusate Sodium (Colace) 100 mg BID PO 02/14/20 21:00 02/28/20 08:42 Fluoxetine HCl (PROzac) 20 mg DAILY PO 02/14/20 09:00 02/28/20 08:42 Gabapentin (Neurontin) 100 mg TID PO 02/14/20 16:00 02/28/20 08:41 Home Med (Med Rec Complete!) ASDIRECTED XX 02/14/20 13:45 02/14/20 13:42 DC Meclizine HCl (Antivert) 25 mg Q4HP PRN PO DIZZINESS 02/24/20 13:00 Metoprolol Succinate (TopROL XL) 50 mg DAILY PO 02/15/20 09:00 02/28/20 08:42 Montelukast Sodium (Singulair) 10 mg QHS PO 02/14/20 21:00 02/27/20 21:36 Pantoprazole Sodium (Protonix) 40 mg DAILY PO 02/14/20 09:00 02/28/20 08:41 Sacubitril/ Valsartan (Entresto 49-51 Mg) 1 tab BID PO 02/14/20 21:00 02/28/20 08:41 Senna (Senokot) 1 tab QHS PO 02/14/20 21:00 02/21/20 21:51 Trazodone HCl (Desyrel) 25 mg ASDIRECTED PRN PO insomnia 02/18/20 01:00 02/18/20 04:00 DC Trazodone HCl (Desyrel) 25 mg QHS PO 02/17/20 21:00 02/17/20 13:35 DC Trazodone HCl (Desyrel) 50 mg QHS PO 02/17/20 21:00 02/27/20 21:36 JOELLEN CORDON MD February 28, 2020 09:57
[2020-02-28] MEDS: ACETAMINOPHEN TAB 650MG DOSE (2X325MG) PO PRN (10:04)
[2020-02-28 14:00] VITALS: BP 107/55
[2020-02-28 20:16] VITALS: BP 148/68
[2020-02-28] MEDS: SENNA 8.6 MG TAB (SENOKOT) PO SCH ×2 (21:00→21:33)
[2020-02-28] MEDS: MONTELUKAST 10 MG TAB PO SCH (21:33)
[2020-02-28] MEDS: traZODone 50 MG TAB PO SCH (21:33)
[2020-02-29 06:00] VITALS: BP 119/58
[2020-02-29] MEDS: PANTOPRAZOLE 40MG TAB (PROTONIX) PO SCH (08:14)
[2020-02-29] MEDS: GABAPENTIN 100 MG CAP PO SCH ×3 (08:14→20:37)
[2020-02-29] MEDS: DOCUSATE SODIUM 100 MG CAP PO SCH ×2 (08:14→20:37)
[2020-02-29] MEDS: FLUoxetine 20 MG CAP PO SCH (08:14)
[2020-02-29] MEDS: ASPIRIN 81 MG ENTERIC TAB PO SCH (08:14)
[2020-02-29] MEDS: ENTRESTO 49-51MG TABLET (SACUBITRIL/VALSARTAN) PO SCH ×2 (08:15→20:36)
[2020-02-29] MEDS: ACETAMINOPHEN TAB 650MG DOSE (2X325MG) PO PRN ×2 (08:15→20:37)
[2020-02-29] MEDS: APIXABAN 5 MG TAB (ELIQUIS) PO SCH ×2 (08:15→20:37)
[2020-02-29] MEDS: ATORVASTATIN 20 MG TAB PO SCH (08:15)
[2020-02-29] MEDS: DIGOXIN 0.25 MG TAB PO SCH (08:15)
[2020-02-29] MEDS: METOPROLOL SUCC (TopROL XL) 50MG **XL** TAB PO SCH (08:16)
[2020-02-29 14:00] VITALS: BP 126/63
[2020-02-29 20:30] VITALS: BP 117/67
[2020-02-29] MEDS: SENNA 8.6 MG TAB (SENOKOT) PO SCH (20:37)
[2020-02-29] MEDS: traZODone 50 MG TAB PO SCH (20:37)
[2020-02-29] MEDS: MONTELUKAST 10 MG TAB PO SCH (20:37)
[2020-03-01 05:15] VITALS: BP 111/57
[2020-03-01] MEDS: ENTRESTO 49-51MG TABLET (SACUBITRIL/VALSARTAN) PO SCH ×2 (07:46→21:32)
[2020-03-01] MEDS: APIXABAN 5 MG TAB (ELIQUIS) PO SCH ×2 (07:46→21:32)
[2020-03-01] MEDS: ASPIRIN 81 MG ENTERIC TAB PO SCH (07:46)
[2020-03-01] MEDS: DIGOXIN 0.25 MG TAB PO SCH (07:47)
[2020-03-01] MEDS: ATORVASTATIN 20 MG TAB PO SCH (07:47)
[2020-03-01] MEDS: METOPROLOL SUCC (TopROL XL) 50MG **XL** TAB PO SCH (07:47)
[2020-03-01] MEDS: DOCUSATE SODIUM 100 MG CAP PO SCH ×2 (07:47→21:32)
[2020-03-01] MEDS: FLUoxetine 20 MG CAP PO SCH (07:47)
[2020-03-01] MEDS: GABAPENTIN 100 MG CAP PO SCH ×3 (07:47→21:32)
[2020-03-01] MEDS: PANTOPRAZOLE 40MG TAB (PROTONIX) PO SCH (07:47)
[2020-03-01] MEDS: ACETAMINOPHEN TAB 650MG DOSE (2X325MG) PO PRN ×2 (07:48→17:31)
[2020-03-01 14:00] VITALS: BP 127/61
[2020-03-01] MEDS: SENNA 8.6 MG TAB (SENOKOT) PO SCH (21:00)
[2020-03-01 21:31] VITALS: BP 120/62
[2020-03-01] MEDS: traZODone 50 MG TAB PO SCH (21:32)
[2020-03-01] MEDS: MONTELUKAST 10 MG TAB PO SCH (21:32)
[2020-03-02 06:10] VITALS: BP 124/57
[2020-03-02] MEDS: DIGOXIN 0.25 MG TAB PO SCH (08:25)
[2020-03-02] MEDS: DOCUSATE SODIUM 100 MG CAP PO SCH ×2 (08:25→20:57)
[2020-03-02] MEDS: ASPIRIN 81 MG ENTERIC TAB PO SCH (08:25)
[2020-03-02] MEDS: ENTRESTO 49-51MG TABLET (SACUBITRIL/VALSARTAN) PO SCH ×2 (08:25→20:57)
[2020-03-02] MEDS: FLUoxetine 20 MG CAP PO SCH (08:25)
[2020-03-02] MEDS: GABAPENTIN 100 MG CAP PO SCH ×3 (08:26→20:57)
[2020-03-02] MEDS: PANTOPRAZOLE 40MG TAB (PROTONIX) PO SCH (08:26)
[2020-03-02] MEDS: APIXABAN 5 MG TAB (ELIQUIS) PO SCH ×2 (08:26→20:57)
[2020-03-02] MEDS: ATORVASTATIN 20 MG TAB PO SCH (08:26)
[2020-03-02] MEDS: METOPROLOL SUCC (TopROL XL) 50MG **XL** TAB PO SCH (08:26)
[2020-03-02] MEDS ORDERED: NITROFURANTOIN (MACROBID) 100 MG CAP PO SCH (09:00)
--- NOTE | 2020-03-02 10:14 | IPNPDOC ---
Date Seen The patient was seen on 03/02/20. Progress Note SUBJECTIVE: (Per Dr. Berry's H&P consult) Pt is a 49 yoF with PMH of Congenital heart defect repair; Cor triatriatum, A. 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 Patient refused TPA at that time and underwent conservative medical management. A she was started on aspirin as per neurology recommendations and was monitored and admitted to rehab. Pt was previously medically followed by hospitalist Dr. Berry and Dr. Kasper. She reports dizziness controlled, pt does have meclizine ordered prn. She now reports dysuria, UA was performed, suggestive of UTI, she has multiple drug allergies, well treat with Keflex for 5 days, follow-up with urine cultures. OBJECTIVE PHYSICAL EXAMINATION: VITAL SIGNS: Please see below. GENERAL: Pleasant female in no acute respiratory distress HEENT: NC/AT, MMM CARDIOVASCULAR: S1/S2 RESPIRATORY: CTAB ABDOMINAL: +BS EXTREMITIES: no edema NEUROLOGICAL: awake, finger to nose intact, slight tremors on LUE with fine movement PSYCHOLOGICAL: appropriate affect ASSESSMENT AND PLAN: Pt is a 49 yoF with PMH of Congenital heart defect repair; Cor triatriatum, A. 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 ACTIVE ISSUES: #UTI: 5 days of Keflex #vertigo/dizziness: meclizine prn #Recurrent cerebrovascular accident (CVA) with right sided ischemic stroke and left sided hemiparesis with left hemisensory loss with MRI of the brain revealing R thalamic and hypothalamic infarct extending into the right cerebral peduncle. Continued on Eliquis, aspirin and atorvastatin. Consider resuming home gabapentin prn? #Paroxysmal atrial fibrillation, continue metoprolol, digoxin and Eliquis. #Hx of Cor tritratum and Diastolic heart failure with grade 2 diastolic dysfunction and mild left ventricular hypertrophy (LVH). Echo done on 02/12/2020 shows mild to moderate tricuspid insufficiency, ejection fraction of 55%. ENTRESTO one tablet twice a day #asthma/FLO? cont home montelukast # Vertigo. resolved, cont meclizine prn, consider rechecking orthostatic vitals DVT ppx: freq ambulation, SCD, labs reviewed, no additional changes from previous medical management. Full code Thank you for the consult, will continue to monitor VS, I&O, 24H, Fishbone Vital Signs/I&O Vital Signs Date Time Temp Pulse Resp B/P (MAP) Pulse Ox O2 Delivery O2 Flow Rate FiO2 03/02/20 08:26 68 124/57 03/02/20 06:10 98.4 18 98 Room Air I&O- Last 24 Hours up to 6 AM 03/02/20 06:00 Intake Total 1200 ml Balance 1200 ml Laboratory Data 24H LABS Laboratory Tests 2 03/02/20 08:46: Urine Color YELLOW, Urine Appearance HAZY, Urine pH 5.0, Urine Specific [place] 1.020, Urine Protein 1+H, Urine Glucose (UA) NEGATIVE, Urine Ketones NEGATIVE, Urine Blood 2+H, Urine Nitrite POSITIVEH, Urine Bilirubin NEGATIVE, Urine Urobilinogen 2.0H, Urine Leukocyte Esterase 2+H, Urine WBC (Auto) 31H, Urine RBC (Auto) 4H, Urine Hyaline Casts (Auto) 0, Urine Bacteria (Auto) 2+H, Urine Squamous Epithelial Cells 0, Urine Amorphous Sediment SMALLH, Urine Sperm (Auto) Microbiology Microbiology 03/02/20 Urine Culture, Received Pending SATISH SUMMERS MD March 02, 2020 10:14
[2020-03-02] MEDS ORDERED: CEPHALEXIN 250MG CAPSULE PO SCH (12:00)
[2020-03-02] MEDS: CEPHALEXIN 250MG CAPSULE PO SCH ×3 (12:00→23:16)
[2020-03-02 13:38] LABS: BASO % 0.2 % (0.0-1.0); EOS # 0.2 10^3/uL (0.0-0.5); EOS % 2.8 % (0.0-3.0); HEMATOCRIT 34.3 % (36.0-47.0); HEMOGLOBIN 10.7 g/dl (12.0-15.5); LYMPH # 0.6 10^3/uL (1.5-5.0); MEAN CORPUSCULAR HGB CONC 31.2 g/dl (32.0-36.5); MEAN CORPUSCULAR VOLUME 89.8 fl (80.0-96.0); MONO # 0.4 10^3/uL (0.0-0.8); MONO % 6.5 % (0.0-5.0); NEUTROPHILS # 4.5 10^3/uL (1.5-8.5); NEUTROPHILS % 79.1 % (36.0-66.0); PLATELET COUNT, AUTOMATED 236 10^3/uL (150-450); RED BLOOD COUNT 3.82 10^6/uL (4.00-5.40); WHITE BLOOD COUNT 5.7 10^3/uL (4.0-10.0)
[2020-03-02] MEDS: LACTOBACILLUS ACIDOPHILUS CAP (BACID) PO SCH ×2 (13:56→16:23)
[2020-03-02 13:59] LABS: BLOOD UREA NITROGEN 16 MG/DL (7-18); CALCIUM LEVEL 9.3 MG/DL (8.5-10.1); CARBON DIOXIDE LEVEL 29 MEQ/L (21-32); CHLORIDE LEVEL 104 MEQ/L (98-107); CREATININE FOR GFR 0.73 MG/DL (0.55-1.30); GLOMERULAR FILTRATION RATE > 60.0 (>51); GLUCOSE, FASTING 97 MG/DL (70-100); POTASSIUM SERUM 4.2 MEQ/L (3.5-5.1); SODIUM LEVEL 139 MEQ/L (136-145)
[2020-03-02 14:00] VITALS: BP 115/69
--- NOTE | 2020-03-02 16:02 | IPNPDOC ---
PM&R Progress Note DATE OF SERVICE: March 02, 2020 Set Up Mechanic Automatic Line Progress Note Subjective: Patient reporting burning with uriantion. Tony link is eager to go home this week and agrees she will undergo another sleep study. REVIEW OF SYSTEMS: The following is a completed review of systems and has been reviewed. Review of systems otherwise unremarkable. PAIN: Patient self reports +headache (improving) EYES: +bilateral blurred vision, chronic hemianopsia EARS, NOSE, & THROAT: No throat pain, or dysphagia, or rhinorrhea CARDIOVASCULAR: Denies chest pain or palpitations PULMONARY: Denies shortness of breath GASTROINTESTINAL: Denies constipation/diarrhea GENITOURINARY: +dysuria MUSCULOSKELETAL: left sided weakness NEUROLOGICAL:left sided paresis with paresthesias HEMATOLOGICAL: denies easy bruising SKIN: no rash PSYCHIATRIC: Unremarkable All other review of systems found to be negative. PHYSICAL EXAMINATION: VITAL SIGNS: Please see below. GENERAL: Pleasant and cooperative. No acute distress. HEENT: PERRL. Extraocular movements intact. Clear conjunctiva. CARDIOVASCULAR: Regular rate and rhythm. No murmurs, rubs, or gallops LUNGS: Clear to auscultation bilaterally. No wheezes. No rhonchi ABDOMEN: Soft, nontender, nondistended. Positive bowel sounds. Normal active bowel sounds NEUROLOGICAL: Alert and oriented times three. Cranial nerves II through XII grossly intact. Sensation grossly diminished to light touch LUE +3 beats clonus on left and +babinksi on left EXTREMITIES: 5\5 strength right upper extremity, 3+/5 left elbow flexors/extensors, house mother 5\5 strength right lower extremity. 5-/5 strength in left lower extremity. SKIN: blanchable erythema sacrum ASSESSMENT:49-year-old F with past medical history of CVA who presents status post new stroke PLAN: 1. Rehab- PT/OT advance gait and ADL, strengthen/stretch/maintain ROM all 4 limbs, consider AFO for LLE, consider CIMT for LUE, ambulating short distancs with quad cane -press reader consulted today STRIPING MACHINE OPERATOR- for swallow eval, safe on thins and regular solids 2. 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 Cardiac: hx of cor triatrium s/p repair, Afib on Eliquis, c/u Digoxin, metoprolol- medicine consulted to assist in overall management -HTN- c/u sacubitril-valsartan home medication, on ASA -grade 2 diastolic dysfunction c/u fluid restriction, daily weight 4. resp: hx of FLO, c/u nocturnal 02 and refer to pulmonology for CPAP -Incentive spirometry, monitor for infection 5. Gi ppx: protonix 6. DVT ppx: on eliquis, teds 7. Pain: Tylenol prn, gabapentin 100 TID -c/u Fiorcet prn as patient report this is helping 8. Psych: patient reporting insomnia, improved with trazodone 50mg qHS, c/u 9. : +dysuria with UA suspiciot for UTI, Kelffex started, f/u Ucx 10. Dispo: 03-04-20 to home, progressing towards goals Allergies Coded Allergies: NUTS (Verified Allergy, Intermediate, Hives, 02/14/20) Olives (Verified Allergy, Intermediate, Hives, 02/14/20) Latex, Natural Rubber (Verified Allergy, Mild, Dermatitis, 02/14/20) Quinolones (Verified Allergy, Mild, HIVES, 03/02/20) clindamycin (Verified Allergy, Mild, HIVES, 03/02/20) codeine (Verified Allergy, Mild, HIVES, 03/02/20) erythromycin base (Verified Allergy, Mild, HIVES, 03/02/20) gentamicin (Verified Allergy, Mild, HIVES, 03/02/20) nitrofurantoin (Verified Allergy, Mild, HIVES, 03/02/20) sulfamethoxazole (Verified Allergy, Mild, HIVES, 03/02/20) trimethoprim (Verified Allergy, Mild, HIVES, 03/02/20) vancomycin (Verified Adverse Reaction, Severe, JJ SYNDROME, 03/02/20) levofloxacin (Verified Adverse Reaction, Mild, itching, 02/11/20) Vital Signs Vital Signs Date Time Temp Pulse Resp B/P (MAP) Pulse Ox O2 Delivery O2 Flow Rate FiO2 03/02/20 14:00 97.9 73 20 115/69 (84) 96 Room Air Laboratory Data CBC/BMP Laboratory Tests 03/02/20 13:14 Labs 24H Laboratory Tests 2 03/02/20 08:46: Urine Color YELLOW, Urine Appearance HAZY, Urine pH 5.0, Urine Specific [place] 1.020, Urine Protein 1+H, Urine Glucose (UA) NEGATIVE, Urine Ketones NEGATIVE, Urine Blood 2+H, Urine Nitrite POSITIVEH, Urine Bilirubin NEGATIVE, Urine Urobilinogen 2.0H, Urine Leukocyte Esterase 2+H, Urine WBC (Auto) 31H, Urine RBC (Auto) 4H, Urine Hyaline Casts (Auto) 0, Urine Bacteria (Auto) 2+H, Urine Squamous Epithelial Cells 0, Urine Amorphous Sediment SMALLH, Urine Sperm (Auto) 03/02/20 13:14: Immature Granulocyte % (Auto) 0.4, Neutrophils (%) (Auto) 79.1H, Lymphocytes (%) (Auto) 11.0L, Monocytes (%) (Auto) 6.5H, Eosinophils (%) (Auto) 2.8, Basophils (%) (Auto) 0.2, Neutrophils # (Auto) 4.5, Lymphocytes # (Auto) 0.6L, Monocytes # (Auto) 0.4, Eosinophils # (Auto) 0.2, Basophils # (Auto) 0.0, Nucleated Red Blood Cells % (auto) 0.0, Anion Gap 6L, Glomerular Filtration Rate > 60.0, Calcium Level 9.3 Microbiology Microbiology 03/02/20 Urine Culture, Received Pending Current Medications Current Medications Current Medications Medications (Trade) Dose Ordered Sig/Edie Route PRN Reason Start Time Stop Time Status Last Admin Dose Admin Acetaminophen (Tylenol Tab) 650 mg Q4HP PRN PO fever/MILD PAIN (PS 1-4) 02/14/20 14:15 03/01/20 17:31 Acetaminophen/ Butalbital/ Caffeine (Fioricet) 1 ea Q4HP PRN PO HEADACHE 02/20/20 15:30 02/22/20 11:59 Apixaban (Eliquis) 5 mg BID PO 02/14/20 21:00 03/02/20 08:26 Aspirin (Ecotrin) 81 mg DAILY PO 02/15/20 09:00 03/02/20 08:25 Atorvastatin Calcium (Lipitor) 40 mg DAILY PO 02/15/20 09:00 03/02/20 08:26 Bisacodyl (Dulcolax Suppository) 10 mg DAILYPRN PRN [place] CONSTIPATION 02/14/20 14:15 Cephalexin Monohydrate (Keflex) 250 mg Q6H PO 03/02/20 12:00 03/02/20 12:45 DC Cephalexin Monohydrate (Keflex) 250 mg Q6H PO 03/02/20 12:00 03/05/20 06:01 Digoxin (Lanoxin) 0.25 mg DAILY PO 02/15/20 09:00 03/02/20 08:25 Docusate Sodium (Colace) 100 mg BID PO 02/14/20 21:00 03/02/20 08:25 Fluoxetine HCl (PROzac) 20 mg DAILY PO 02/14/20 09:00 03/02/20 08:25 Gabapentin (Neurontin) 100 mg TID PO 02/14/20 16:00 03/02/20 15:11 Home Med (Med Rec Complete!) ASDIRECTED XX 02/14/20 13:45 02/14/20 13:42 DC Lactobacillus Acidophilus (Bacid) 1 ea WM PO 03/02/20 12:30 03/02/20 13:56 Meclizine HCl (Antivert) 25 mg Q4HP PRN PO DIZZINESS 02/24/20 13:00 Metoprolol Succinate (TopROL XL) 50 mg DAILY PO 02/15/20 09:00 03/02/20 08:26 Montelukast Sodium (Singulair) 10 mg QHS PO 02/14/20 21:00 03/01/20 21:32 Nitrofurantoin Monoh/Nitrofur Macro (Macrobid) 100 mg BID PO 03/02/20 09:00 03/02/20 14:08 DC Pantoprazole Sodium (Protonix) 40 mg DAILY PO 02/14/20 09:00 03/02/20 08:26 Sacubitril/ Valsartan (Entresto 49-51 Mg) 1 tab BID PO 02/14/20 21:00 03/02/20 08:25 Senna (Senokot) 1 tab QHS PO 02/14/20 21:00 02/21/20 21:51 Trazodone HCl (Desyrel) 25 mg ASDIRECTED PRN PO insomnia 02/18/20 01:00 02/18/20 04:00 DC Trazodone HCl (Desyrel) 25 mg QHS PO 02/17/20 21:00 02/17/20 13:35 DC Trazodone HCl (Desyrel) 50 mg QHS PO 02/17/20 21:00 03/01/20 21:32 JOELLEN CORDON MD March 02, 2020 16:02
[2020-03-02 20:57] VITALS: BP 125/64
[2020-03-02] MEDS: traZODone 50 MG TAB PO SCH (20:57)
[2020-03-02] MEDS: MONTELUKAST 10 MG TAB PO SCH (20:57)
[2020-03-02] MEDS: SENNA 8.6 MG TAB (SENOKOT) PO SCH (20:57)
[2020-03-03] MEDS: CEPHALEXIN 250MG CAPSULE PO SCH ×4 (05:56→23:07)
[2020-03-03] MEDS: APIXABAN 5 MG TAB (ELIQUIS) PO SCH ×2 (08:32→20:59)
[2020-03-03] MEDS: DOCUSATE SODIUM 100 MG CAP PO SCH ×2 (08:32→21:00)
[2020-03-03] MEDS: ASPIRIN 81 MG ENTERIC TAB PO SCH (08:32)
[2020-03-03] MEDS: PANTOPRAZOLE 40MG TAB (PROTONIX) PO SCH (08:32)
[2020-03-03] MEDS: FLUoxetine 20 MG CAP PO SCH (08:32)
[2020-03-03] MEDS: LACTOBACILLUS ACIDOPHILUS CAP (BACID) PO SCH ×3 (08:32→17:00)
[2020-03-03] MEDS: ENTRESTO 49-51MG TABLET (SACUBITRIL/VALSARTAN) PO SCH ×2 (08:32→20:59)
[2020-03-03] MEDS: ATORVASTATIN 20 MG TAB PO SCH (08:32)
[2020-03-03] MEDS: GABAPENTIN 100 MG CAP PO SCH ×3 (08:33→20:59)
[2020-03-03] MEDS: ACETAMINOPHEN TAB 650MG DOSE (2X325MG) PO PRN (08:33)
[2020-03-03] MEDS: METOPROLOL SUCC (TopROL XL) 50MG **XL** TAB PO SCH (08:33)
[2020-03-03] MEDS: DIGOXIN 0.25 MG TAB PO SCH (08:33)
[2020-03-03 14:00] VITALS: BP 103/58
[2020-03-03 20:00] VITALS: BP 127/61
[2020-03-03] MEDS: MONTELUKAST 10 MG TAB PO SCH (20:59)
[2020-03-03] MEDS: traZODone 50 MG TAB PO SCH (20:59)
[2020-03-03] MEDS: SENNA 8.6 MG TAB (SENOKOT) PO SCH (21:00)
[2020-03-04] MEDS: CEPHALEXIN 250MG CAPSULE PO SCH (05:38)
[2020-03-04 05:41] VITALS: BP 108/56
[2020-03-04] MEDS: GABAPENTIN 100 MG CAP PO SCH ×2 (08:53→15:16)
[2020-03-04] MEDS: ATORVASTATIN 20 MG TAB PO SCH (08:53)
[2020-03-04] MEDS: APIXABAN 5 MG TAB (ELIQUIS) PO SCH (08:53)
[2020-03-04] MEDS: ASPIRIN 81 MG ENTERIC TAB PO SCH (08:53)
[2020-03-04] MEDS: FLUoxetine 20 MG CAP PO SCH (08:53)
[2020-03-04] MEDS: LACTOBACILLUS ACIDOPHILUS CAP (BACID) PO SCH ×2 (08:53→12:47)
[2020-03-04] MEDS: PANTOPRAZOLE 40MG TAB (PROTONIX) PO SCH (08:53)
[2020-03-04] MEDS: DIGOXIN 0.25 MG TAB PO SCH (08:55)
[2020-03-04] MEDS: ENTRESTO 49-51MG TABLET (SACUBITRIL/VALSARTAN) PO SCH (08:55)
[2020-03-04 08:56] VITALS: BP 113/61
[2020-03-04] MEDS: METOPROLOL SUCC (TopROL XL) 50MG **XL** TAB PO SCH (08:56)
[2020-03-04] MEDS: DOCUSATE SODIUM 100 MG CAP PO SCH (08:56)
[2020-03-04] MEDS ORDERED: FLUO20CA22 PO (10:33)
[2020-03-04] MEDS ORDERED: RISATAB3 PO (10:33)
[2020-03-04] MEDS ORDERED: KEFL250C11 PO (10:33)
[2020-03-04] MEDS ORDERED: ASPI81TAEC PO (10:33)
[2020-03-04] MEDS ORDERED: CEFDINIR 300 MG CAP (OMNICEF) PO SCH (13:00)
[2020-03-04 14:00] VITALS: BP 113/61
--- NOTE | 2020-03-04 15:08 | IPNPDOC ---
PM&R Progress Note DATE OF SERVICE: March 03, 2020 Granite Sandblaster Apprentice Progress Note Subjective: Patient reporting she feels well today her urinary symptoms are better and she is ready to go home tomorrow. REVIEW OF SYSTEMS: The following is a completed review of systems and has been reviewed. Review of systems otherwise unremarkable. PAIN: Patient self reports +headache (improving) EYES: +bilateral blurred vision, chronic hemianopsia EARS, NOSE, & THROAT: No throat pain, or dysphagia, or rhinorrhea CARDIOVASCULAR: Denies chest pain or palpitations PULMONARY: Denies shortness of breath GASTROINTESTINAL: Denies constipation/diarrhea GENITOURINARY: +dysuria MUSCULOSKELETAL: left sided weakness NEUROLOGICAL:left sided paresis with paresthesias HEMATOLOGICAL: denies easy bruising SKIN: no rash PSYCHIATRIC: Unremarkable All other review of systems found to be negative. PHYSICAL EXAMINATION: VITAL SIGNS: Please see below. GENERAL: Pleasant and cooperative. No acute distress. HEENT: PERRL. Extraocular movements intact. Clear conjunctiva. CARDIOVASCULAR: Regular rate and rhythm. No murmurs, rubs, or gallops LUNGS: Clear to auscultation bilaterally. No wheezes. No rhonchi ABDOMEN: Soft, nontender, nondistended. Positive bowel sounds. Normal active bowel sounds NEUROLOGICAL: Alert and oriented times three. Cranial nerves II through XII grossly intact. Sensation grossly diminished to light touch LUE +3 beats clonus on left and +babinksi on left EXTREMITIES: 5\5 strength right upper extremity, 3+/5 left elbow flexors/extensors, fish culturist 5\5 strength right lower extremity. 5-/5 strength in left lower extremity. SKIN: blanchable erythema sacrum ASSESSMENT:49-year-old F with past medical history of CVA who presents status post new stroke PLAN: 1. Rehab- PT/OT advance gait and ADL, strengthen/stretch/maintain ROM all 4 limbs, consider AFO for LLE, consider CIMT for LUE, ambulating short distancs with quad cane -business administration teacher consulted today FIRE SPRINKLER APPARATUS INSPECTOR- for swallow eval, safe on thins and regular solids 2. 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 Cardiac: hx of cor triatrium s/p repair, Afib on Eliquis, c/u Digoxin, metoprolol- medicine consulted to assist in overall management -HTN- c/u sacubitril-valsartan home medication, on ASA -grade 2 diastolic dysfunction c/u fluid restriction, daily weight 4. resp: hx of FLO, c/u nocturnal 02 and refer to pulmonology for CPAP -Incentive spirometry, monitor for infection 5. Gi ppx: protonix 6. DVT ppx: on eliquis, teds 7. Pain: Tylenol prn, gabapentin 100 TID -c/u Fiorcet prn as patient report this is helping 8. Psych: patient reporting insomnia, improved with trazodone 50mg qHS, c/u 9. : +dysuria with UA suspicious for UTI, Keflex started, f/u Ucx 10. Dispo: 03-04-20 to home, progressing towards goals Allergies Coded Allergies: NUTS (Verified Allergy, Intermediate, Hives, 02/14/20) Olives (Verified Allergy, Intermediate, Hives, 02/14/20) Latex, Natural Rubber (Verified Allergy, Mild, Dermatitis, 02/14/20) Quinolones (Verified Allergy, Mild, HIVES, 03/02/20) clindamycin (Verified Allergy, Mild, HIVES, 03/02/20) codeine (Verified Allergy, Mild, HIVES, 03/02/20) erythromycin base (Verified Allergy, Mild, HIVES, 03/02/20) gentamicin (Verified Allergy, Mild, HIVES, 03/02/20) nitrofurantoin (Verified Allergy, Mild, HIVES, 03/02/20) sulfamethoxazole (Verified Allergy, Mild, HIVES, 03/02/20) trimethoprim (Verified Allergy, Mild, HIVES, 03/02/20) vancomycin (Verified Adverse Reaction, Severe, JJ SYNDROME, 03/02/20) levofloxacin (Verified Adverse Reaction, Mild, itching, 02/11/20) Vital Signs Vital Signs Date Time Temp Pulse Resp B/P (MAP) Pulse Ox O2 Delivery O2 Flow Rate FiO2 03/04/20 14:00 98.0 64 18 113/61 (78) 97 Room Air Microbiology Microbiology 03/02/20 Urine Culture - Final, Complete Escherichia Coli Current Medications Current Medications Current Medications Medications (Trade) Dose Ordered Sig/Edie Route PRN Reason Start Time Stop Time Status Last Admin Dose Admin Acetaminophen (Tylenol Tab) 650 mg Q4HP PRN PO fever/MILD PAIN (PS 1-4) 02/14/20 14:15 03/03/20 08:33 Acetaminophen/ Butalbital/ Caffeine (Fioricet) 1 ea Q4HP PRN PO HEADACHE 02/20/20 15:30 02/22/20 11:59 Apixaban (Eliquis) 5 mg BID PO 02/14/20 21:00 03/04/20 08:53 Aspirin (Ecotrin) 81 mg DAILY PO 02/15/20 09:00 03/04/20 08:53 Atorvastatin Calcium (Lipitor) 40 mg DAILY PO 02/15/20 09:00 03/04/20 08:53 Bisacodyl (Dulcolax Suppository) 10 mg DAILYPRN PRN [place] CONSTIPATION 02/14/20 14:15 Cefdinir (Omnicef) 300 mg BID PO 03/04/20 13:00 03/09/20 12:59 Cephalexin Monohydrate (Keflex) 250 mg Q6H PO 03/02/20 12:00 03/02/20 12:45 DC Cephalexin Monohydrate (Keflex) 250 mg Q6H PO 03/02/20 12:00 03/04/20 11:55 DC 03/04/20 05:38 Digoxin (Lanoxin) 0.25 mg DAILY PO 02/15/20 09:00 03/04/20 08:55 Docusate Sodium (Colace) 100 mg BID PO 02/14/20 21:00 03/03/20 08:32 Fluoxetine HCl (PROzac) 20 mg DAILY PO 02/14/20 09:00 03/04/20 08:53 Gabapentin (Neurontin) 100 mg TID PO 02/14/20 16:00 03/04/20 08:53 Home Med (Med Rec Complete!) ASDIRECTED XX 02/14/20 13:45 02/14/20 13:42 DC Lactobacillus Acidophilus (Bacid) 1 ea WM PO 03/02/20 12:30 03/04/20 12:47 Meclizine HCl (Antivert) 25 mg Q4HP PRN PO DIZZINESS 02/24/20 13:00 Metoprolol Succinate (TopROL XL) 50 mg DAILY PO 02/15/20 09:00 03/04/20 08:56 Miscellaneous (Unresolved Clarification Entry) SEE LABEL COMMENTS DAILY XX 03/03/20 09:00 03/03/20 11:10 DC Montelukast Sodium (Singulair) 10 mg QHS PO 02/14/20 21:00 03/03/20 20:59 Nitrofurantoin Monoh/Nitrofur Macro (Macrobid) 100 mg BID PO 03/02/20 09:00 03/02/20 14:08 DC Pantoprazole Sodium (Protonix) 40 mg DAILY PO 02/14/20 09:00 03/04/20 08:53 Sacubitril/ Valsartan (Entresto 49-51 Mg) 1 tab BID PO 02/14/20 21:00 03/04/20 08:55 Senna (Senokot) 1 tab QHS PO 02/14/20 21:00 03/02/20 20:57 Trazodone HCl (Desyrel) 25 mg ASDIRECTED PRN PO insomnia 02/18/20 01:00 02/18/20 04:00 DC Trazodone HCl (Desyrel) 25 mg QHS PO 02/17/20 21:00 02/17/20 13:35 DC Trazodone HCl (Desyrel) 50 mg QHS PO 02/17/20 21:00 03/03/20 20:59 JOELLEN CORDON MD March 04, 2020 15:08
== END 2020-03-04 16:15 | disposition home health service (06) | DRG 57 ==
LOC: M PM&R 13:25
PROVIDERS: ADMIT Physical Medicine & Rehabilitation; ATTEND Physical Medicine & Rehabilitation
DX: I69.354 Hemiplegia and hemiparesis following cerebral infarction affecting left non-dominant side (principal); I50.32 Chronic diastolic (congestive) heart failure; Z68.42 Body mass index [BMI] 45.0-49.9, adult; N39.0 Urinary tract infection, site not specified; I11.0 Hypertensive heart disease with heart failure; H53.47 Heteronymous bilateral field defects; I69.398 Other sequelae of cerebral infarction; H53.8 Other visual disturbances; G47.33 Obstructive sleep apnea (adult) (pediatric); R51 Headache; E66.01 Morbid (severe) obesity due to excess calories; I48.0 Paroxysmal atrial fibrillation; Z79.01 Long term (current) use of anticoagulants; Z79.899 Other long term (current) drug therapy; Z79.82 Long term (current) use of aspirin; Z91.040 Latex allergy status; Z88.5 Allergy status to narcotic agent; Z91.018 Allergy to other foods; Z88.2 Allergy status to sulfonamides; Z88.8 Allergy status to other drugs, medicaments and biological substances; Z87.891 Personal history of nicotine dependence; Z87.74 Personal history of (corrected) congenital malformations of heart and circulatory system; Z98.84 Bariatric surgery status; Z90.49 Acquired absence of other specified parts of digestive tract; Z88.1 Allergy status to other antibiotic agents; B96.20 Unspecified Escherichia coli [E. coli] as the cause of diseases classified elsewhere

== ENCOUNTER → 2020-04-27 | Outpatient (REF) | payer OTHER ==
[~2020-04-27] MED LIST changes: +ASPI-1 PO; +ASPI1TAB22 PO; +ASPI81CH33 PO; +ATOR40TA75; +ATOR40TA75 PO; +B-12100T2 PO; +CETI10TA4 PO; +ELIQ2.5T; +ENTR1TAB; +FERR325T18 PO; +FLUO20CA22 PO; +FOLI1TAB11 PO; +KEFL250C11 PO; +LEXA5TAB13 PO; +LISI10TA4; +LISI2.5T2 PO; +PLAV1TAB2 PO; +RISATAB3 PO; +VITA100T14 PO; +VITA200015 PO
[2020-04-27 17:49] LABS: PERCENT SATURATION 10.1 % (13.2-45.0)
== END ==
LOC: M LAB REF 16:39
PROVIDERS: ATTEND Internal Medicine
DX: D50.9 Iron deficiency anemia, unspecified (principal)

== ENCOUNTER → 2020-07-14 | Outpatient (CLI) | payer OTHER ==
[~2020-07-14] MED LIST changes: +ISOVUE-370 76% 100ML VIAL As Ordered ONE
--- NOTE | 2020-07-14 17:03 | REPVR ---
PROCEDURE INFORMATION: Exam: CT Angiography Chest With Contrast Exam date and time: 07/14/2020 4:28 PM Age: 50 years old Clinical indication: Shortness of breath; Additional info: SOB, left leg swelling/ pain xr1/ct2/us3 TECHNIQUE: Imaging protocol: Computed tomographic angiography of the chest with intravenous contrast. 3D rendering (Not supervised by radiologist): MIP and/or 3D reconstructed images were created by the technologist. Radiation optimization: All CT scans at this facility use at least one of these dose optimization techniques: automated exposure control; mA and/or kV adjustment per patient size (includes targeted exams where dose is matched to clinical indication); or iterative reconstruction. Contrast material: ISOVUE 370; Contrast volume: 100 ml; Contrast route: INTRAVENOUS (IV); COMPARISON: CT ANGIO CHEST 07/11/2014 5:10 PM FINDINGS: Pulmonary arteries: There is opacification of the pulmonary arteries with no evidence of pulmonary embolus. Aorta: There is opacification of the aorta which appears intact. Lungs: There is a patchy area of atelectasis or infiltrate right lung base lateral in position. Pleural space: There is no evidence of pneumothorax or pleural effusion. Heart: There is moderate cardiomegaly. Lymph nodes: Unremarkable. No enlarged lymph nodes. Liver: There is moderate fatty infiltration of the liver. Bones/joints: Unremarkable. No acute fracture. Soft tissues: Unremarkable. IMPRESSION: 1. There is moderate cardiomegaly 2. There is no evidence of pulmonary embolus. Electronically signed by: Jose Morales On 07/14/2020 17:02:40 PM
--- NOTE | 2020-07-14 17:06 | REPVR ---
PROCEDURE INFORMATION: Exam: US Duplex Left Lower Extremity Veins, Limited Exam date and time: 07/14/2020 4:59 PM Age: 50 years old Clinical indication: Pain; Leg, lower; Left; Additional info: SOB, left leg swelling/ pain xr1/ct2/us3 TECHNIQUE: Imaging protocol: Real-time Duplex ultrasound of the Left Lower Extremity with 2-D denise scale, color Doppler flow and spectral waveform analysis with image documentation. Limited exam focused on the left lower extremity veins. COMPARISON: No relevant prior studies available. FINDINGS: Left deep veins: Unremarkable. The common femoral, femoral, proximal profunda femoral and popliteal veins are patent without thrombus. Normal Doppler waveforms. Normal compressibility and/or augmentation response. Left superficial veins: Unremarkable. Saphenofemoral junction is patent without thrombus. Soft tissues: Unremarkable. IMPRESSION: No evidence of deep vein thrombosis. Electronically signed by: Jose Morales On 07/14/2020 17:05:55 PM
--- NOTE | 2020-07-23 14:22 | REP ---
TWO-VIEW CHEST HISTORY: Shortness of breath, left leg swelling and pain. TECHNIQUE: Two views of the chest are performed. COMPARISON: 11/24/2019 and 02/02/2016. FINDINGS: There is [id number] cardiomegaly. The mediastinal silhouette is unchanged. No acute infiltrate or pulmonary edema is seen. There is mild elevation of the right hemidiaphragm. IMPRESSION: Cardiomegaly as seen on prior studies. No acute infiltrate or pulmonary edema. MTDD
== END ==
LOC: M RAD 15:53
PROVIDERS: ATTEND Internal Medicine
DX: R06.02 Shortness of breath (principal); R22.42 Localized swelling, mass and lump, left lower limb; M79.605 Pain in left leg; I51.7 Cardiomegaly
CPT/HCPCS: 71046; 71275; 85652; 93971; Q9967

== ENCOUNTER 2020-08-24 21:54 | Inpatient (IN) | payer OTHER ==
[~2020-08-24] VITALS: Ht 157.5 cm; Wt 111.3 kg
[~2020-08-24 21:54] MED LIST changes: -ASPI-1 PO; -ASPI1TAB22 PO; -ASPI81CH33 PO; -ATOR40TA75; -ATOR40TA75 PO; -B-12100T2 PO; -CETI10TA4 PO; -ELIQ2.5T; -ENTR1TAB; -FERR325T18 PO; -FOLI1TAB11 PO; -ISOVUE-370 76% 100ML VIAL As Ordered ONE; -LEXA5TAB13 PO; -LISI10TA4; -LISI2.5T2 PO; -PLAV1TAB2 PO; -VITA100T14 PO; -VITA200015 PO
[2020-08-24] MEDS ORDERED: ATOR40TA75 (22:10)
[2020-08-24] MEDS ORDERED: LISI10TA4 (22:10)
[2020-08-24] MEDS ORDERED: ELIQ2.5T (22:10)
[2020-08-24] MEDS ORDERED: ASPI-1 PO (22:11)
[2020-08-24] MEDS ORDERED: ENTR1TAB (22:13)
[2020-08-24 22:25] LABS: BASO % 0.3 % (0.0-1.0); EOS # 0.2 10^3/uL (0.0-0.5); EOS % 2.6 % (0.0-3.0); HEMATOCRIT 32.5 % (36.0-47.0); HEMOGLOBIN 9.8 g/dl (12.0-15.5); LYMPH # 1.1 10^3/uL (1.5-5.0); MEAN CORPUSCULAR HEMOGLOBIN 28.5 pg (27.0-33.0); MEAN CORPUSCULAR HGB CONC 30.2 g/dl (32.0-36.5); MEAN CORPUSCULAR VOLUME 94.5 fl (80.0-96.0); MONO # 0.3 10^3/uL (0.0-0.8); MONO % 4.8 % (0.0-5.0); NEUTROPHILS % 74.7 % (36.0-66.0); PLATELET COUNT, AUTOMATED 216 10^3/uL (150-450); RED BLOOD COUNT 3.44 10^6/uL (4.00-5.40); WHITE BLOOD COUNT 6.6 10^3/uL (4.0-10.0)
--- NOTE | 2020-08-24 22:32 | REPVR ---
PROCEDURE INFORMATION: Exam: XR Chest, 1 View Exam date and time: 08/24/2020 10:27 PM Age: 50 years old Clinical indication: Other: ? CVA TECHNIQUE: Imaging protocol: XR of the chest Views: 1 view. COMPARISON: CT ANGIO CHEST 07/14/2020 4:32 PM FINDINGS: Lungs: Unremarkable. No consolidation. Pleural space: Unremarkable. No pleural effusion. No pneumothorax. Heart/Mediastinum: Mild cardiomegaly. Bones/joints: Unremarkable. IMPRESSION: 1. Mild cardiomegaly. 2. No acute findings Electronically signed by: James Kowalski On 08/24/2020 22:32:36 PM
--- NOTE | 2020-08-24 22:32 | REPVR ---
PROCEDURE INFORMATION: Exam: CT Head Without Contrast Exam date and time: 08/24/2020 10:22 PM Age: 50 years old Clinical indication: Weakness, extremity; Additional info: CVA - nursing interventions must not delay CT TECHNIQUE: Imaging protocol: Computed tomography of the head without contrast. Radiation optimization: All CT scans at this facility use at least one of these dose optimization techniques: automated exposure control; mA and/or kV adjustment per patient size (includes targeted exams where dose is matched to clinical indication); or iterative reconstruction. Other technique: STROKE PROTOCOL was implemented. COMPARISON: CT Head without contrast 02/11/2020 10:22 AM FINDINGS: Brain: Old infarcts with encephalomalacia in the left occipital lobe and right frontal lobe. Suspected new cortical infarct in the right frontal operculum. No intracranial hemorrhage. Cerebral ventricles: No ventriculomegaly. Bones/joints: Unremarkable. No acute fracture. Paranasal sinuses: Visualized sinuses are unremarkable. No fluid levels. Mastoid air cells: Visualized mastoid air cells are well aerated. Soft tissues: Unremarkable. IMPRESSION: 1. Probable small acute infarct in the right frontal operculum. 2. Old right frontal and left occipital lobe infarcts. ASSESSMENT: ASPECTS ([facility] Stroke Program Early CT Score) is 9. Electronically signed by: James Kowalski On 08/24/2020 22:31:48 PM
[2020-08-24 22:35] LABS: INR 1.07; PROTHROMBIN TIME 14.1 SECONDS (12.5-14.3)
[2020-08-24 22:36] LABS: PARTIAL THROMBOPLASTIN TIME 30.5 SECONDS (24.2-38.5)
[2020-08-24] MEDS ORDERED: ACETAMINOPHEN TAB 650MG DOSE (2X325MG) PO ONE (23:00)
[2020-08-24 23:02] LABS: BLOOD UREA NITROGEN 14 MG/DL (7-18); CALCIUM LEVEL 8.4 MG/DL (8.5-10.1); CARBON DIOXIDE LEVEL 27 MEQ/L (21-32); CHLORIDE LEVEL 107 MEQ/L (98-107); CK-MB VALUE MASS < 1.0 NG/ML (<3.6); CPK CREATINE PHOSPHOKINASE 31 U/L (26-192); DIGOXIN LEVEL 0.8 NG/ML (0.5-2.0); GLOMERULAR FILTRATION RATE > 60.0 (>51); GLUCOSE, FASTING 99 MG/DL (70-100); MB/CK RELATIVE INDEX 3.23 (< OR =4); POTASSIUM SERUM 3.6 MEQ/L (3.5-5.1); SODIUM LEVEL 141 MEQ/L (136-145); TROPONIN I < 0.02 NG/ML (< 0.10)
[2020-08-24] MEDS ORDERED: ISOVUE-370 76% 100ML VIAL As Ordered ONE (23:39)
[2020-08-24] MEDS ORDERED: NS 1,000 ML IV SCH (23:45)
[2020-08-24] MEDS ORDERED: ELIQ5TAB PO (23:51)
[2020-08-24] MEDS ORDERED: VITA100T14 PO (23:51)
[2020-08-24] MEDS ORDERED: VITA200015 PO (23:51)
[2020-08-24] MEDS ORDERED: CETI10TA4 PO (23:51)
[2020-08-24] MEDS ORDERED: ASPI1TAB22 PO (23:51)
[2020-08-24] MEDS ORDERED: B-12100T2 PO (23:51)
[2020-08-24] MEDS ORDERED: ATOR40TA75 PO (23:51)
[2020-08-24] MEDS ORDERED: FOLI1TAB11 PO (23:51)
[2020-08-25] VITALS (8 sets, daily range): BP systolic 126–159; BP diastolic 63–83
[2020-08-25 00:12] LABS: C REACTIVE PROTEIN QUANTITATIV 2.31 MG/DL (0.00-0.30); CHOLESTEROL LEVEL 116 MG/DL (<200); CHOLESTEROL RISK RATIO 2.829 (<5); HDL CHOLESTEROL 41 MG/DL (>40); LDL CHOLESTEROL 59 MG/DL (<100); NON-HDL-C 75 MG/DL; TRIGLYCERIDES LEVEL 79 MG/DL (<150)
[2020-08-25 00:13] LABS: ERYTHROCYTE SEDIMENTATION RATE 65 mm/hr (0-30)
[2020-08-25 00:14] LABS: HEMOGLOBIN A1c 5.7 %
--- NOTE | 2020-08-25 00:14 | REPVR ---
PROCEDURE INFORMATION: Exam: CT Angiography Head With Contrast Exam date and time: 08/24/2020 11:49 PM Age: 50 years old Clinical indication: Condition or disease and abnormal findings; Abnormal CT of the head; Infarction; Additional info: CVA TECHNIQUE: Imaging protocol: Computed tomography angiography of the head with intravenous contrast. 3D rendering (Not supervised by radiologist): MIP and/or 3D reconstructed images were created by the technologist. Radiation optimization: All CT scans at this facility use at least one of these dose optimization techniques: automated exposure control; mA and/or kV adjustment per patient size (includes targeted exams where dose is matched to clinical indication); or iterative reconstruction. Contrast material: ISOVUE 370; Contrast volume: 100 ml; Contrast route: INTRAVENOUS (IV); COMPARISON: CT Head without contrast 08/24/2020 10:08 PM FINDINGS: ANTERIOR CIRCULATION: Right internal carotid artery: Unremarkable. Intracranial segment is patent with no significant stenosis. No aneurysm. Right middle cerebral artery: Unremarkable. No occlusion or significant stenosis. No aneurysm. Right anterior cerebral artery: Unremarkable. No occlusion or significant stenosis. No aneurysm. Left internal carotid artery: Unremarkable. Intracranial segment is patent with no significant stenosis. No aneurysm. Left middle cerebral artery: Unremarkable. No occlusion or significant stenosis. No aneurysm. Left anterior cerebral artery: Unremarkable. No occlusion or significant stenosis. No aneurysm. POSTERIOR CIRCULATION: Right vertebral artery: Unremarkable. No occlusion or significant stenosis. No aneurysm. Left vertebral artery: Unremarkable. No occlusion or significant stenosis. No aneurysm. Basilar artery: Unremarkable. No occlusion or significant stenosis. No aneurysm. Right posterior cerebral artery: There is a severe short segment stenosis of the origin of the right SENIOR LOSS CONTROL SPECIALIST. Distal right SENIOR LOSS CONTROL SPECIALIST is patent. Left posterior cerebral artery: Unremarkable. No occlusion or significant stenosis. No aneurysm. Brain: No definite mass, mass effect, or midline shift. Cerebral ventricles: Normal. No ventriculomegaly. Bones/joints: Unremarkable. No acute fracture. Soft tissues: Unremarkable. IMPRESSION: 1. Severe stenosis of the origin of the right SENIOR LOSS CONTROL SPECIALIST. 2. No other significant stenosis or large vessel occlusion Electronically signed by: James Kowalski On 08/25/2020 00:13:56 AM
--- NOTE | 2020-08-25 00:16 | REPVR ---
PROCEDURE INFORMATION: Exam: CT Angiography Neck With Contrast Exam date and time: 08/24/2020 11:49 PM Age: 50 years old Clinical indication: Abnormal findings; Abnormal CT of the head; Additional info: CVA TECHNIQUE: Imaging protocol: Computed tomography angiography of the neck with intravenous contrast. 3D rendering (Not supervised by radiologist): MIP and/or 3D reconstructed images were created by the technologist. Radiation optimization: All CT scans at this facility use at least one of these dose optimization techniques: automated exposure control; mA and/or kV adjustment per patient size (includes targeted exams where dose is matched to clinical indication); or iterative reconstruction. Contrast material: ISOVUE 370; Contrast volume: 100 ml; Contrast route: INTRAVENOUS (IV); COMPARISON: No relevant prior studies available. FINDINGS: Right common carotid artery: No stenosis. No dissection or occlusion. Right internal carotid artery: No stenosis of the extracranial segment. No dissection or occlusion. Right external carotid artery: No occlusion or stenosis of the origin. Right vertebral artery: No stenosis. No dissection or occlusion. Left common carotid artery: No stenosis. No dissection or occlusion. Left internal carotid artery: No stenosis of the extracranial segment. No dissection or occlusion. Left external carotid artery: No occlusion or stenosis of the origin. Left vertebral artery: No stenosis. No dissection or occlusion. Bones/joints: Advanced degenerative spondylosis in the cervical spine. Soft tissues: Normal. No significant soft tissue swelling. IMPRESSION: Unremarkable CTA. No significant stenosis, aneurysm, or vascular occlusion. REFERENCES: NASCET CRITERIA. The degree of internal carotid artery stenosis is based on NASCET criteria. Normal is no stenosis. Mild is less than 50% stenosis. Moderate is 50-69% stenosis. Severe is 70% to 99% stenosis. Total occlusion is no detectable patent lumen. Electronically signed by: James Kowalski On 08/25/2020 00:16:21 AM
--- NOTE | 2020-08-25 00:31 | HPEPDOC ---
[facility] Medical History & Physical Date of Admission Aug 24, 2020 Date of Service: Aug 24, 2020 Attending Physician: DEX CHASE MD History and Physical TIME OF SERVICE: 1158pm CHIEF COMPLAINT: impaired vision HISTORY OF PRESENT ILLNESS: On Monday evening this 52 yr old F noticed that she was seeing black spots; this lasted for about 1 min. There after she developed worsening left sided paresthesias that are more noticeable than her baseline which she describes as feeling like her skin was tight. She thought her migraines may be acting up so she decided to spend the rest of the day resting. Her PCP had advised her to come to the hospital but she didn't. Today when she woke up the symptoms r eoccurred, and she felt "wrong". She waited until the evening for her boyfriend to come home and bring her to the hospital. She denied LOC, falling, dropping objects, or having palpitations and her vision deficits are are at their baseline. 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 HOME MEDICATIONS: Please see below. PHYSICAL EXAMINATION: Vital Signs Date Time Temp Pulse Resp B/P (MAP) Pulse Ox O2 Delivery O2 Flow Rate FiO2 08/24/20 21:55 99.3 76 18 148/70 (96) 100 Room Air GEN: well-nourished / well developed/ NAD INTEGUMENT: not flushed/ not jaundice / no rashes / no skin lesions HEENT: lips acyanotic /mucus membranes moist and pink / sclera anicteric/ abdominojugular reflux CVS: RRR/NMRG / radial pulses intact / no lower extremity edema LUNGS: able to speak full sentences without stopping to take a breath / no coughing / lungs are clear to auscultation bilaterally on room air ABDOMEN: Contour (flat) / soft & not tender with palpation MSK/EXTREMITIES: NCAT / range of motion intact in all 4 extremities NEURO: CN 2-12 are grossly intact / speech is not dysarthric / strength is 5/5 / no nystagmus / left finger to nose dysmetria / reduced sensation at left face, left upper arm and left upper leg PSYCH: alert and oriented to person place and time/ able to understand and follow all commands LABORATORY DATA: 08/24/20 22:10 08/25/20 04:39 08/24/20 22:10: Immature Granulocyte % (Auto) 0.6, Neutrophils (%) (Auto) 74.7H, Lymphocytes (%) (Auto) 17.0L, Monocytes (%) (Auto) 4.8, Eosinophils (%) (Auto) 2.6, Basophils (%) (Auto) 0.3, Neutrophils # (Auto) 5.0, Lymphocytes # (Auto) 1.1L, Monocytes # (Auto) 0.3, Eosinophils # (Auto) 0.2, Basophils # (Auto) 0.0, Nucleated Red Blood Cells % (auto) 0.0, Erythrocyte Sedimentation Rate 65H, Prothrombin Time 14.1H, Prothromb Time International Ratio 1.07, Activated Partial Thromboplast Time 30.5, Anion Gap 7L, Glomerular Filtration Rate > 60.0, Estimated Mean Plasma Glucose 117H, Hemoglobin A1c 5.7, Calcium Level 8.4L, Total Creatine Kinase 31, Creatine Kinase MB < 1.0, Creatine Kinase MB Relative Index 3.23, Troponin I < 0.02, C-Reactive Protein, Quantitative 2.31H, Triglycerides Level 79, Total Cholesterol 116, LDL Cholesterol 59, Non-HDL Cholesterol (LDL + VLDL) 75, Total HDL Cholesterol 41, Cholesterol/HDL Ratio 2.829, Thyroid Stimulating Hormone (TSH) 1.390, Digoxin Level 0.8 IMAGING: Chest xray "IMPRESSION: 1. Mild cardiomegaly. 2. No acute findings" CT head "IMPRESSION: 1. Probable small acute infarct in the right frontal operculum. 2. Old right frontal and left occipital lobe infarcts. ...ASPECTS ([place] Stroke Program Early CT Score) is 9." ASSESSMENT: is a 50 yr old w a hx of Congenital heart defect repair, A Fib, 3 CVAs w residual right sided hemianopsia and left side paresthesias, HFpEF, HTN, morbid obesity s/p gastric bypass, FLO who presented w c/o of new vision deficits, worsening left sided paresthesias and malaise and was found to have a new right frontal CVA on CT. PLAN: 1. Right frontal Stroke TSH wnl She has a hx of 3 CVAs w residual right sided hemianopsia and left side paresthesias, the most recent event was in January Plan: admit to PCU / telemetry /fall precautions / keep head of bed elevated to 30 degrees /aspiration precautions / PT/OT/EQUIPMENT TECHNICIAN consults / c/w Eliquis / ASA 325 mg PO +/- statin / add escitalopram (antidepressants post CVA have been shown to improve functional recovery and reduce dependency in individuals both with and without post stroke CVA) / no need for permissive hypertension / f/u lipid panel for ACVD risk score / A1C, MRI/A brain, CTA head and Neck, Hypercoag work up with ESR, CRP, SAVANNAH, Lupus anticoagulant, Protein C & S, Antithrombin 3, Factor V, 2D Echo w bubble study / day time team to consult Neurology 2. Atrial Fib Plan: c/w Eliquis and digoxin 3. NN anemia Plan: iron studies, B12, folate, stool occult 4. HFpEF / D CHF / Chronic HTN Plan: c/w metoprolol / start low dose lisinopril 5. Class 3 Obesity complicates care since her BMI >40 she is a candidate for bariatric surgery Plan: f/u A1C / the pt can f/u w her PCP for STOP BANG questionnaire, hide buffer consult & referral to Bariatric Surgeon / recommend cardiovascular exercise for 40 min 4-5 days a week DVT PROPHYLAXIS: n/a on DOAC DISPOSITION: home after more than 2 midnight's stay Home Medications Scheduled Apixaban (Eliquis) 5 Mg Tablet, 5 MG PO BID Aspirin (Aspirin) 325 Mg Tablet, 325 MG PO DAILY Atorvastatin Calcium (Atorvastatin Calcium) 40 Mg Tablet, 40 MG PO QHS Cetirizine HCl (Cetirizine HCl) 10 Mg Tablet, 10 MG PO DAILY Cholecalciferol (Vitamin D3) (Vitamin D3) 50 Mcg Tablet, 50 MCG PO DAILY Cyanocobalamin (Vitamin B-12) (Vitamin B-12) 100 Mcg Tablet, 100 MCG PO Q2D Digoxin (Digox) 250 Mcg Tablet, 250 MCG PO DAILY Folic Acid (Folic Acid) 1 Mg Tablet, 1 MG PO DAILY Metoprolol Succinate (Toprol Xl) 50 Mg Tab.er.24h, 50 MG PO DAILY Montelukast Sodium (Montelukast Sodium) 10 Mg Tablet, 10 MG PO QHS Pyridoxine HCl (Vitamin B6) (Vitamin B-6) 100 Mg Tablet, 100 MG PO DAILY Allergies Coded Allergies: NUTS (Verified Allergy, Intermediate, Hives, 02/14/20) Olives (Verified Allergy, Intermediate, Hives, 02/14/20) Latex, Natural Rubber (Verified Allergy, Mild, Dermatitis, 02/14/20) Quinolones (Verified Allergy, Mild, HIVES, 03/02/20) clindamycin (Verified Allergy, Mild, HIVES, 03/02/20) codeine (Verified Allergy, Mild, HIVES, 03/02/20) erythromycin base (Verified Allergy, Mild, HIVES, 03/02/20) gentamicin (Verified Allergy, Mild, HIVES, 03/02/20) nitrofurantoin (Verified Allergy, Mild, HIVES, 03/02/20) sulfamethoxazole (Verified Allergy, Mild, HIVES, 03/02/20) trimethoprim (Verified Allergy, Mild, HIVES, 03/02/20) Penicillins (Verified Allergy, Unknown, RASH, 08/24/20) amoxicillin (Verified Allergy, Unknown, RASH, 08/24/20) vancomycin (Verified Adverse Reaction, Severe, JJ SYNDROME, 03/02/20) levofloxacin (Verified Adverse Reaction, Mild, itching, 02/11/20) A-FIB/CHADSVASC A-FIB History Current/History of A-Fib/PAF?: Yes Current PO Anticoag Therapy: Yes DEX CHASE MD Aug 25, 2020 00:31
[2020-08-25] MEDS: APIXABAN 5 MG TAB (ELIQUIS) PO SCH ×3 (02:04→21:31)
[2020-08-25] MEDS: ATORVASTATIN 20 MG TAB PO SCH ×2 (02:04→21:31)
[2020-08-25] MEDS: MONTELUKAST 10 MG TAB PO SCH ×2 (02:04→21:31)
[2020-08-25 02:14] LABS: INR 1.08; PROTHROMBIN TIME 14.2 SECONDS (12.5-14.3)
[2020-08-25 02:15] LABS: PARTIAL THROMBOPLASTIN TIME 29.6 SECONDS (24.2-38.5)
[2020-08-25 04:59] LABS: HEMATOCRIT 30.3 % (36.0-47.0); MEAN CORPUSCULAR HEMOGLOBIN 28.5 pg (27.0-33.0); MEAN CORPUSCULAR HGB CONC 29.7 g/dl (32.0-36.5); MEAN CORPUSCULAR VOLUME 95.9 fl (80.0-96.0); PLATELET COUNT, AUTOMATED 184 10^3/uL (150-450); RED BLOOD COUNT 3.16 10^6/uL (4.00-5.40); WHITE BLOOD COUNT 5.4 10^3/uL (4.0-10.0)
[2020-08-25 05:24] LABS: BLOOD UREA NITROGEN 14 MG/DL (7-18); CALCIUM LEVEL 8.5 MG/DL (8.5-10.1); CARBON DIOXIDE LEVEL 25 MEQ/L (21-32); CHLORIDE LEVEL 110 MEQ/L (98-107); CREATININE FOR GFR 0.69 MG/DL (0.55-1.30); GLOMERULAR FILTRATION RATE > 60.0 (>51); GLUCOSE, FASTING 121 MG/DL (70-100); POTASSIUM SERUM 3.8 MEQ/L (3.5-5.1); SODIUM LEVEL 142 MEQ/L (136-145)
[2020-08-25 08:00] LABS: CHOLESTEROL LEVEL 110 MG/DL (<200); CHOLESTEROL RISK RATIO 3.055 (<5); FERRITIN 14 NG/ML (8-252); HDL CHOLESTEROL 36 MG/DL (>40); IRON (FE) 33 UG/DL (50-170); LDL CHOLESTEROL 53 MG/DL (<100); NON-HDL-C 74 MG/DL; TOTAL IRON BINDING CAPACITY 331 UG/DL (250-450); TRIGLYCERIDES LEVEL 106 MG/DL (<150)
[2020-08-25] MEDS: CETIRIZINE (ZyrTEC) 10 MG TAB PO SCH (08:12)
[2020-08-25] MEDS: FOLIC ACID 1 MG TAB PO SCH (08:13)
[2020-08-25] MEDS: METOPROLOL SUCC (TopROL XL) 50MG **XL** TAB PO SCH (08:13)
[2020-08-25] MEDS: DIGOXIN 0.25 MG TAB PO SCH (08:13)
[2020-08-25] MEDS ORDERED: ESCITALOPRAM OXALATE 5MG TABLET (LEXAPRO) PO SCH ×2 (09:00→21:00)
[2020-08-25] MEDS ORDERED: ENOXAPARIN 40MG/0.4ML SYRINGE (J1650 PER 10MG) SC SCH (09:00)
[2020-08-25] MEDS ORDERED: ASPIRIN 325 MG TAB PO SCH (09:00)
--- NOTE | 2020-08-25 09:28 | ECGEPIP ---
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
[2020-08-25 09:59] LABS: VITAMIN B12 LEVEL 542 PG/ML (247-911)
[2020-08-25 10:00] LABS: FOLATE 10.1 NG/ML (>5.4)
[2020-08-25] MEDS ORDERED: LEXA5TAB13 PO (10:01)
[2020-08-25] MEDS ORDERED: ASPI81CH33 PO (10:01)
[2020-08-25] MEDS ORDERED: LISI2.5T2 PO (10:01)
--- NOTE | 2020-08-25 11:10 | REP ---
INDICATION: f/u on acute right frontal cva. COMPARISON: Comparison MRI study of the brain is from February 11, 2020. Comparison CT angio brain August 24, 2020.. TECHNIQUE: Axial and sagittal imaging planes are utilized for T1 and T2-weighted scans. Sequences include spin-echo, fast spin echo, FLAIR, and diffusion weighted sequences. FINDINGS: No bony calvarial lesion is seen. Craniocervical junction and upper cervical cord are normal in appearance. There is no MR evidence of significant paranasal sinus disease. No intraorbital abnormality is seen. There is an old infarct in left occipital lobe unchanged from prior studies. An old lacunar infarct is noted in the right thalamus and right cerebral peduncle. This is also unchanged. There is no evidence of intracranial hemorrhage. On diffusion-weighted scans, there is a focus of restricted diffusion indicating acute ischemia involving the right parietal lobe. There is corresponding T2 hyperintensity here on FLAIR and turbo spin echo T2. No corresponding low T1 signal intensity. No other area of acute restricted diffusion is seen. No extra-axial fluid collection or midline shift is observed. IMPRESSION: New focus of acute ischemia and restricted diffusion in the right parietal lobe consistent with a small peripheral cortical infarction. Old lacunar infarct right thalamus and cerebral peduncle. Old cerebral infarct left occipital lobe.. <Electronically signed by Elder Lancaster > 08/25/20 [id number]
[2020-08-25] MEDS ORDERED: CLOPIDOGREL 75 MG TAB PO ONE (12:15)
--- NOTE | 2020-08-25 13:43 | IPNPDOC ---
Text Note Date of Service The patient was seen on 08/25/20. NOTE Subjective: Patient is a 50-year-old female with a PMHx of Cor triatrium repair as child, A. fib (on Eliquis), Diastolic CHF, CVA (x3), HTN, Morbid obesity s/p Bypass, FLO on CPAP, who presented to the hospital because of headaches. Patient reported that on Monday she was experiencing visual problems noted black spots lasted for about 1 minute and resolved on their own. Yesterday, patient began to experience a headache and continue the emergency room for further evaluation. MRI completed this morning has revealed evidence of an acute CVA. Neurology was called on consultation. Patient was seen and examined at the bedside. Patient reports that she has been compliant with Eliquis and aspirin 325 daily. Patient denies any chest pain, shortness breath, palpitations, nausea, vomiting, abdominal pain, diarrhea, or urinary discomfort. Reports no visual problems this morning. Objective: Vitals (See below) General: Lying in bed, appears comfortable, AAOx3 HEENT: NC, AT CVS: RRR, +S1S2 Lungs: Fair air entry b/l, -w/r/r Abdomen: Soft, ND, NT Extremities: No evidence of edema, - Calf tenderness Neuro: 5/5 strength at upper / lower extremities bilaterally Assessment and plan: Headache / Visual problems / Right frontal Stroke - Patient reported headache yesterday and visual problems on Monday - Currently patient has had full resolution of her symptoms - MRI brain 08/25: New focus of acute ischemia and restricted diffusion in the right parietal lobe consistent with a small peripheral cortical infarction. Old lacunar infarct right thalamus and cerebral peduncle. Old cerebral infarct left occipital lobe. - CT head 08/24: 1. Probable small acute infarct in the right frontal operculum. 2. Old right frontal and left occipital lobe infarcts. - CTA Neck 08/24: Unremarkable CTA. No significant stenosis, aneurysm, or vascular occlusion. - CTA head 08/24: 1. Severe stenosis of the origin of the right APPLE TURNER. 2. No other significant stenosis or large vessel occlusion - Discussed with Neurology and Cardiology; will continue with full into regulation with a was 5 twice a day; aspirin will be discontinued; will start Plavix - Discussed with Cardiology (Dr. Malhotra) about ECHO / switching anticoagulation; at this point there is no benefit to switching to Coumadin / Multiple ECHOs completed, as well as DARRYL; no evidence of PFO / Thrombus was identified --- Patient does not want to switch to Coumadin as well; discussed risks / benefits - verbalized understanding - Discussed bleeding risks with patient; advised benefits are greater than risks. Patient has verbalized understanding - Patient will remain in the hospital for an additional 24 hours; ancipitate DC home tomorrow - Has cleared PT and OT - Neurology on consultation; will evaluate patient today Paroxysmal Atrial Fib - c/w rate / rhythm control with Metoprolol and Digoxin - c/w full anticoagulation with Eliquis Normocytic anemia - Will start Iron supplementation HFpEF / Chronic Diastolic CHF / HTN - Allow permissive HTN; Goal SBP of 140-180 - c/w metoprolol with hold parameters Class 3 Obesity - BMI of 44.9 - Complicating medical care GI prophylaxis - c/w DVT prophylaxis - c/w full anticoagulation with Eliquis Disposition: - Anticipate DC home tomorrow VS,Brisa, I+O VS, Brisa, I+O Laboratory Tests 08/24/20 22:10 08/25/20 04:39 Vital Signs Date Time Temp Pulse Resp B/P (MAP) Pulse Ox O2 Delivery O2 Flow Rate FiO2 08/25/20 12:00 97.8 68 20 147/70 (95) 99 Room Air I&O- Last 24 Hours up to 6 AM 08/25/20 06:00 Intake Total 550 ml Output Total 0 ml Balance 550 ml MAYITO LOUIE MD Aug 25, 2020 13:43
[2020-08-25] MEDS: FERROUS SULFATE 325MG TAB PO SCH ×2 (14:08→21:31)
[2020-08-25] MEDS ORDERED: LISINOPRIL *2.5 MG* TAB PO SCH (21:00)
[2020-08-25] MEDS ORDERED: PRAVASTATIN 20 MG TAB PO SCH (21:00)
[2020-08-26 00:29] VITALS: BP 136/72
[2020-08-26 00:51] LABS: BASO % 0.4 % (0.0-1.0); EOS # 0.2 10^3/uL (0.0-0.5); EOS % 2.8 % (0.0-3.0); HEMATOCRIT 28.1 % (36.0-47.0); HEMOGLOBIN 8.6 g/dl (12.0-15.5); LYMPH # 0.8 10^3/uL (1.5-5.0); LYMPH % 14.4 % (24.0-44.0); MEAN CORPUSCULAR HEMOGLOBIN 28.9 pg (27.0-33.0); MEAN CORPUSCULAR HGB CONC 30.6 g/dl (32.0-36.5); MEAN CORPUSCULAR VOLUME 94.3 fl (80.0-96.0); MONO # 0.4 10^3/uL (0.0-0.8); MONO % 7.1 % (0.0-5.0); NEUTROPHILS # 4.2 10^3/uL (1.5-8.5); NEUTROPHILS % 74.6 % (36.0-66.0); PLATELET COUNT, AUTOMATED 167 10^3/uL (150-450); RED BLOOD COUNT 2.98 10^6/uL (4.00-5.40); WHITE BLOOD COUNT 5.6 10^3/uL (4.0-10.0)
[2020-08-26 01:12] LABS: BLOOD UREA NITROGEN 12 MG/DL (7-18); CALCIUM LEVEL 8.7 MG/DL (8.5-10.1); CARBON DIOXIDE LEVEL 28 MEQ/L (21-32); CHLORIDE LEVEL 107 MEQ/L (98-107); CREATININE FOR GFR 0.67 MG/DL (0.55-1.30); GLOMERULAR FILTRATION RATE > 60.0 (>51); GLUCOSE, FASTING 102 MG/DL (70-100); MAGNESIUM LEVEL 1.9 MG/DL (1.8-2.4); POTASSIUM SERUM 3.9 MEQ/L (3.5-5.1); SODIUM LEVEL 139 MEQ/L (136-145)
[2020-08-26 02:00] VITALS: BP 137/70
[2020-08-26 06:00] VITALS: BP 141/83
[2020-08-26] MEDS ORDERED: PLAV1TAB2 PO (08:16)
[2020-08-26] MEDS: FOLIC ACID 1 MG TAB PO SCH (08:54)
[2020-08-26] MEDS: APIXABAN 5 MG TAB (ELIQUIS) PO SCH (08:54)
[2020-08-26] MEDS: FERROUS SULFATE 325MG TAB PO SCH (08:54)
[2020-08-26] MEDS: CETIRIZINE (ZyrTEC) 10 MG TAB PO SCH (08:54)
[2020-08-26] MEDS: DIGOXIN 0.25 MG TAB PO SCH (08:58)
[2020-08-26 08:59] VITALS: BP 141/83
[2020-08-26] MEDS: METOPROLOL SUCC (TopROL XL) 50MG **XL** TAB PO SCH (08:59)
[2020-08-26] MEDS ORDERED: CLOPIDOGREL 75 MG TAB PO SCH (09:00)
[2020-08-26] MEDS ORDERED: FERR325T18 PO (09:42)
--- NOTE | 2020-08-26 09:42 | DS.PDOC ---
Discharge Summary General Date of Admission Aug 24, 2020 at 23:32 Date of Discharge 08/26/2020 Discharge Summary PROCEDURES PERFORMED DURING STAY: [None]. 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 fib (on Eliquis), Diastolic CHF, CVA (x3), HTN, Morbid obesity s/p B ypass, FLO on CPAP, who presented to the hospital because of headaches. Patient reported that on Monday she was experiencing visual problems noted black spots lasted for about 1 minute and resolved on their own. Yesterday, patient began to experience a headache and continue the emergency room for further evaluation. MRI completed this morning has revealed evidence of an acute CVA. Neurology was called on consultation. HOSPITAL COURSE: Headache / Visual problems / Right frontal Stroke - Patient has had full resolution of her symptoms - MRI brain 08/25: New focus of acute ischemia and restricted diffusion in the right parietal lobe consistent with a small peripheral cortical infarction. Old lacunar infarct right thalamus and cerebral peduncle. Old cerebral infarct left occipital lobe. - CT head 08/24: 1. Probable small acute infarct in the right frontal operculum. 2. Old right frontal and left occipital lobe infarcts. - CTA Neck 08/24: Unremarkable CTA. No significant stenosis, aneurysm, or vascular occlusion. - CTA head 08/24: 1. 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 2. No other significant stenosis or large vessel occlusion - Discussed with Neurology and Cardiology; will continue with full into regulation with a was 5 twice a day; aspirin will be discontinued; will start Plavix - Discussed with Cardiology (Dr. Malhotra) about ECHO / switching anticoagulation; at this point there is no benefit to switching to Coumadin / Multiple ECHOs completed, as well as DARRYL; no evidence of PFO / Thrombus was identified --- Patient does not want to switch to Coumadin as well; discussed risks / benefits - verbalized understanding - Discussed bleeding risks with patient; advised benefits are greater than risks. Patient has verbalized understanding - Has cleared PT and OT - Neurology on consultation; will have outpatient follow up within 7 days Paroxysmal Atrial Fib - c/w rate / rhythm control with Metoprolol and Digoxin - c/w full anticoagulation with Eliquis Normocytic anemia - c/w Iron supplementation HFpEF / Chronic Diastolic CHF / HTN - Can normalize BP now - c/w metoprolol and Lisinopril with hold parameters Class 3 Obesity - BMI of 44.9 - Complicating medical care DVT prophylaxis - c/w full anticoagulation with Eliquis DISCHARGE MEDICATIONS: Please see below. ALLERGIES: Please see below. PHYSICAL EXAMINATION ON DISCHARGE: Vitals (See below) General: Lying in bed, remains comfortable, AAOx3 HEENT: NC, AT CVS: +S1S2 Lungs: Fair air entry b/l, no appreciable wheezing, rhonchi or rales Abdomen: Soft, nondistended and nontender Extremities: No evidence of edema, - Calf tenderness Neuro: 5/5 strength at upper / lower extremities bilaterally LABORATORY DATA: Please see below. ACTIVITY: [As tolerated]. DISCHARGE PLAN: Follow up with PCP and Neurology within 7 days Remain compliant with treatment plan and medications Return to the ER if you experience any problems DISPOSITION: Home DISCHARGE CONDITION: [Stable]. TIME SPENT ON DISCHARGE: 35 minutes. Vital Signs/I&Os Vital Signs Date Time Temp Pulse Resp B/P (MAP) Pulse Ox O2 Delivery O2 Flow Rate FiO2 08/26/20 08:59 78 141/83 08/26/20 06:00 98.4 18 97 Room Air I&O- Last 24 Hours up to 6 AM 08/26/20 05:59 Intake Total 1540 ml Output Total 0 ml Balance 1540 ml Laboratory Data Labs 24H Laboratory Tests 2 08/26/20 00:41: Immature Granulocyte % (Auto) 0.7, Neutrophils (%) (Auto) 74.6H, Lymphocytes (%) (Auto) 14.4L, Monocytes (%) (Auto) 7.1H, Eosinophils (%) (Auto) 2.8, Basophils (%) (Auto) 0.4, Neutrophils # (Auto) 4.2, Lymphocytes # (Auto) 0.8L, Monocytes # (Auto) 0.4, Eosinophils # (Auto) 0.2, Basophils # (Auto) 0.0, Nucleated Red Blood Cells % (auto) 0.0, Anion Gap 4L, Glomerular Filtration Rate > 60.0, C alcium Level 8.7, Magnesium Level 1.9 CBC/BMP Laboratory Tests 08/26/20 00:41 Discharge Medications Scheduled Apixaban (Eliquis) 5 Mg Tablet, 5 MG PO BID, (Reported) Atorvastatin Calcium (Atorvastatin Calcium) 40 Mg Tablet, 40 MG PO QHS, (Reported) Cetirizine HCl (Cetirizine HCl) 10 Mg Tablet, 10 MG PO DAILY, (Reported) Cholecalciferol (Vitamin D3) (Vitamin D3) 50 Mcg Tablet, 50 MCG PO DAILY, (Reported) Clopidogrel Bisulfate (Plavix) 75 Mg Tablet, 1 TAB PO DAILY Cyanocobalamin (Vitamin B-12) (Vitamin B-12) 100 Mcg Tablet, 100 MCG PO Q2D, (Reported) Digoxin (Digox) 250 Mcg Tablet, 250 MCG PO DAILY, (Reported) Folic Acid (Folic Acid) 1 Mg Tablet, 1 MG PO DAILY, (Reported) Lisinopril (Lisinopril) 2.5 Mg Tablet, 2.5 MG PO QHS Metoprolol Succinate (Toprol Xl) 50 Mg Tab.er.24h, 50 MG PO DAILY, (Reported) Montelukast Sodium (Montelukast Sodium) 10 Mg Tablet, 10 MG PO QHS, (Reported) Pyridoxine HCl (Vitamin B6) (Vitamin B-6) 100 Mg Tablet, 100 MG PO DAILY, (Reported) Allergies Coded Allergies: NUTS (Verified Allergy, Intermediate, Hives, 02/14/20) Olives (Verified Allergy, Intermediate, Hives, 02/14/20) Latex, Natural Rubber (Verified Allergy, Mild, Dermatitis, 02/14/20) Quinolones (Verified Allergy, Mild, HIVES, 03/02/20) clindamycin (Verified Allergy, Mild, HIVES, 03/02/20) codeine (Verified Allergy, Mild, HIVES, 03/02/20) erythromycin base (Verified Allergy, Mild, HIVES, 03/02/20) gentamicin (Verified Allergy, Mild, HIVES, 03/02/20) nitrofurantoin (Verified Allergy, Mild, HIVES, 03/02/20) sulfamethoxazole (Verified Allergy, Mild, HIVES, 03/02/20) trimethoprim (Verified Allergy, Mild, HIVES, 03/02/20) Penicillins (Verified Allergy, Unknown, RASH, 08/24/20) amoxicillin (Verified Allergy, Unknown, RASH, 08/24/20) vancomycin (Verified Adverse Reaction, Severe, JJ SYNDROME, 03/02/20) levofloxacin (Verified Adverse Reaction, Mild, itching, 02/11/20) MAYITO LOUIE MD Aug 26, 2020 09:42
[2020-08-26 10:00] VITALS: BP 136/80
[2020-08-26 11:21] LABS: DRVV SCREEN 43.7 SEC
[2020-08-26 11:25] LABS: PTT LUPUS TYPE ANTICOAG SCREEN 1.1 (0-1.2)
--- NOTE | 2020-08-27 11:24 | CR ---
DATE OF CONSULTATION: 08/25/2020 REASON FOR CONSULTATION: Acute ischemic stroke. REQUESTING PROVIDER: Ifeanyi Gongora DO HISTORY OF PRESENT ILLNESS: The patient is a 52-year-old female with a past medical history significant for past strokes with residual right-sided hemiparesis, vision loss, and hemianopsia. The patient has a history of atrial fibrillation and is currently on Eliquis 5 mg twice a day. Over the last few weeks, the patient stopped taking her 81 mg aspirin and has been taking a full dose aspirin. The patient started to develop visual disturbance a few days ago and then developed a headache. She was advised by her neurology physician ophthalmic surgical assistant to go to the emergency department, however the patient stayed home in bed. The patient was found to have evidence of a right parietal ischemic stroke on imaging. The patient is asymptomatic from that stroke she states. She has baseline residual hemisensory changes involving her left arm and with some residual weakness. The patient denies any new visual changes since this event. The patient denies any diplopia, dysarthria, dysphagia, or ataxia. She ambulates cautiously at her baseline. The plan during this admission was to repeat echocardiogram, however after contacting cardiology echocardiogram was canceled as the patient recently had one in January of 2020. The patient had angiogram studies of the head and neck which did not reveal any critical stenosis. Her cholesterol level is ideal. Her A1c is 5.7. The patient was then placed on Plavix 75 mg daily in addition to her Eliquis 5 mg twice a day, aspirin was discontinued. The patient understands the risks associated with Plavix therapy and anticoagulation therapy for risk of gastrointestinal (GI) bleeding or any other bleeding in the body. I recommended that the patient speak to her auto slip cover installer regarding whether she would benefit from a Watchman device placement as this is her fourth ischemic stroke. PAST MEDICAL HISTORY: Cor triatrium status post repair as an , atrial fibrillation on anticoagulation, history of three strokes with right-sided hemianopsia and left-sided paresthesias, congestive heart failure (CHF), chronic hypertension, morbid obesity status post gastric bypass, obstructive sleep apnea. PAST SURGICAL HISTORY: Breast reduction surgery, incarcerated incisional hernia surgery, section times two, dilatation and curettage (D and C), core biopsy of cervix, cardiac catheterization September 2019 without stent placement. FAMILY HISTORY: Noncontributory. SOCIAL HISTORY: Patient is a former smoker. Uses alcohol recreationally. Denies any recreational drug use. 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 PHYSICAL EXAMINATION: Blood pressure 148/70, heart rate 76, respiratory rate is 18, temperature is 99.3, oxygenation 100% on room air. Patient is oriented to person, place, and time. Speech, language, comprehension, and repetition are intact. Pupils 3 mm and round. Extraocular movements are intact. There is no facial weakness. Tongue is midline. Hearing is equal to finger rub. There is no loss of sensation to light touch in the face, arms, and legs on the right side, however there is hyperesthesia to touch on the left side. There does appear to be mild ataxia on [id number] of the left upper extremity, mild hemiparesis of the left arm and left leg. Deep tendon reflexes are increased on the left side compared to the right. Babinski sign is positive on the left. Gait is cautious. ASSESSMENT: 1. New acute ischemic stroke involving the right parietal lobe in the setting of atrial fibrillation on Eliquis 5 mg twice a day and taking aspirin 325 mg daily. PLAN: 1. Agree with switching aspirin to Plavix 75 mg daily. Continue statin therapy. Continue anticoagulation Eliquis 5 mg twice a day. Patient may need outpatient evaluation for possible Watchman device. 2. Return to clinic (RTC) in the neurology clinic as scheduled. Prior hypercoagulable vasculitic workup has been negative. There is no carotid stenosis or intracranial stenosis to suspect thrombolic emboli, suspect cardioembolic strokes. 3. Recommend physical therapy (PT) / occupational therapy (OT) evaluation. Continue telemetry monitoring. Continue all of the supportive care. ALLIE
[2020-08-27 20:07] LABS: ANTI THROMBIN 3 ANTIGEN IMMUNO 72 % (72-124); ANTI THROMBIN 3 FUNCT ACTIVITY 106 % (75-135); ANTINUCLEAR ANTIBODIES DIRECT Negative (Negative); CARDIOLIPIN IGA ANTIBODY <9 APL U/mL (0-11); CARDIOLIPIN IGG ANTIBODY <9 GPL U/mL (0-14); CARDIOLIPIN IGM ANTIBODY 10 MPL U/mL (0-12); PROTEIN C ANTIGEN 76 % (60-150); PROTEIN S ANTIGEN FREE 96 % (57-157); PROTEIN S ANTIGEN TOTAL 76 % (60-150)
== END 2020-08-26 11:58 | disposition home or self-care (01) | DRG 65 ==
LOC: M ED 21:54 → M ED INP 23:32 → M ICU 08-25 01:30 → M MSPAV 08-25 15:14
PROVIDERS: ADMIT Internal Medicine; ATTEND Internal Medicine
DX: I63.9 Cerebral infarction, unspecified (principal); I50.32 Chronic diastolic (congestive) heart failure; Z68.41 Body mass index [BMI] 40.0-44.9, adult; I48.0 Paroxysmal atrial fibrillation; E66.01 Morbid (severe) obesity due to excess calories; I11.0 Hypertensive heart disease with heart failure; D64.9 Anemia, unspecified; G47.33 Obstructive sleep apnea (adult) (pediatric); Z98.84 Bariatric surgery status; Z79.01 Long term (current) use of anticoagulants; Z79.899 Other long term (current) drug therapy; Z91.040 Latex allergy status; Z88.5 Allergy status to narcotic agent; Z88.0 Allergy status to penicillin; Z88.8 Allergy status to other drugs, medicaments and biological substances; Z88.2 Allergy status to sulfonamides; Z91.010 Allergy to peanuts; Z95.2 Presence of prosthetic heart valve

== ENCOUNTER 2020-09-19 20:21 | Emergency (ER) | payer OTHER ==
[~2020-09-19] VITALS: Ht 157.5 cm; Wt 110.9 kg
[~2020-09-19 20:21] MED LIST changes: +ASPI-1 PO; +ASPI1TAB22 PO; +ASPI81CH33 PO; +ATOR40TA75; +ATOR40TA75 PO; +B-12100T2 PO; +CETI10TA4 PO; +ELIQ2.5T; +ENTR1TAB; +FERR325T18 PO; +FOLI1TAB11 PO; +LEXA5TAB13 PO; +LISI10TA4; +LISI2.5T2 PO; -MONT10TA4 PO; +MONT5TAB2 PO; +PLAV1TAB2 PO; +VITA100T14 PO; +VITA200015 PO
[2020-09-19] MEDS ORDERED: ENTR1TAB PO (20:39)
[2020-09-19] MEDS ORDERED: ASPI81CH10 PO (20:39)
[2020-09-19 22:00] VITALS: BP 133/74
--- NOTE | 2020-09-20 20:34 | ECGEPIP ---
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
== END 2020-09-19 22:21 | disposition home or self-care (01) ==
LOC: M ED 20:21
DX: J02.8 Acute pharyngitis due to other specified organisms (principal); I25.10 Atherosclerotic heart disease of native coronary artery without angina pectoris; I10 Essential (primary) hypertension; Z86.73 Personal history of transient ischemic attack (TIA), and cerebral infarction without residual deficits; Z79.01 Long term (current) use of anticoagulants; Z79.82 Long term (current) use of aspirin; Z79.899 Other long term (current) drug therapy; Z91.040 Latex allergy status; Z91.010 Allergy to peanuts; Z91.018 Allergy to other foods; Z88.8 Allergy status to other drugs, medicaments and biological substances; Z88.1 Allergy status to other antibiotic agents; Z88.5 Allergy status to narcotic agent; Z88.0 Allergy status to penicillin

== ENCOUNTER 2020-09-22 20:10 | Observation (INO) | payer OTHER ==
[~2020-09-22] VITALS: Ht 157.5 cm; Wt 111.5 kg
[~2020-09-22 20:10] MED LIST changes: +ASPI81CH10 PO; +ENTR1TAB PO
[2020-09-22 20:50] LABS: BASO % 0.3 % (0.0-1.0); EOS # 0.1 10^3/uL (0.0-0.5); EOS % 1.9 % (0.0-3.0); HEMATOCRIT 33.5 % (36.0-47.0); HEMOGLOBIN 10.1 g/dl (12.0-15.5); LYMPH # 0.8 10^3/uL (1.5-5.0); LYMPH % 12.6 % (24.0-44.0); MEAN CORPUSCULAR HEMOGLOBIN 27.7 pg (27.0-33.0); MEAN CORPUSCULAR HGB CONC 30.1 g/dl (32.0-36.5); MONO # 0.5 10^3/uL (0.0-0.8); MONO % 7.1 % (0.0-5.0); NEUTROPHILS % 77.8 % (36.0-66.0); PLATELET COUNT, AUTOMATED 218 10^3/uL (150-450); RED BLOOD COUNT 3.64 10^6/uL (4.00-5.40); WHITE BLOOD COUNT 6.5 10^3/uL (4.0-10.0)
[2020-09-22 21:05] LABS: INR 1.36; PROTHROMBIN TIME 17.1 SECONDS (12.5-14.3)
[2020-09-22 21:06] LABS: PARTIAL THROMBOPLASTIN TIME 36.1 SECONDS (24.2-38.5)
[2020-09-22 21:14] LABS: BLOOD UREA NITROGEN 13 MG/DL (7-18); CALCIUM LEVEL 8.7 MG/DL (8.5-10.1); CARBON DIOXIDE LEVEL 29 MEQ/L (21-32); CHLORIDE LEVEL 106 MEQ/L (98-107); CK-MB VALUE MASS < 1.0 NG/ML (<3.6); CPK CREATINE PHOSPHOKINASE 41 U/L (26-192); GLOMERULAR FILTRATION RATE > 60.0 (>51); GLUCOSE, FASTING 108 MG/DL (70-100); MB/CK RELATIVE INDEX 2.44 (< OR =4); POTASSIUM SERUM 3.8 MEQ/L (3.5-5.1); SODIUM LEVEL 140 MEQ/L (136-145); TROPONIN I < 0.02 NG/ML (< 0.10)
--- NOTE | 2020-09-22 21:20 | REPVR ---
PROCEDURE INFORMATION: Exam: CT Head Without Contrast Exam date and time: 09/22/2020 8:46 PM Age: 50 years old Clinical indication: Other: CVA - nursing interventions must not delay CT TECHNIQUE: Imaging protocol: Computed tomography of the head without contrast. Radiation optimization: All CT scans at this facility use at least one of these dose optimization techniques: automated exposure control; mA and/or kV adjustment per patient size (includes targeted exams where dose is matched to clinical indication); or iterative reconstruction. Other technique: STROKE PROTOCOL was implemented. COMPARISON: CT Head without contrast 08/24/2020 10:08 PM FINDINGS: Brain: Stable hypodense encephalomalacia involving the left occipital lobe, consistent with an old infarct. A small chronic infarct is again visualized involving the superior left cerebellar lobe. There is a stable chronic lacunar infarct within the right thalamus. The white-denise differentiation is otherwise preserved demonstrating no acute territorial type infarct. No acute intracranial hemorrhage is visualized. No intracranial mass effect. There is no midline shift. Artifact limits evaluation of the roni. Cerebral ventricles: No ventriculomegaly. Bones/joints: The calvarium demonstrates no evidence for a depressed fracture. Paranasal sinuses: Visualized sinuses are unremarkable. No fluid levels. Mastoid air cells: No mastoid effusion. Soft tissues: Unremarkable. IMPRESSION: 1. No acute intracranial hemorrhage or acute territorial type infarct. 2. Stable encephalomalacia involving the left occipital lobe, consistent with an old infarct. 3. A small chronic infarct is again visualized involving the superior left cerebellar lobe. There is a stable chronic lacunar infarct within the right thalamus. 4. If further evaluation is clinically indicated, an MRI of the brain is recommended. ASSESSMENT: [place] Stroke Program Early CT Score (ASPECTS) = 10 Electronically signed by: Kosta Vasquez On 09/22/2020 21:20:00 PM
--- NOTE | 2020-09-22 21:23 | REPVR ---
PROCEDURE INFORMATION: Exam: XR Chest, 1 View Exam date and time: 09/22/2020 8:34 PM Age: 50 years old Clinical indication: Chest pain; Additional info: CVA TECHNIQUE: Imaging protocol: XR of the chest Views: 1 view. COMPARISON: CR Chest, 2 view PA, Lat 08/24/2020 10:12 PM FINDINGS: Lungs: There is no visualized lung consolidation. Prominence of the pulmonary vascular markings. Pleural space: No pleural effusion. No pneumothorax. Heart/Mediastinum: The cardiac silhouette appears enlarged. Bones/joints: Mild convexity of the thoracic spine to the left. Hypertrophic degenerative changes are noted involving the spine. IMPRESSION: 1. The cardiac silhouette appears enlarged. 2. There is no visualized lung consolidation. 3. Prominence of the pulmonary vascular markings. Electronically signed by: Kosta Vasquez On 09/22/2020 21:23:02 PM
[2020-09-22] MEDS ORDERED: PLAV1TAB2 PO (22:12)
[2020-09-22] MEDS ORDERED: FERR1TAB8 PO (22:12)
[2020-09-22] MEDS ORDERED: CYAN100049 PO (22:12)
[2020-09-22] MEDS ORDERED: ASPI-559 PO (22:12)
[2020-09-22] MEDS ORDERED: ACETAMINOPHEN TAB 650MG DOSE (2X325MG) PO PRN (22:30)
--- NOTE | 2020-09-22 23:16 | HPEPDOC ---
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 Patient reports that she chronically experiences left upper and lower extremity numbness and tingling. However, today, was worsened compared to her baseline. Patient reports that she has been compliant with her as was aspirin and Plavix. Today she was scheduled to receive a sleep study, however, experience symptoms and presented to the emergency room instead. Patient was recently admitted to the hospital on 08/25 and discharged on 08/26 after she was suspected of having a CVA. After extensive discussion with the patient, she was started on dual antiplatelet therapy as well as continued on Eliquis. Patient has followed up with neurology since she was discharged. Patient denies any nausea, vomiting, chest pain, shortness breath, cough, abdominal pain, constipation, diarrhea, or any recent fevers or chills. Past Medical History: Cor triatriatum repair as an A Fib (on Eliquis) 3 CVAs w residual right sided hemianopia and left side paresthesia HFpEF / Diastolic CHF Chronic HTN Morbid obesity s/p gastric bypass FLO Past Surgical History: Breast reduction surgery Incarcerated incisional hernia surgery Cholecystectomy 2 Dilation and curettage Core biopsy of cervix Cardiac catheterization 09/2019; no stent placement; reported to have an ejection fraction of 60% at the time Allergies: See below Medications: See below Family History: - Family history of heart disease Social History: - Denies the use of illicit drugs; patient reports that she quit smoking and occasionally uses alcohol - Denies recent travel or sick contacts - 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; 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 Review of Systems: 10 point review of systems complete, all negative otherwise stated in HPI Physical exam: - Vitals: BP [136/72], HR [86], RR [18], Sat [100%RA], Temp [97.9F] - General: Lying in bed, No acute distress, Speaking in full sentences, AAOx3 - HEENT: NC, AT, PERRLA - CVS: RRR, +S1S2 - Lungs: Fair air entry bilaterally, No appreciable wheezing / rales / rhonchi - Abdomen: Soft, Non-distended, Non-tender - Extremities: No lower extremity edema, No calf tenderness - Neuro: 5/5 strength at upper and lower extremities bilaterally; patient reports her left upper and lower extremities have decreased sensation compared to her right - Skin: No visible rashes Labs: See below Imaging: See below EKG: See below Assessment and Plan: Acute on chronic paresthesia of LUE / LLE - possibly 2/2 CVA, possibly 2/2 TIA - Patient presented to the emergency room with worsening numbness and tingling of her left upper and lower extremity - Patient reports compliance with L Tama and dual platelet therapy - She remains hemodynamically stable - CT head 09/22: 1. No acute intracranial hemorrhage or acute territorial type infarct. 2. Stable encephalomalacia involving the left occipital lobe, consistent with an old infarct. 3. A small chronic infarct is again visualized involving the superior left cerebellar lobe. There is a stable chronic lacunar infarct within the right thalamus. 4. If further evaluation is clinically indicated, an MRI of the brain is recommended. - Will get MRI and MRA brain / duplex ultrasound carotid / echo cardiogram with bubble study / cardiac risk profile - Will c/w Eliquis / ASA 325 / Plavix 75 / Atorvastatin Cor triatriatum - s/p repair as an A Fib - Patient is currently in sinus rhythm - Will continue with rate and rhythm control with metoprolol and digoxin - Will continue with full anticoagulation with Eliquis Multiple CVAs (w/ residual right sided hemianopia and left side paresthesia) - See above HFpEF / Diastolic CHF - Does not appear to have any exacerbation at this time - Currently not on any diuretic therapy Chronic HTN - Blood pressure currently is well controlled - Will allow for permissive hypertension until stroke is ruled out - Will have adjusted hold parameters for Entresto and change Metoprolol to short acting Morbid obesity s/p gastric bypass - BMI of 44.7 - Complicating getting medical care FLO - Will start FLO protocol DVT prophylaxis - Will c/w full anticoagulation with Eliquis Vital Signs Vital Signs Date Time Temp Pulse Resp B/P (MAP) Pulse Ox O2 Delivery O2 Flow Rate FiO2 09/22/20 23:10 09/22/20 20:10 97.9 86 18 100 Room Air Laboratory Data Labs 24H Laboratory Tests 2 09/22/20 20:38: Immature Granulocyte % (Auto) 0.3, Neutrophils (%) (Auto) 77.8H, Lymphocytes (%) (Auto) 12.6L, Monocytes (%) (Auto) 7.1H, Eosinophils (%) (Auto) 1.9, Basophils (%) (Auto) 0.3, Neutrophils # (Auto) 5.0, Lymphocytes # (Auto) 0.8L, Monocytes # (Auto) 0.5, Eosinophils # (Auto) 0.1, Basophils # (Auto) 0.0, Nucleated Red Blood Cells % (auto) 0.0, Prothrombin Time 17.1H, Prothromb Time International Ratio 1.36, Activated Partial Thromboplast Time 36.1, Anion Gap 5L, Glomerular Filtration Rate > 60.0, Calcium Level 8.7, Total Creatine Kinase 41, Creatine Kinase MB < 1.0, Creatine Kinase MB Relative Index 2.44, Troponin I < 0.02 09/22/20 21:43: Coronavirus (COVID-19)(PCR) NEGATIVE CBC/BMP Laboratory Tests 09/22/20 20:38 Home Medications Scheduled Apixaban (Eliquis) 5 Mg Tablet, 5 MG PO BID Aspirin (Aspirin) 325 Mg Tablet, 325 MG PO DAILY Atorvastatin Calcium (Atorvastatin Calcium) 40 Mg Tablet, 40 MG PO QHS Cetirizine HCl (Cetirizine HCl) 10 Mg Tablet, 10 MG PO DAILY Cholecalciferol (Vitamin D3) (Vitamin D3) 50 Mcg Tablet, 50 MCG PO DAILY Clopidogrel Bisulfate (Plavix) 75 Mg Tablet, 75 MG PO DAILY Cyanocobalamin (Vitamin B-12) (Vitamin B-12) 1,000 Mcg Tablet, 1,000 MCG PO Q2D Digoxin (Digox) 250 Mcg Tablet, 250 MCG PO DAILY Ferrous Sulfate (Ferrous Sulfate) 325 Mg Tablet, 325 MG PO Q2D Folic Acid (Folic Acid) 1 Mg Tablet, 1 MG PO DAILY Metoprolol Succinate (Toprol Xl) 50 Mg Tab.er.24h, 50 MG PO DAILY Montelukast Sodium (Montelukast Sodium) 10 Mg Tablet, 10 MG PO QHS Pyridoxine HCl (Vitamin B6) (Vitamin B-6) 100 Mg Tablet, 100 MG PO DAILY Sacubitril/Valsartan (Entresto 24 mg-26 mg Tablet) 1 Each Tablet, 24 MG PO DAILY Allergies Coded Allergies: NUTS (Verified Allergy, Intermediate, Hives, 09/22/20) Olives (Verified Allergy, Intermediate, Hives, 09/22/20) Latex, Natural Rubber (Verified Allergy, Mild, Dermatitis, 09/22/20) Quinolones (Verified Allergy, Mild, HIVES, 09/22/20) clindamycin (Verified Allergy, Mild, HIVES, 09/22/20) codeine (Verified Allergy, Mild, HIVES, 09/22/20) erythromycin base (Verified Allergy, Mild, HIVES, 09/22/20) gentamicin (Verified Allergy, Mild, HIVES, 09/22/20) nitrofurantoin (Verified Allergy, Mild, HIVES, 09/22/20) sulfamethoxazole (Verified Allergy, Mild, HIVES, 09/22/20) trimethoprim (Verified Allergy, Mild, HIVES, 09/22/20) Penicillins (Verified Allergy, Unknown, RASH, 09/22/20) amoxicillin (Verified Allergy, Unknown, RASH, 09/22/20) vancomycin (Verified Adverse Reaction, Severe, JJ SYNDROME, 09/22/20) levofloxacin (Verified Adverse Reaction, Mild, itching, 09/22/20) MAYITO LOUIE MD Sep 22, 2020 23:16
--- NOTE | 2020-09-23 00:53 | REPVR ---
PROCEDURE INFORMATION: Exam: MR Head Without Contrast Exam date and time: 09/22/2020 9:31 PM Age: 50 years old Clinical indication: Weakness, extremity; Bilateral; Additional info: CVA TECHNIQUE: Imaging protocol: MR of the head without contrast. COMPARISON: MRI-Brain without Contrast 08/25/2020 10:02 AM FINDINGS: Brain: No restricted diffusion within the brain to suggest an acute infarct. Increased signal intensity is again seen involving the medial left frontal cortex, without abnormal signal intensity on T2 or FLAIR. This is suggestive of artifact. Symmetric probable artifact also visualized on diffusion involving the anterior temporal lobes. Encephalomalacia/gliosis involving the left occipital lobe, consistent with an old infarct. There is a small chronic infarct again visualized involving the right temporal-occipital region. Chronic lacunar infarcts are identified within the right thalamus and right cerebral peduncle. Small chronic lacunar infarcts are noted within the bilateral cerebellar lobes. Patchy gliosis identified involving the right posterior frontal and parietal lobes, consistent with old infarcts. There are scattered foci of FLAIR hyperintensity within the cerebral white matter. There is no mass effect or restricted diffusion associated with these foci. This white matter disease is nonspecific as to etiology. Possible etiologies include chronic small vessel ischemic disease, foci of demyelination, post-traumatic change, and migraine headaches, as well as additional infectious, inflammatory and autoimmune etiologies. Mild magnetic susceptibility hemosiderin involving the left occipital infarct as well as an old infarct in the right posterior frontal lobe. Mild heterogeneous signal intensity of the roni, likely representing chronic changes. Cerebral ventricles: There is mild prominence of the ventricles and sulci, compatible with atrophy. Bones/joints: There is diffuse nonspecific T1 hypointensity of the skull. This can be associated with red marrow reconversion and marrow hyperplasia, although additional infiltrating pathology cannot be excluded. Paranasal sinuses: There is poor aeration of the frontal sinuses. The remaining paranasal sinuses are unremarkable. No air-fluid levels. Mastoid air cells: No mastoid effusion. Orbits: No acute abnormality visualized. Soft tissues: Unremarkable, as visualized. IMPRESSION: 1. No acute infarct. 2. Encephalomalacia/gliosis involving the left occipital lobe, consistent with an old infarct. There is a small chronic infarct again visualized involving the right temporal-occipital region. 3. Chronic lacunar infarcts are identified within the right thalamus and right cerebral peduncle. Small chronic lacunar infarcts are noted within the bilateral cerebellar lobes. 4. Patchy gliosis identified involving the right posterior frontal and parietal lobes, consistent with old infarcts. 5. Mild atrophy. 6. There are scattered foci of FLAIR hyperintensity within the cerebral white matter. This white matter disease is nonspecific as to etiology, as detailed above. 7. Additional findings described above. Electronically signed by: Kosta Vasquez On 09/23/2020 00:53:41 AM
[2020-09-23 01:00] VITALS: BP 150/74
--- NOTE | 2020-09-23 01:10 | REPVR ---
PROCEDURE INFORMATION: Exam: MR Angiogram Head Without Contrast, Arteries Exam date and time: 09/22/2020 9:31 PM Age: 50 years old Clinical indication: Weakness; Additional info: CVA TECHNIQUE: Imaging protocol: MR angiogram head without contrast. Exam focused on the arteries. COMPARISON: MRA BRAIN W/O CONTRAST 02/11/2020 2:11 PM FINDINGS: ANTERIOR CIRCULATION: Right internal carotid artery: Intracranial segment is patent with no significant stenosis. No aneurysm. Right middle cerebral artery: No occlusion or significant stenosis. No aneurysm. Right anterior cerebral artery: No occlusion or significant stenosis. No aneurysm. Left internal carotid artery: Intracranial segment is patent with no significant stenosis. No aneurysm. Left middle cerebral artery: No occlusion or significant stenosis. No aneurysm. Left anterior cerebral artery: No occlusion or significant stenosis. No aneurysm. POSTERIOR CIRCULATION: Right vertebral artery: A dominant right vertebral artery is identified. No significant stenosis or occlusion of the right vertebral artery. Left vertebral artery: Hypoplasia of the left vertebral artery, without occlusion. Basilar artery: No occlusion or significant stenosis. No aneurysm. Right posterior cerebral artery: Severe stenosis of the P1 segment of the right posterior cerebral artery, which has progressed. Additional stenoses identified of P3 and P4 segments of this vessel. No aneurysm. Left posterior cerebral artery: No occlusion or significant stenosis. No aneurysm. IMPRESSION: 1. Severe stenosis of the P1 segment of the right posterior cerebral artery, which has progressed. Additional stenoses identified of P3 and P4 segments of this vessel. 2. A dominant right vertebral artery is identified. 3. Additional findings described above. Electronically signed by: Kosta Vasquez On 09/23/2020 01:10:20 AM
[2020-09-23 01:15] VITALS: BP 122/70
[2020-09-23] MEDS: METOPROLOL TART 12.5 MG PER 1/2 TAB PO SCH ×3 (01:25→12:00)
--- NOTE | 2020-09-23 01:37 | REPVR ---
PROCEDURE INFORMATION: Exam: US Duplex Bilateral Extracranial Arteries Exam date and time: 09/23/2020 12:52 AM Age: 50 years old Clinical indication: Numbness / parasthesia; Left; Additional info: L sided numnbess / tingling TECHNIQUE: Imaging protocol: Real-time Duplex ultrasound scan of the bilateral carotid and vertebral arteries combining denise scale, color Doppler and spectral waveform analysis. Bilateral exam. COMPARISON: CT Head without contrast 09/22/2020 8:39 PM FINDINGS: Right common carotid artery: No occlusion or stenosis. Waveforms are normal. Right internal carotid artery: No occlusion or significant stenosis. Peak systolic velocity of 97.7 cm/s. Spectral broadening visualized. Mild hyperechogenicity of the wall of the internal carotid artery, without significant plaque. Right ICA/CCA ratio: 0.9. Right external carotid artery: No stenosis in the origin. Right vertebral artery: Antegrade flow. Left common carotid artery: No occlusion or stenosis. Waveforms are normal. Left internal carotid artery: No occlusion or significant stenosis. Peak systolic velocity of 92.5 cm/s. Spectral broadening visualized. Mild hyperechogenicity of the wall of the internal carotid artery, without significant plaque. Left ICA/CCA ratio: 0.9. Left external carotid artery: No stenosis in the origin. Left vertebral artery: Antegrade flow. IMPRESSION: 1. No significant carotid arterial stenosis. Spectral broadening visualized involving the bilateral internal carotid arteries, without significant elevation of flow velocity. 2. If further evaluation is clinically indicated, CTA or MRA is suggested. REFERENCES: SRU CRITERIA. The degree of internal carotid artery stenosis is based on criteria defined by the Society of Radiologists in Ultrasound (SRU). Normal is no stenosis. Mild is less than 50% stenosis. Moderate is 50-69% stenosis. Severe is greater than 69% stenosis to near occlusion. Near occlusion is a markedly narrowed lumen. Total occlusion is no detectable patent lumen. Electronically signed by: Kosta Vasquez On 09/23/2020 01:37:39 AM
[2020-09-23 04:00] VITALS: BP 121/80
[2020-09-23 05:55] LABS: BASO % 0.2 % (0.0-1.0); EOS # 0.1 10^3/uL (0.0-0.5); EOS % 2.6 % (0.0-3.0); HEMATOCRIT 29.9 % (36.0-47.0); HEMOGLOBIN 9.3 g/dl (12.0-15.5); LYMPH % 19.2 % (24.0-44.0); MEAN CORPUSCULAR HEMOGLOBIN 28.5 pg (27.0-33.0); MEAN CORPUSCULAR HGB CONC 31.1 g/dl (32.0-36.5); MEAN CORPUSCULAR VOLUME 91.7 fl (80.0-96.0); MONO # 0.4 10^3/uL (0.0-0.8); MONO % 7.5 % (0.0-5.0); NEUTROPHILS # 3.6 10^3/uL (1.5-8.5); NEUTROPHILS % 70.1 % (36.0-66.0); PLATELET COUNT, AUTOMATED 197 10^3/uL (150-450); RED BLOOD COUNT 3.26 10^6/uL (4.00-5.40); WHITE BLOOD COUNT 5.1 10^3/uL (4.0-10.0)
[2020-09-23 06:28] LABS: BLOOD UREA NITROGEN 14 MG/DL (7-18); CALCIUM LEVEL 8.3 MG/DL (8.5-10.1); CARBON DIOXIDE LEVEL 26 MEQ/L (21-32); CHLORIDE LEVEL 107 MEQ/L (98-107); CHOLESTEROL LEVEL 109 MG/DL (<200); CHOLESTEROL RISK RATIO 3.114 (<5); CREATININE FOR GFR 0.64 MG/DL (0.55-1.30); GLOMERULAR FILTRATION RATE > 60.0 (>51); GLUCOSE, FASTING 112 MG/DL (70-100); HDL CHOLESTEROL 35 MG/DL (>40); LDL CHOLESTEROL 57 MG/DL (<100); NON-HDL-C 74 MG/DL; POTASSIUM SERUM 3.7 MEQ/L (3.5-5.1); SODIUM LEVEL 138 MEQ/L (136-145); TRIGLYCERIDES LEVEL 87 MG/DL (<150)
[2020-09-23 08:00] VITALS: BP 131/71
--- NOTE | 2020-09-23 08:29 | ECGEPIP ---
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
[2020-09-23] MEDS ORDERED: CETIRIZINE (ZyrTEC) 10 MG TAB PO SCH (09:00)
[2020-09-23] MEDS ORDERED: CLOPIDOGREL 75 MG TAB PO SCH (09:00)
[2020-09-23] MEDS ORDERED: CYANOCOBALAMIN 500 MCG TAB PO SCH (09:00)
[2020-09-23] MEDS ORDERED: DIGOXIN 0.25 MG TAB PO SCH (09:00)
[2020-09-23] MEDS ORDERED: APIXABAN 5 MG TAB (ELIQUIS) PO SCH (09:00)
[2020-09-23] MEDS ORDERED: FERROUS SULFATE 325MG TAB PO SCH (09:00)
[2020-09-23] MEDS ORDERED: FOLIC ACID 1 MG TAB PO SCH (09:00)
[2020-09-23] MEDS ORDERED: ASPIRIN 325 MG TAB PO SCH (09:00)
[2020-09-23] MEDS ORDERED: ENTRESTO 24-26MG TABLET (SACUBITRIL/VALSARTAN) PO SCH (09:00)
[2020-09-23 12:00] VITALS: BP 135/81
--- NOTE | 2020-09-23 13:26 | DS.PDOC ---
Discharge Summary General Date of Admission Sep 22, 2020 at 20:11 Date of Discharge 09/23/20 Discharge Summary PROCEDURES PERFORMED DURING STAY: [None]. 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 HISTORY OF PRESENT ILLNESS: Patient is a 51-year-old female with a PMHx of Cor triatriatum (s/p repair as an ), A Fib (on Eliquis), Multiple CVAs (w/ residual right sided hemianopia and left side paresthesia), HFpEF / Diastolic CHF, Chronic HTN, Morbid obesity s/p gastric bypass, FLO, who presented to the hospital with worsening left-sided numbness and tingling. Patient reports that she chronically experiences left upper and lower extremity numbness and tingling. However, today, was worsened compared to her baseline. Patient reports that she has been compliant with her as was aspirin and Plavix. Today she was scheduled to receive a sleep study, however, experience symptoms and presented to the emergency room instead. Patient was recently admitted to the hospital on 08/25 and discharged on 08/26 after she was suspected of having a CVA. After extensive discussion with the patient, she was started on dual antiplatelet therapy as well as continued on Eliquis. Patient has followed up with neurology since she was discharged. Patient denies any nausea, vomiting, chest pain, shortness breath, cough, abdominal pain, constipation, diarrhea, or any recent fevers or chills. HOSPITAL COURSE: During hospital stay following issue addressed Acute on chronic paresthesia of LUE / LLE - possibly 2/2 CVA, possibly 2/2 TIA - Patient presented to the emergency room with worsening numbness and tingling of her left upper and lower extremity - Patient reports compliance with L [place] and dual platelet therapy - She remains hemodynamically stable - CT head 09/22: 1. No acute intracranial hemorrhage or acute territorial type infarct. 2. Stable encephalomalacia involving the left occipital lobe, consistent with an old infarct. 3. A small chronic infarct is again visualized involving the superior left cerebellar lobe. There is a stable chronic lacunar infarct within the right thalamus. 4. If further evaluation is clinically indicated, an MRI of the brain is recommended. - se MRI and MRA brain / duplex ultrasound carotid below - c/w Eliquis / ASA 325 / Plavix 75 / Atorvastatin Dr Tena was contacted by phone and he recommended to DC patient with follow- up with neurologist in 3-5 days Cor triatriatum - s/p repair as an A Fib - Patient is currently in sinus rhythm continue with rate and rhythm control with metoprolol and digoxin continue with full anticoagulation with Eliquis Multiple CVAs (w/ residual right sided hemianopia and left side paresthesia) - See above HFpEF / Diastolic CHF - Does not appear to have any exacerbation at this time - Currently not on any diuretic therapy DISCHARGE MEDICATIONS: Please see below. ALLERGIES: Please see below. PHYSICAL EXAMINATION ON DISCHARGE: VITAL SIGNS: Please see below. - General: Lying in bed, No acute distress, Speaking in full sentences, AAOx3 - HEENT: NC, AT, PERRLA - CVS: RRR, +S1S2 - Lungs: Fair air entry bilaterally, No appreciable wheezing / rales / rhonchi - Abdomen: Soft, Non-distended, Non-tender - Extremities: No lower extremity edema, No calf tenderness - Neuro: 5/5 strength at upper and lower extremities bilaterally; patient reports her left upper and lower extremities have decreased sensation compared to her right - Skin: No visible rashes LABORATORY DATA: Please see below. IMAGING: [facility] NAME: MIQUEL GRIJALVA DATE OF : 1970 BUSINESS NUMBER: [id number] AGE: 50 SEX: F REPORT #: [id number] ROOM: [facility] TECHNOLOGIST[facility] DOCTOR: ANDREW DUKE MD Ordered for Date&Time: 09/22/202130 cc: [~ rep ct ivnm] Service Date&Time: This report is in Signed status. Interpretation performed by [facility]. Thank you for having your radiology procedures performed at [facility] RADIOLOGY REPORT Date&Time printed: [~ rep prt dt last] [~ rep prt tm last] Page 2 of 2 [place] [address] RADIOLOGY REPORT This report is in Signed status. Interpretation performed by [facility]. Thank you for having your radiology procedures performed at [facility] RADIOLOGY REPORT Date&Time printed: [~ rep prt dt last] [~ rep prt tm last] Page 1 of 1 PROCEDURE INFORMATION: Exam: MR Angiogram Head Without Contrast, Arteries Exam date and time: 09/22/2020 9:31 PM Age: 50 years old Clinical indication: Weakness; Additional info: CVA TECHNIQUE: Imaging protocol: MR angiogram head without contrast. Exam focused on the arteries. COMPARISON: MRA BRAIN W/O CONTRAST 02/11/2020 2:11 PM FINDINGS: ANTERIOR CIRCULATION: Right internal carotid artery: Intracranial segment is patent with no significant stenosis. No aneurysm. Right middle cerebral artery: No occlusion or significant stenosis. No aneurysm. Right anterior cerebral artery: No occlusion or significant stenosis. No aneurysm. Left internal carotid artery: Intracranial segment is patent with no significant stenosis. No aneurysm. Left middle cerebral artery: No occlusion or significant stenosis. No aneurysm. Left anterior cerebral artery: No occlusion or significant stenosis. No aneurysm. POSTERIOR CIRCULATION: Right vertebral artery: A dominant right vertebral artery is identified. No significant stenosis or occlusion of the right vertebral artery. Left vertebral artery: Hypoplasia of the left vertebral artery, without occlusion. Basilar artery: No occlusion or significant stenosis. No aneurysm. Right posterior cerebral artery: Severe stenosis of the P1 segment of the right posterior cerebral artery, which has progressed. Additional stenoses identified of P3 and P4 segments of this vessel. No aneurysm. Left posterior cerebral artery: No occlusion or significant stenosis. No aneurysm. IMPRESSION: 1. Severe stenosis of the P1 segment of the right posterior cerebral artery, which has progressed. Additional stenoses identified of P3 and P4 segments of this vessel. 2. A dominant right vertebral artery is identified. 3. Additional findings described above. Electronically signed by: Kosta Almodovar On 09/23/2020 01:10:20 AM DD: KOSTA ALMODOVAR MD 09/22/202130 DT: JANET 09/23/20109 DS: DOROTHY 09/23/20109 [~ rep ct labl] [facility] NAME: MIQUEL GRIJALVA DATE OF : 1970 BUSINESS NUMBER: [id number] AGE: 50 SEX: F REPORT #: [id number] ROOM: [facility] INP TECHNOLOGIST: [id number] DOCTOR: ANDREW DUKE MD Ordered for Date&Time: 09/22/202130 cc: [~ rep ct ivnm] Service Date&Time: This report is in Signed status. Interpretation performed by [facility]. Thank you for having your radiology procedures performed at [facility] RADIOLOGY REPORT Date&Time printed: [~ rep prt dt last] [~ rep prt tm last] Page 2 of [address] [address] RADIOLOGY REPORT This report is in Signed status. Interpretation performed by [facility]. Thank you for having your radiology procedures performed at [facility] RADIOLOGY REPORT Date&Time printed: [~ rep prt dt last] [~ rep prt tm last] Page 1 of 1 PROCEDURE INFORMATION: Exam: MR Head Without Contrast Exam date and time: 09/22/2020 9:31 PM Age: 50 years old Clinical indication: Weakness, extremity; Bilateral; Additional info: CVA TECHNIQUE: Imaging protocol: MR of the head without contrast. COMPARISON: MRI-Brain without Contrast 08/25/2020 10:02 AM FINDINGS: Brain: No restricted diffusion within the brain to suggest an acute infarct. Increased signal intensity is again seen involving the medial left frontal cortex, without abnormal signal intensity on T2 or FLAIR. This is suggestive of artifact. Symmetric probable artifact also visualized on diffusion involving the anterior temporal lobes. Encephalomalacia/gliosis involving the left occipital lobe, consistent with an old infarct. There is a small chronic infarct again visualized involving the right temporal-occipital region. Chronic lacunar infarcts are identified within the right thalamus and right cerebral peduncle. Small chronic lacunar infarcts are noted within the bilateral cerebellar lobes. Patchy gliosis identified involving the right posterior frontal and parietal lobes, consistent with old infarcts. There are scattered foci of FLAIR hyperintensity within the cerebral white matter. There is no mass effect or restricted diffusion associated with these foci. This white matter disease is nonspecific as to etiology. Possible etiologies include chronic small vessel ischemic disease, foci of demyelination, post-traumatic change, and migraine headaches, as well as additional infectious, inflammatory and autoimmune etiologies. Mild magnetic susceptibility hemosiderin involving the left occipital infarct as well as an old infarct in the right posterior frontal lobe. Mild heterogeneous signal intensity of the roni, likely representing chronic changes. Cerebral ventricles: There is mild prominence of the ventricles and sulci, compatible with atrophy. Bones/joints: There is diffuse nonspecific T1 hypointensity of the skull. This can be associated with red marrow reconversion and marrow hyperplasia, although additional infiltrating pathology cannot be excluded. Paranasal sinuses: There is poor aeration of the frontal sinuses. The remaining paranasal sinuses are unremarkable. No air-fluid levels. Mastoid air cells: No mastoid effusion. Orbits: No acute abnormality visualized. Soft tissues: Unremarkable, as visualized. IMPRESSION: 1. No acute infarct. 2. Encephalomalacia/gliosis involving the left occipital lobe, consistent with an old infarct. There is a small chronic infarct again visualized involving the right temporal-occipital region. 3. Chronic lacunar infarcts are identified within the right thalamus and right cerebral peduncle. Small chronic lacunar infarcts are noted within the bilateral cerebellar lobes. 4. Patchy gliosis identified involving the right posterior frontal and parietal lobes, consistent with old infarcts. 5. Mild atrophy. 6. There are scattered foci of FLAIR hyperintensity within the cerebral white matter. This white matter disease is nonspecific as to etiology, as detailed above. 7. Additional findings described above. Electronically signed by: Kosta Almodovar On 09/23/2020 00:53:41 AM DD: KOSTA ALMODOVAR MD 09/22/202130 DT: JANET 09/23/2052 DS: DOROTHY 09/23/2052 [~ rep ct labl] PROGNOSIS: Fair ACTIVITY: [As tolerated]. DIET: Cardiac DISPOSITION: . Home ITEMS TO FOLLOWUP ON ON OUTPATIENT: Follow-up with neurologist in 3-5 days DISCHARGE CONDITION: [Stable]. TIME SPENT ON DISCHARGE: Greater than 30 minutes. Vital Signs/I&Os Vital Signs Date Time Temp Pulse Resp B/P (MAP) Pulse Ox O2 Delivery O2 Flow Rate FiO2 09/23/20 12:00 97.8 80 20 135/81 (99) 97 Room Air I&O- Last 24 Hours up to 6 AM 09/23/20 06:00 Intake Total 0 ml Output Total 0 ml Balance 0 ml Laboratory Data Labs 24H Laboratory Tests 2 09/22/20 20:38: Immature Granulocyte % (Auto) 0.3, Neutrophils (%) (Auto) 77.8H, Lymphocytes (%) (Auto) 12.6L, Monocytes (%) (Auto) 7.1H, Eosinophils (%) (Auto) 1.9, Basophils (%) (Auto) 0.3, Neutrophils # (Auto) 5.0, Lymphocytes # (Auto) 0.8L, Monocytes # (Auto) 0.5, Eosinophils # (Auto) 0.1, Basophils # (Auto) 0.0, Nucleated Red Blood Cells % (auto) 0.0, Prothrombin Time 17.1H, Prothromb Time International Ratio 1.36, Activated Partial Thromboplast Time 36.1, Anion Gap 5L, Glomerular Filtration Rate > 60.0, Calcium Level 8.7, Total Creatine Kinase 41, Creatine Kinase MB < 1.0, Creatine Kinase MB Relative Index 2.44, Troponin I < 0.02, Procalcitonin <0.05 09/22/20 21:43: Coronavirus (COVID-19)(PCR) NEGATIVE 09/23/20 05:42: Immature Granulocyte % (Auto) 0.4, Neutrophils (%) (Auto) 70.1H, Lymphocytes (%) (Auto) 19.2L, Monocytes (%) (Auto) 7.5H, Eosinophils (%) (Auto) 2.6, Basophils (%) (Auto) 0.2, Neutrophils # (Auto) 3.6, Lymphocytes # (Auto) 1.0L, Monocytes # (Auto) 0.4, Eosinophils # (Auto) 0.1, Basophils # (Auto) 0.0, Nucleated Red Blood Cells % (auto) 0.0, Anion Gap 5L, Glomerular Filtration Rate > 60.0, Calcium Level 8.3L, Magnesium Level 2.0, Triglycerides Level 87, Total Cholesterol 109, LDL Cholesterol 57, Non-HDL Cholesterol (LDL + VLDL) 74, Total HDL Cholesterol 35L, Cholesterol/HDL Ratio 3.114 CBC/BMP Laboratory Tests 09/22/20 20:38 09/23/20 05:42 Discharge Medications Scheduled Apixaban (Eliquis) 5 Mg Tablet, 5 MG PO BID, (Reported) Aspirin (Aspirin) 325 Mg Tablet, 325 MG PO DAILY, (Reported) Atorvastatin Calcium (Atorvastatin Calcium) 40 Mg Tablet, 40 MG PO QHS, (Report ed) Cetirizine HCl (Cetirizine HCl) 10 Mg Tablet, 10 MG PO DAILY, (Reported) Cholecalciferol (Vitamin D3) (Vitamin D3) 50 Mcg Tablet, 50 MCG PO DAILY, (Reported) Clopidogrel Bisulfate (Plavix) 75 Mg Tablet, 75 MG PO DAILY, (Reported) Cyanocobalamin (Vitamin B-12) (Vitamin B-12) 1,000 Mcg Tablet, 1,000 MCG PO Q2D, (Reported) Digoxin (Digox) 250 Mcg Tablet, 250 MCG PO DAILY, (Reported) Ferrous Sulfate (Ferrous Sulfate) 325 Mg Tablet, 325 MG PO Q2D, (Reported) Folic Acid (Folic Acid) 1 Mg Tablet, 1 MG PO DAILY, (Reported) Metoprolol Succinate (Toprol Xl) 50 Mg Tab.er.24h, 50 MG PO DAILY, (Reported) Montelukast Sodium (Montelukast Sodium) 10 Mg Tablet, 10 MG PO QHS, (Reported) Pyridoxine HCl (Vitamin B6) (Vitamin B-6) 100 Mg Tablet, 100 MG PO DAILY, (Reported) Sacubitril/Valsartan (Entresto 24 mg-26 mg Tablet) 1 Each Tablet, 24 MG PO DAILY, (Reported) Allergies Coded Allergies: NUTS (Verified Allergy, Intermediate, Hives, 09/22/20) Olives (Verified Allergy, Intermediate, Hives, 09/22/20) Latex, Natural Rubber (Verified Allergy, Mild, Dermatitis, 09/22/20) Quinolones (Verified Allergy, Mild, HIVES, 09/22/20) clindamycin (Verified Allergy, Mild, HIVES, 09/22/20) codeine (Verified Allergy, Mild, HIVES, 09/22/20) erythromycin base (Verified Allergy, Mild, HIVES, 09/22/20) gentamicin (Verified Allergy, Mild, HIVES, 09/22/20) nitrofurantoin (Verified Allergy, Mild, HIVES, 09/22/20) sulfamethoxazole (Verified Allergy, Mild, HIVES, 09/22/20) trimethoprim (Verified Allergy, Mild, HIVES, 09/22/20) Penicillins (Verified Allergy, Unknown, RASH, 09/22/20) amoxicillin (Verified Allergy, Unknown, RASH, 09/22/20) vancomycin (Verified Adverse Reaction, Severe, JJ SYNDROME, 09/22/20) levofloxacin (Verified Adverse Reaction, Mild, itching, 09/22/20) JULIAN MCGOWAN DO Sep 23, 2020 13:26
[2020-09-23] MEDS ORDERED: MONTELUKAST 10 MG TAB PO SCH (21:00)
[2020-09-23] MEDS ORDERED: ATORVASTATIN 20 MG TAB PO SCH (21:00)
--- NOTE | 2020-09-25 07:44 | ECGEPIP ---
[facility] - ED Test Date: 2020-09-22 Pat Name: MIQUEL GRIJALVA Department: Room: [place] [address] Gender: Female E Learning Specialist: neema : 1970 Requested By: ANDREW Ball Order Number: [id number] Reading MD: Krystal Hamlin Measurements Intervals [place] Rate: 77 P: 45 MT: 190 QRS: 76 QRSD: 109 T: 125 QT: 398 QTc: 453 Interpretive Statements SINUS RHYTHM WITH OCCASIONAL VENTRICULAR PREMATURE COMPLEXES LOW QRS VOLTAGE IN PRECORDIAL LEADS POSSIBLE INFERIOR MYOCARDIAL INFARCTION, PROBABLY OLD MODERATE T-WAVE ABNORMALITY, CONSIDER ANTEROLATERAL ISCHEMIA DECREASED RATE 09/19/20 Electronically Signed on 09-25-2020 7:43:57 EST by Krystal Hamlin
== END 2020-09-23 17:47 | disposition home or self-care (01) ==
LOC: M ED 20:10 → M ED INP 20:11 → ENRESERV 23:00 → M PCU 09-23 00:56
PROVIDERS: ADMIT Internal Medicine; ATTEND Internal Medicine
DX: R20.2 Paresthesia of skin (principal); Q24.2 Cor triatriatum; I48.91 Unspecified atrial fibrillation; I11.9 Hypertensive heart disease without heart failure; Z86.73 Personal history of transient ischemic attack (TIA), and cerebral infarction without residual deficits; E66.01 Morbid (severe) obesity due to excess calories; Z98.84 Bariatric surgery status; G47.33 Obstructive sleep apnea (adult) (pediatric); I50.30 Unspecified diastolic (congestive) heart failure; Z79.01 Long term (current) use of anticoagulants; Z79.82 Long term (current) use of aspirin; Z91.010 Allergy to peanuts; Z91.040 Latex allergy status; Z88.1 Allergy status to other antibiotic agents; Z88.0 Allergy status to penicillin; Z88.5 Allergy status to narcotic agent; Z91.018 Allergy to other foods
CPT/HCPCS: 36415; 70450; 70544; 70551; 71045; 80048; 80061; 82550; 82553; 83735; 84145; 84484; 85025; 85610; 85730; 93005; 93041; 93880; 94760; 97116; 97161; 97165; 99285; U0002

== ENCOUNTER → 2020-11-03 | Outpatient (CLI) | payer SELFPAY ==
[~2020-11-03] MED LIST changes: +ASPI-559 PO; +CYAN100049 PO; +FERR1TAB8 PO
== END ==
LOC: M LABSMTC 13:42
PROVIDERS: ATTEND Pediatrics
DX: Z20.828 Contact with and (suspected) exposure to other viral communicable diseases (principal)

== ENCOUNTER → 2021-02-20 | Outpatient (REF) | payer OTHER, SELFPAY ==
[~2021-02-20] MED LIST changes: -ASPI-559 PO; +ASPI-569 PO; +ASPI325T3 PO; -ASPI81TAEC PO; +DOXY100T PO; +LISI10TA22; -LISI10TA4; +MONT10TA10 PO; -MONT5TAB2 PO
== END ==
LOC: M LAB REF 19:18
PROVIDERS: ATTEND Physician Assistant
DX: R30.0 Dysuria (principal)

== ENCOUNTER 2021-02-23 18:09 | Inpatient (IN) | payer OTHER, SELFPAY ==
[~2021-02-23] VITALS: Ht 157.5 cm; Wt 102.3 kg
[~2021-02-23 18:09] MED LIST changes: -DOXY100T PO
--- NOTE | 2021-02-23 18:57 | REPVR ---
PROCEDURE INFORMATION: Exam: CT Head Without Contrast Exam date and time: 02/23/2021 6:37 PM Age: 50 years old Clinical indication: Numbness / parasthesia; Left; Additional info: Left-sided numbness and tingling, history of CVA TECHNIQUE: Imaging protocol: Computed tomography of the head without contrast. Radiation optimization: All CT scans at this facility use at least one of these dose optimization techniques: automated exposure control; mA and/or kV adjustment per patient size (includes targeted exams where dose is matched to clinical indication); or iterative reconstruction. Other technique: STROKE PROTOCOL was implemented. COMPARISON: CT Head without contrast 09/22/2020 8:39 PM FINDINGS: Brain: Hypodense encephalomalacia/gliosis identified within the left occipital lobe, consistent with an old infarct. Chronic lacunar infarcts are visualized within the right thalamus and right cerebral peduncle. These findings are stable. A small area of hypodensity is identified in the right temporal-occipital region inferiorly, consistent with an old infarct and stable. There is a small area of probable encephalomalacia within the right posterior frontal lobe, consistent with an old infarct is stable. A low-lying right cerebellar tonsil is visualized. The white-denise differentiation is otherwise preserved demonstrating no acute territorial type infarct. No acute intracranial hemorrhage is visualized. There is no midline shift. Cerebral ventricles: There is mild prominence of the ventricles and sulci, compatible with atrophy. Bones/joints: The calvarium demonstrates no evidence for a depressed fracture. Hyperostosis frontalis interna. Paranasal sinuses: Visualized sinuses are unremarkable. No fluid levels. Mastoid air cells: No mastoid effusion. Soft tissues: Unremarkable. IMPRESSION: 1. No acute intracranial hemorrhage or acute territorial type infarct. 2. Encephalomalacia/gliosis identified within the left occipital lobe, consistent with an old infarct. Chronic lacunar infarcts are visualized within the right thalamus and right cerebral peduncle. These findings are stable. 3. A small area of hypodensity is identified in the right temporal-occipital region inferiorly, consistent with an old infarct and stable. 4. There is a small area of probable encephalomalacia within the right posterior frontal lobe, consistent with an old infarct is stable. 5. Mild atrophy. 6. If further evaluation is clinically indicated, an MRI of the brain is recommended. ASSESSMENT: [place] Stroke Program Early CT Score (ASPECTS) = 10 Electronically signed by: Kosta Vasquez On 02/23/2021 18:57:00 PM
[2021-02-23 19:28] LABS: BASO % 0.6 % (0.0-1.0); EOS # 0.1 10^3/uL (0.0-0.5); HEMATOCRIT 35.3 % (36.0-47.0); HEMOGLOBIN 10.6 g/dl (12.0-15.5); LYMPH # 0.9 10^3/uL (1.5-5.0); LYMPH % 16.4 % (24.0-44.0); MEAN CORPUSCULAR HEMOGLOBIN 26.6 pg (27.0-33.0); MEAN CORPUSCULAR VOLUME 88.7 fl (80.0-96.0); MONO # 0.4 10^3/uL (0.0-0.8); MONO % 6.6 % (2.0-8.0); NEUTROPHILS % 73.7 % (36.0-66.0); PLATELET COUNT, AUTOMATED 206 10^3/uL (150-450); RED BLOOD COUNT 3.98 10^6/uL (4.00-5.40); WHITE BLOOD COUNT 5.4 10^3/uL (4.0-10.0)
--- NOTE | 2021-02-23 19:41 | REP ---
INDICATION: CVA. COMPARISON: 09/22/2020 TECHNIQUE: Portable FINDINGS: The technique utilized in obtaining the radiograph has magnified the cardiac silhouette and accentuated the interstitial markings. The superior mediastinal structures are midline. There is cardiomegaly accentuated by technique status quo.. The diaphragmatic surfaces of the lungs are regular, and the costophrenic angles are clear. The pulmonary espinoza are clear. The imaged osseous structures are intact. IMPRESSION: Cardiomegaly without evidence of acute cardiopulmonary disease. <Electronically signed by Lokesh Honeycutt > 02/23/21 193
[2021-02-23 19:47] LABS: INR 1.07; PROTHROMBIN TIME 14.1 SECONDS (12.5-14.3)
[2021-02-23 19:48] LABS: PARTIAL THROMBOPLASTIN TIME 29.9 SECONDS (24.2-38.5)
[2021-02-23 19:54] LABS: BLOOD UREA NITROGEN 11 MG/DL (7-18); CALCIUM LEVEL 8.8 MG/DL (8.5-10.1); CARBON DIOXIDE LEVEL 29 MEQ/L (21-32); CHLORIDE LEVEL 107 MEQ/L (98-107); CK-MB VALUE MASS < 1.0 NG/ML (<3.6); CPK CREATINE PHOSPHOKINASE 45 U/L (26-192); CREATININE FOR GFR 0.63 MG/DL (0.55-1.30); GLOMERULAR FILTRATION RATE > 60.0 (>51); GLUCOSE, FASTING 133 MG/DL (70-100); MB/CK RELATIVE INDEX 2.22 (< OR =4); POTASSIUM SERUM 4.2 MEQ/L (3.5-5.1); SODIUM LEVEL 139 MEQ/L (136-145); TROPONIN I < 0.02 NG/ML (< 0.10)
[2021-02-23] MEDS ORDERED: DOXY100T PO (20:28)
[2021-02-23] MEDS ORDERED: ATORVASTATIN 20 MG TAB PO SCH (21:00)
[2021-02-23] MEDS ORDERED: MONTELUKAST 10 MG TAB PO SCH (21:00)
[2021-02-23] MEDS ORDERED: MAALOX 30 ML SUSP *UDC PO PRN (22:05)
[2021-02-23] MEDS ORDERED: ACETAMINOPHEN TAB 650MG DOSE (2X325MG) PO PRN (22:05)
[2021-02-23] MEDS ORDERED: MOM 30ML SUSPENSION UDC PO PRN (22:05)
--- NOTE | 2021-02-23 22:23 | HPEPDOC ---
[facility] Medical History & Physical Date of Admission February 23, 2021 Date of Service: February 23, 2021 History and Physical CHIEF COMPLAINT: Left-sided tingling HISTORY OF PRESENT ILLNESS: 50-year-old female history of atrial fibrillation eliquis, CHF, 3 CVAs in the past who presents because she noticed increased left-sided tingling of her arms and legs over the past 24 hours and she is concerned about having another stroke she denies any weakness in her upper or lower extremities different from her baseline. She feels otherwise her normal self. She denies changes to her vision denies a headache she denies gait imbalance denies feeling weak or dizzy denies any chest pain or shortness of breath. Neurology Dr. Crystal was contacted from the emergency department who recommended admission for observation and obtaining MRI and MRA and if positive to pursue stroke workup. 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 REVIEW OF SYSTEMS: 10 point review of systems complete all negative otherwise stated in HPI HOME MEDICATIONS: Please see below. PHYSICAL EXAMINATION: Constitutional: Awake and alert, in no apparent distress ENT: Sclera are clear. Mucosa is moist. Respiratory: Lungs CTA bilaterally. No respiratory distress. Cardiovascular: Irregular heart rate Gastrointestinal: Abdomen is soft, non distended, non tender, BS present. Musculoskeletal: No lower extremity edema. mental status: The patient is awake, alert, oriented to name, location, and date. Cranial nerves: Pupils are equal, round, and reactive to light. Smile is symmetrical. Tongue is midline. Intact sensation on both sides of face. Motor: At least 4+/5 in both upper and lower extremities without any drifting Sensory: Intact to sensation bilaterally. Reflexes: Symmetrical, non-hyperreflexic. Not pathological. Coordination: [id number] grossly intact. LABORATORY DATA: See below. IMAGING: See chart CT head: No acute intracranial hemorrhage or acute territorial type infarct MICROBIOLOGY: Please see below. ASSESSMENT/PLAN # Left sided paresthesia: Admit for obs on tele. CT head No acute intracranial hemorrhage or acute territorial type infarct. Dr Crystal Neuro contacted from the ED recommends obtaining MRI/MRA and if positive to persue stroke workup. Already on ASA/Plaivx/Elquis. PT eval. # A Fib: Continue Eliquis. Rate controlled. 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 # HFpEF / Diastolic CHF: Continue home meds. # Hypertension: Continue home meds. Monitor and titrate # Morbid obesity s/p gastric bypass: BMi 41, complicated care. # DVT prophylaxis: Eliquis A Yousef Hospitalist Vital Signs Vital Signs Date Time Temp Pulse Resp B/P (MAP) Pulse Ox O2 Delivery O2 Flow Rate FiO2 02/23/21 20:24 75 100 02/23/21 20:15 146/60 (88) 02/23/21 20:09 18 Room Air 02/23/21 18:20 98.3 Laboratory Data Labs 24H Laboratory Tests 2 02/23/21 18:56: Immature Granulocyte % (Auto) 0.7, Neutrophils (%) (Auto) 73.7H, Lymphocytes (%) (Auto) 16.4L, Monocytes (%) (Auto) 6.6, Eosinophils (%) (Auto) 2.0, Basophils (%) (Auto) 0.6, Neutrophils # (Auto) 4.0, Lymphocytes # (Auto) 0.9L, Monocytes # (Auto) 0.4, Eosinophils # (Auto) 0.1, Basophils # (Auto) 0.0, Nucleated Red Blood Cells % (auto) 0.0, Prothrombin Time 14.1H, Prothromb Time International Ratio 1.07, Activated Partial Thromboplast Time 29.9, Anion Gap 3L, Glomerular Filtration Rate > 60.0, Calcium Level 8.8, Total Creatine Kinase 45, Creatine Kinase MB < 1.0, Creatine Kinase MB Relative Index 2.22, Troponin I < 0.02 CBC/BMP Laboratory Tests 02/23/21 18:56 Home Medications Scheduled Apixaban (Eliquis) 5 Mg Tablet, 5 MG PO BID Aspirin (Aspirin) 325 Mg Tablet, 325 MG PO DAILY Atorvastatin Calcium (Atorvastatin Calcium) 40 Mg Tablet, 40 MG PO QHS Cetirizine HCl (Cetirizine HCl) 10 Mg Tablet, 10 MG PO DAILY Clopidogrel Bisulfate (Plavix) 75 Mg Tablet, 75 MG PO DAILY Cyanocobalamin (Vitamin B-12) (Vitamin B-12) 1,000 Mcg Tablet, 1,000 MCG PO Q2D Digoxin (Digox) 250 Mcg Tablet, 250 MCG PO DAILY Doxycycline Hyclate (Doxycycline Hyclate) 100 Mg Tablet, 100 MG PO BID FILLED 02/19/21 FOR 7 DAYS Folic Acid (Folic Acid) 1 Mg Tablet, 1 MG PO DAILY Metoprolol Succinate (Toprol Xl) 50 Mg Tab.er.24h, 50 MG PO DAILY Montelukast Sodium (Montelukast Sodium) 10 Mg Tablet, 10 MG PO QHS Pyridoxine HCl (Vitamin B6) (Vitamin B-6) 100 Mg Tablet, 100 MG PO DAILY Sacubitril/Valsartan (Entresto 24 mg-26 mg Tablet) 1 Each Tablet, 1 TAB PO DAILY Allergies Coded Allergies: NUTS (Verified Allergy, Intermediate, Hives, 09/22/20) Olives (Verified Allergy, Intermediate, Hives, 09/22/20) Latex, Natural Rubber (Verified Allergy, Mild, Dermatitis, 09/22/20) Quinolones (Verified Allergy, Mild, HIVES, 09/22/20) clindamycin (Verified Allergy, Mild, HIVES, 09/22/20) codeine (Verified Allergy, Mild, HIVES, 09/22/20) erythromycin base (Verified Allergy, Mild, HIVES, 09/22/20) gentamicin (Verified Allergy, Mild, HIVES, 09/22/20) nitrofurantoin (Verified Allergy, Mild, HIVES, 09/22/20) sulfamethoxazole (Verified Allergy, Mild, HIVES, 09/22/20) trimethoprim (Verified Allergy, Mild, HIVES, 09/22/20) Penicillins (Verified Allergy, Unknown, RASH, 09/22/20) amoxicillin (Verified Allergy, Unknown, RASH, 09/22/20) vancomycin (Verified Adverse Reaction, Severe, JJ SYNDROME, 09/22/20) levofloxacin (Verified Adverse Reaction, Mild, itching, 09/22/20) A-FIB/CHADSVASC A-FIB History Current/History of A-Fib/PAF?: Yes Current PO Anticoag Therapy: Yes YOUSEF,MILES Wiggins MD February 23, 2021 22:23
--- NOTE | 2021-02-23 23:01 | REPVR ---
PROCEDURE INFORMATION: Exam: MR Head Without Contrast Exam date and time: 02/23/2021 10:27 PM Age: 50 years old Clinical indication: Visual disturbance; Additional info: CVA TECHNIQUE: Imaging protocol: MR of the head without contrast. COMPARISON: MRI-Brain without Contrast 09/22/2020 11:54 PM FINDINGS: Brain: No restricted diffusion within the brain to suggest an acute infarct. Encephalomalacia/gliosis involving the left occipital lobe, consistent with an old infarct. There is a small chronic infarct again visualized involving the right temporal-occipital region. Chronic lacunar infarcts are identified within the right thalamus and right cerebral peduncle, as well as of the in the bilateral cerebellar lobes. Patchy gliosis again visualized involving the right posterior frontal and parietal lobes, consistent with old infarcts. There is an associated small area of encephalomalacia within the right posterior frontal lobe. There are scattered foci of FLAIR hyperintensity within the cerebral white matter. There is no mass effect or restricted diffusion associated with these foci. This white matter disease is nonspecific as to etiology. Possible etiologies include chronic small vessel ischemic disease, foci of demyelination, post-traumatic change, and migraine headaches, as well as additional infectious, inflammatory and autoimmune etiologies. Mild magnetic susceptibility hemosiderin involving the left occipital infarct as well as an old infarct in the right posterior frontal lobe. T2 hyperintensity is identified within the roni. Differential considerations include chronic ischemic change, demyelination, and osmotic demyelination syndrome. Cerebral ventricles: There is mild prominence of the ventricles and sulci, compatible with atrophy. Bones/joints: There is diffuse nonspecific T1 hypointensity of the skull again visualize. This can be associated with red marrow reconversion and marrow hyperplasia, although additional infiltrating pathology cannot be excluded. Paranasal sinuses: Normal as visualized. No acute sinusitis. Mastoid air cells: Minimal effusions within right mastoid air cells. Orbital cavity: Unremarkable. Soft tissues: Unremarkable, as visualized. IMPRESSION: 1. No acute infarct. 2. Encephalomalacia/gliosis involving the left occipital lobe, consistent with an old infarct. There is a small chronic infarct again visualized involving the right temporal-occipital region. Chronic lacunar infarcts are identified within the right thalamus and right cerebral peduncle, as well as of the in the bilateral cerebellar lobes. 3. Patchy gliosis again visualized involving the right posterior frontal and parietal lobes, consistent with old infarcts. There is an associated small area of encephalomalacia within the right posterior frontal lobe. 4. Mild magnetic susceptibility hemosiderin associated with old infarcts in the left occipital lobe and right posterior frontal lobe. 5. There are scattered foci of FLAIR hyperintensity within the cerebral white matter. This white matter disease is nonspecific as to etiology, as detailed above. 6. Mild atrophy. 7. Additional findings described above. Electronically signed by: Kosta Vasquez On 02/23/2021 23:00:43 PM
--- NOTE | 2021-02-23 23:34 | REPVR ---
PROCEDURE INFORMATION: Exam: MRA Head Without Contrast; Arteriography Exam date and time: 02/23/2021 10:27 PM Age: 50 years old Clinical indication: Vertigo; Additional info: CVA TECHNIQUE: Imaging protocol: Magnetic resonance angiography head without contrast. Exam focused on the arteries. COMPARISON: MRA BRAIN W/O CONTRAST 09/22/2020 11:54 PM FINDINGS: ANTERIOR CIRCULATION: Right internal carotid artery: Intracranial segment is patent with no significant stenosis. No aneurysm. Right middle cerebral artery: No occlusion or significant stenosis. No aneurysm. Right anterior cerebral artery: No occlusion or significant stenosis. No aneurysm. Left internal carotid artery: Intracranial segment is patent with no significant stenosis. No aneurysm. Left middle cerebral artery: No occlusion or significant stenosis. No aneurysm. Left anterior cerebral artery: No significant stenosis or occlusion of the left anterior cerebral artery, as visualized. This vessel extends out of the field of view of this study. POSTERIOR CIRCULATION: Right vertebral artery: A dominant right vertebral artery is identified. No significant stenosis or occlusion of the right vertebral artery. Left vertebral artery: Hypoplasia of the left vertebral artery, without occlusion. Basilar artery: No occlusion or significant stenosis. No aneurysm. Right posterior cerebral artery: There is occlusion of the P1 segment of the right posterior cerebral artery, which is a progression. The remaining right [employer] is patent. The right posterior communicating artery is patent. Left posterior cerebral artery: No occlusion or significant stenosis. No aneurysm. IMPRESSION: 1. There is occlusion of the P1 segment of the right posterior cerebral artery, which is a progression. 2. A dominant right vertebral artery is identified. 3. Additional findings described above. Electronically signed by: Kosta Vasquez On 02/23/2021 23:33:53 PM
[2021-02-24 00:14] LABS: RSV AMPLIFICATION NEGATIVE (NEGATIVE)
[2021-02-24] MEDS: APIXABAN 5 MG TAB (ELIQUIS) PO SCH ×2 (01:35→09:25)
[2021-02-24 04:45] VITALS: BP 156/81
[2021-02-24 07:18] LABS: HEMOGLOBIN 9.9 g/dl (12.0-15.5); MEAN CORPUSCULAR HEMOGLOBIN 27.3 pg (27.0-33.0); MEAN CORPUSCULAR HGB CONC 30.9 g/dl (32.0-36.5); MEAN CORPUSCULAR VOLUME 88.2 fl (80.0-96.0); PLATELET COUNT, AUTOMATED 188 10^3/uL (150-450); RED BLOOD COUNT 3.63 10^6/uL (4.00-5.40); WHITE BLOOD COUNT 5.1 10^3/uL (4.0-10.0)
[2021-02-24 07:50] LABS: ALT/SGPT 28 U/L (12-78); BILIRUBIN,TOTAL 0.4 MG/DL (0.2-1.0); BLOOD UREA NITROGEN 14 MG/DL (7-18); CALCIUM LEVEL 8.7 MG/DL (8.5-10.1); CARBON DIOXIDE LEVEL 28 MEQ/L (21-32); CHLORIDE LEVEL 110 MEQ/L (98-107); CREATININE FOR GFR 0.61 MG/DL (0.55-1.30); GLOMERULAR FILTRATION RATE > 60.0 (>51); GLUCOSE, FASTING 168 MG/DL (70-100); MAGNESIUM LEVEL 2.1 MG/DL (1.8-2.4); SODIUM LEVEL 142 MEQ/L (136-145); TOTAL PROTEIN 6.8 GM/DL (6.4-8.2)
[2021-02-24 08:12] LABS: FERRITIN 11 NG/ML (8-252); IRON (FE) 24 UG/DL (50-170); PERCENT SATURATION 6.8 % (13.2-45.0); TOTAL IRON BINDING CAPACITY 352 UG/DL (250-450)
[2021-02-24] MEDS ORDERED: ASPIRIN 325 MG TAB PO SCH (09:00)
[2021-02-24] MEDS ORDERED: CLOPIDOGREL 75 MG TAB PO SCH (09:00)
[2021-02-24] MEDS ORDERED: DIGOXIN 0.25 MG TAB PO SCH (09:00)
[2021-02-24] MEDS ORDERED: METOPROLOL SUCC (TopROL XL) 50MG **XL** TAB PO SCH (09:00)
[2021-02-24] MEDS ORDERED: ENTRESTO 24-26MG TABLET (SACUBITRIL/VALSARTAN) PO SCH (09:00)
[2021-02-24] MEDS: DOCUSATE SODIUM 100MG CAPSULE PO SCH ×2 (09:00→09:25)
[2021-02-24] MEDS ORDERED: CETIRIZINE (ZyrTEC) 10 MG TAB PO SCH (09:00)
[2021-02-24 09:25] VITALS: BP 133/85
[2021-02-24 10:01] LABS: HEMOGLOBIN A1c 5.3 %
--- NOTE | 2021-02-24 20:19 | ECGEPIP ---
[facility] - ED Test Date: 2021-02-23 Pat Name: MIQUEL GRIJALVA Department: Room: [place] [address] Gender: Female Program Medical Director: BILLY : 1970 Requested By: ANDREW Ball Order Number: [id number] Reading MD: Krystal Hamlin Measurements Intervals [place] Rate: 76 P: 34 CA: 190 QRS: 73 QRSD: 100 T: 229 QT: 406 QTc: 456 Interpretive Statements Normal sinus rhythm T wave abnormality, consider ischemia decreased ectopy 09/23/20 Electronically Signed on 02-24-2021 20:19:18 EDT by Krystal Hamlin
--- NOTE | 2021-02-26 19:12 | DS.PDOC ---
Discharge Summary General Date of Admission February 23, 2021 at 22:05 Date of Discharge Feb 24 2021 and 11:00 AM Primary Care Physician: BRENNA CHAVEZ DO Attending Physician: ANDREE BRANDON MD Specialist/Consultants Involve: LILI POPE MD Discharge Summary PROCEDURES PERFORMED DURING STAY: None. ADMITTING DIAGNOSES: 1. Left-sided paresthesia. DISCHARGE DIAGNOSES: 1. Left-sided paresthesia. COMPLICATIONS/CHIEF COMPLAINT: Left Sided Numbness. HISTORY OF PRESENT ILLNESS: This is a 50-year-old female with a past medical history of three cerebrovascular accidents in the past January 2020, August 2020 and September 2020, one of which was a stroke and the other 2 TIAs, atrial fibrillation currently treated with elliquis presents to the ED with increased left-sided tingling of her arms and legs started at 3 AM in the morning and l asted on waking up as well which concerned her for having another stroke. She denies weakness more than her baseline or any symptoms on the left side. Patient denies any headache/ vision changes/ any facial deviation/loss of bowel or bladder control. HOSPITAL COURSE: In the ED patient got a head CT without contrast on which active stroke was ruled out. As per the patient she has been compliant with her anticoagulation medications. Neurology Dr. Pope was consulted who recommended admission for observation and obtaining an MRI and MRA. DISCHARGE MEDICATIONS: Please see below. ALLERGIES: Please see below. PHYSICAL EXAMINATION ON DISCHARGE: VITAL SIGNS: Please see below. GENERAL: Awake and alert, in no apparent distress HEENT: Sclera are clear. Mucosa is moist CARDIOVASCULAR EXAMINATION: Irregular heart rate. No murmurs appreciated RESPIRATORY EXAMINATION: Lungs CTA bilaterally. No respiratory distress ABDOMINAL EXAMINATION: Abdomen is soft, nondistended, nontender, bowel sounds present EXTREMITIES: No lower extremity edema NEUROLOGICAL EXAMINATION: Is good motor strength 4+ over 5 in both upper and lower extremities LABORATORY DATA: Please see below. IMAGING: Head CT without contrast done on 02/23/2021:1. No acute intracranial hemorrhage or acute territorial type infarct. 2. Encephalomalacia/gliosis identified within the left occipital lobe, consistent with an old infarct. Chronic lacunar infarcts are visualized within the right thalamus and right cerebral peduncle. These findings are stable. 3. A small area of hypodensity is identified in the right temporal-occipital region inferiorly, consistent with an old infarct and stable. 4. There is a small area of probable encephalomalacia within the right posterior frontal lobe, consistent with an old infarct is stable. 5. Mild atrophy. 6. If further evaluation is clinically indicated, an MRI of the brain is recommended. [facility] Stroke Program Early CT Score (ASPECTS) = 10 MRI brain without contrast done on . No acute infarct. 2. Encephalomalacia/gliosis involving the left occipital lobe, consistent with an old infarct. There is a small chronic infarct again visualized involving the right temporal-occipital region. Chronic lacunar infarcts are identified within the right thalamus and right cerebral peduncle, as well as of the in the bilateral cerebellar lobes. 3. Patchy gliosis again visualized involving the right posterior frontal and parietal lobes, consistent with old infarcts. There is an associated small area of encephalomalacia within the right posterior frontal lobe. 4. Mild magnetic susceptibility hemosiderin associated with old infarcts in the left occipital lobe and right posterior frontal lobe. 5. There are scattered foci of FLAIR hyperintensity within the cerebral white matter. This white matter disease is nonspecific as to etiology, as detailed above. 6. Mild atrophy. 7. Additional findings described above. PROGNOSIS: Fair ACTIVITY: As tolerated. DIET: Regular DISCHARGE PLAN: Patient was ruled out for any active stroke. She however needs a follow-up with her neurologist Dr. Sales, her PCP Dr. Brenna Chavez and her outbound telemarketing representative Dr. Malhotra in the next 2-7 days. Patient should continue to be calm pliant with her anticoagulant medications. DISCHARGE INSTRUCTIONS: 1. Patient asked to report to the ED in case of recurrence /worsening of symptoms. ITEMS TO FOLLOWUP ON ON OUTPATIENT: 1. Triple anticoagulation therapy-risk of bleeding 2. A colonoscopy to assess for any source of GI bleed leading to iron deficiency anemia 3. Vitamin B12 levels, vitamin B6 levels, vitamin D levels and folic acid levels because of her gastric bypass. DISCHARGE CONDITION: Stable. TIME SPENT ON DISCHARGE: Greater than 40 minutes. Vital Signs/I&Os Vital Signs Date Time Temp Pulse Resp B/P (MAP) Pulse Ox O2 Delivery O2 Flow Rate FiO2 02/24/21 09:25 80 133/85 02/24/21 04:45 18 96 Room Air 02/23/21 18:20 98.3 Laboratory Data Labs 24H Laboratory Tests 2 02/23/21 18:56: Immature Granulocyte % (Auto) 0.7, Neutrophils (%) (Auto) 73.7H, Lymphocytes (%) (Auto) 16.4L, Monocytes (%) (Auto) 6.6, Eosinophils (%) (Auto) 2.0, Basophils (%) (Auto) 0.6, Neutrophils # (Auto) 4.0, Lymphocytes # (Auto) 0.9L, Monocytes # (Auto) 0.4, Eosinophils # (Auto) 0.1, Basophils # (Auto) 0.0, Nucleated Red Blood Cells % (auto) 0.0, Prothrombin Time 14.1H, Prothromb Time International Ratio 1.07, Activated Partial Thromboplast Time 29.9, Anion Gap 3L, Glomerular Filtration Rate > 60.0, Calcium Level 8.8, Total Creatine Kinase 45, Creatine Kinase MB < 1.0, Creatine Kinase MB Relative Index 2.22, Troponin I < 0.02 02/23/21 23:12: Coronavirus (COVID-19)(PCR) NEGATIVE, Influenza Type A (RT-PCR) NEGATIVE, Influenza Type B (RT-PCR) NEGATIVE, Respiratory Syncytial Virus (PCR) NEGATIVE 02/24/21 07:09: Nucleated Red Blood Cells % (auto) 0.0, Anion Gap 4L, Glomerular Filtration Rate > 60.0, Calcium Level 8.7, Estimated Mean Plasma Glucose 105, Hemoglobin A1c 5.3, Magnesium Level 2.1, Iron Level 24L, Total Iron Binding Capacity 352, Transferrin % Saturation 6.8L, Ferritin 11, Total Bilirubin 0.4, Aspartate Amino Transf (AST/SGOT) 19, Alanine Aminotransferase (ALT/SGPT) 28, Alkaline Phosphatase 79, Total Protein 6.8, Albumin 3.0L, Albumin/Globulin Ratio 0.8L, Vitamin B12 Level 407 02/24/21 08:47: CBC/BMP Laboratory Tests 02/23/21 18:56 02/24/21 07:09 Discharge Medications Scheduled Apixaban (Eliquis) 5 Mg Tablet, 5 MG PO BID, (Reported) Aspirin (Aspirin) 325 Mg Tablet, 325 MG PO DAILY, (Reported) Atorvastatin Calcium (Atorvastatin Calcium) 40 Mg Tablet, 40 MG PO QHS, (Reported) Cetirizine HCl (Cetirizine HCl) 10 Mg Tablet, 10 MG PO DAILY, (Reported) Clopidogrel Bisulfate (Plavix) 75 Mg Tablet, 75 MG PO DAILY, (Reported) Cyanocobalamin (Vitamin B-12) (Vitamin B-12) 1,000 Mcg Tablet, 1,000 MCG PO Q2D, (Reported) Digoxin (Digox) 250 Mcg Tablet, 250 MCG PO DAILY, (Reported) Doxycycline Hyclate (Doxycycline Hyclate) 100 Mg Tablet, 100 MG PO BID, (Reported) FILLED 02/19/21 FOR 7 DAYS Folic Acid (Folic Acid) 1 Mg Tablet, 1 MG PO DAILY, (Reported) Metoprolol Succinate (Toprol Xl) 50 Mg Tab.er.24h, 50 MG PO DAILY, (Reported) Montelukast Sodium (Montelukast Sodium) 10 Mg Tablet, 10 MG PO QHS, (Reported) Pyridoxine HCl (Vitamin B6) (Vitamin B-6) 100 Mg Tablet, 100 MG PO DAILY, (Reported) Sacubitril/Valsartan (Entresto 24 mg-26 mg Tablet) 1 Each Tablet, 1 TAB PO DAILY, (Reported) Allergies Coded Allergies: NUTS (Verified Allergy, Intermediate, Hives, 09/22/20) Olives (Verified Allergy, Intermediate, Hives, 09/22/20) Latex, Natural Rubber (Verified Allergy, Mild, Dermatitis, 09/22/20) Quinolones (Verified Allergy, Mild, HIVES, 09/22/20) clindamycin (Verified Allergy, Mild, HIVES, 09/22/20) codeine (Verified Allergy, Mild, HIVES, 09/22/20) erythromycin base (Verified Allergy, Mild, HIVES, 09/22/20) gentamicin (Verified Allergy, Mild, HIVES, 09/22/20) nitrofurantoin (Verified Allergy, Mild, HIVES, 09/22/20) sulfamethoxazole (Verified Allergy, Mild, HIVES, 09/22/20) trimethoprim (Verified Allergy, Mild, HIVES, 09/22/20) Penicillins (Verified Allergy, Unknown, RASH, 09/22/20) amoxicillin (Verified Allergy, Unknown, RASH, 09/22/20) vancomycin (Verified Adverse Reaction, Severe, JJ SYNDROME, 09/22/20) levofloxacin (Verified Adverse Reaction, Mild, itching, 09/22/20) GME ATTESTATION GME ATTESTATION My faculty preceptor for this patient encounter was physically present during the encounter and was fully available. All aspects of the patient interview, examination, medical decision making process, and medical care plan development were reviewed and approved by the faculty preceptor. The faculty preceptor is aware and concurs with the plan as stated in the body of this note and will attest to such by his/her cosignature. Jenny Fry MD February 24, 2021 11:37
== END 2021-02-24 11:53 | disposition home or self-care (01) | DRG 92 ==
LOC: M ED 18:09 → M ED INP 22:05
PROVIDERS: ADMIT Family Medicine; ATTEND Internal Medicine
DX: G83.14 Monoplegia of lower limb affecting left nondominant side (principal); I50.32 Chronic diastolic (congestive) heart failure; G83.24 Monoplegia of upper limb affecting left nondominant side; I48.91 Unspecified atrial fibrillation; Z79.01 Long term (current) use of anticoagulants; Z86.73 Personal history of transient ischemic attack (TIA), and cerebral infarction without residual deficits; G47.33 Obstructive sleep apnea (adult) (pediatric); I11.0 Hypertensive heart disease with heart failure; Z79.82 Long term (current) use of aspirin; Z79.899 Other long term (current) drug therapy; Z91.040 Latex allergy status; Z88.8 Allergy status to other drugs, medicaments and biological substances; Z88.5 Allergy status to narcotic agent; Z88.0 Allergy status to penicillin; Z91.018 Allergy to other foods; Z91.010 Allergy to peanuts; Z88.2 Allergy status to sulfonamides

== ENCOUNTER → 2021-03-18 | Outpatient (REF) | payer OTHER ==
[~2021-03-18] MED LIST changes: +DOXY100T PO
== END ==
LOC: M LAB REF 11:12
PROVIDERS: ATTEND Internal Medicine
DX: D50.9 Iron deficiency anemia, unspecified (principal)

== ENCOUNTER 2021-05-03 21:53 | Emergency (ER) | payer OTHER ==
[~2021-05-03] VITALS: Ht 157.5 cm; Wt 111.4 kg
[~2021-05-03 21:53] MED LIST changes: +ASPI-584 PO; -ASPI325T3 PO; -LISI2.5T2 PO; +LISI2.5T9 PO; -MONT10TA10 PO; +MONT10TA97 PO
[2021-05-04 02:45] VITALS: BP 132/65
== END 2021-05-04 03:07 | disposition home or self-care (01) ==
LOC: M ED 21:53
DX: S90.01XA Contusion of right ankle, initial encounter (principal); X50.9XXA Other and unspecified overexertion or strenuous movements or postures, initial encounter; Y92.410 Unspecified street and highway as the place of occurrence of the external cause; I48.91 Unspecified atrial fibrillation; Z86.73 Personal history of transient ischemic attack (TIA), and cerebral infarction without residual deficits; Z79.899 Other long term (current) drug therapy; Z79.82 Long term (current) use of aspirin; Z79.01 Long term (current) use of anticoagulants; Z88.0 Allergy status to penicillin; Z88.1 Allergy status to other antibiotic agents; Z88.5 Allergy status to narcotic agent; Z88.8 Allergy status to other drugs, medicaments and biological substances; Z91.018 Allergy to other foods; Z91.040 Latex allergy status; Z91.048 Other nonmedicinal substance allergy status

== ENCOUNTER → 2021-05-11 | Outpatient (REF) | payer OTHER ==
[~2021-05-11] MED LIST changes: -ASPI-584 PO; +ASPI325T3 PO; +LISI2.5T2 PO; -LISI2.5T9 PO; +MONT10TA10 PO; -MONT10TA97 PO
[2021-05-11 18:15] LABS: DIGOXIN LEVEL 1.3 NG/ML (0.5-2.0); PERCENT SATURATION 8.4 % (13.2-45.0)
== END ==
LOC: M LAB REF 16:16
PROVIDERS: ATTEND Internal Medicine
DX: D50.9 Iron deficiency anemia, unspecified (principal); I50.42 Chronic combined systolic (congestive) and diastolic (congestive) heart failure

== ENCOUNTER → 2021-05-27 | Outpatient (CLI) | payer OTHER ==
[~2021-05-27] MED LIST changes: +ISOVUE-370 76% 100ML VIAL As Ordered ONE
--- NOTE | 2021-05-27 17:21 | REPVR ---
PROCEDURE INFORMATION: Exam: CT Angiography Neck With Contrast Exam date and time: 05/27/2021 4:27 PM Age: 51 years old Clinical indication: Condition or disease; Infarction; Additional info: Cerebral infraction TECHNIQUE: Imaging protocol: Computed tomography angiography of the neck with contrast. 3D rendering (Not supervised by radiologist): MIP and/or 3D reconstructed images were created by the technologist. Radiation optimization: All CT scans at this facility use at least one of these dose optimization techniques: automated exposure control; mA and/or kV adjustment per patient size (includes targeted exams where dose is matched to clinical indication); or iterative reconstruction. Contrast material: ISOVUE 370; Contrast volume: 75 ml; Contrast route: INTRAVENOUS (IV); COMPARISON: CT ANGIO NECK 08/24/2020 11:45 PM FINDINGS: Limitations: The study is mildly limited due to patient motion artifact. Right common carotid artery: No stenosis. No dissection or occlusion. Right internal carotid artery: No stenosis of the extracranial segment. No dissection or occlusion. Right external carotid artery: No occlusion or stenosis of the origin. Left common carotid artery: No stenosis. No dissection or occlusion. Left internal carotid artery: No stenosis of the extracranial segment. No dissection or occlusion. Left external carotid artery: No occlusion or stenosis of the origin. Right vertebral artery: No stenosis. No dissection or occlusion. Left vertebral artery: No stenosis. No dissection or occlusion. Soft tissues: Normal. No significant soft tissue swelling. Bones/joints: No acute fracture. IMPRESSION: No acute abnormality. REFERENCES: NASCET CRITERIA. The degree of internal carotid artery stenosis is based on NASCET criteria. Normal is no stenosis. Mild is less than 50% stenosis. Moderate is 50-69% stenosis. Severe is 70% to 99% stenosis. Total occlusion is no detectable patent lumen. Electronically signed by: Alexei Stone On 05/27/2021 17:21:10 PM
== END ==
LOC: M RAD 15:58
PROVIDERS: ATTEND Physician Assistant Medical
DX: I63.032 Cerebral infarction due to thrombosis of left carotid artery (principal); I63.031 Cerebral infarction due to thrombosis of right carotid artery
CPT/HCPCS: 70498; Q9967

== ENCOUNTER → 2021-12-22 | Outpatient (CLI) | payer OTHER, SELFPAY ==
[~2021-12-22] MED LIST changes: +ASPI-584 PO; -ASPI325T3 PO; -ISOVUE-370 76% 100ML VIAL As Ordered ONE; -LISI2.5T2 PO; +LISI2.5T9 PO; -MONT10TA10 PO; +MONT10TA97 PO
[2021-12-22 07:47] LABS: ALBUMIN 3.7 GM/DL (3.2-5.2); ALT/SGPT 42 U/L (12-78); BILIRUBIN,TOTAL 0.9 MG/DL (0.2-1.0); BLOOD UREA NITROGEN 12 MG/DL (7-18); CALCIUM LEVEL 9.1 MG/DL (8.5-10.1); CARBON DIOXIDE LEVEL 32 MEQ/L (21-32); CHLORIDE LEVEL 99 MEQ/L (98-107); CHOLESTEROL LEVEL 126 MG/DL (<200); CHOLESTEROL RISK RATIO 4.064 (<5); CREATININE FOR GFR 0.71 MG/DL (0.55-1.30); GLOMERULAR FILTRATION RATE > 60.0 (>51); GLUCOSE, FASTING 116 MG/DL (70-100); HDL CHOLESTEROL 31 MG/DL (>40); LDL CHOLESTEROL 62 MG/DL (<100); MAGNESIUM LEVEL 1.9 MG/DL (1.8-2.4); NON-HDL-C 95 MG/DL; POTASSIUM SERUM 3.8 MEQ/L (3.5-5.1); SODIUM LEVEL 137 MEQ/L (136-145); TOTAL PROTEIN 7.5 GM/DL (6.4-8.2); TRIGLYCERIDES LEVEL 165 MG/DL (<150)
== END ==
LOC: M LAB 06:41
PROVIDERS: ATTEND Physician Assistant
DX: I50.42 Chronic combined systolic (congestive) and diastolic (congestive) heart failure (principal); E78.00 Pure hypercholesterolemia, unspecified; I48.0 Paroxysmal atrial fibrillation

== ENCOUNTER 2022-02-20 18:29 | Emergency (ER) | payer OTHER ==
[~2022-02-20] VITALS: Ht 154.9 cm; Wt 109.1 kg
[~2022-02-20 18:29] MED LIST changes: -VITA200015 PO; +VITA200035 PO
[2022-02-20 19:08] LABS: BASO % 0.5 % (0.0-1.0); EOS # 0.1 10^3/uL (0.0-0.5); HEMATOCRIT 35.5 % (36.0-47.0); HEMOGLOBIN 11.3 g/dl (12.0-15.5); LYMPH # 0.8 10^3/uL (1.5-5.0); MEAN CORPUSCULAR HEMOGLOBIN 28.8 pg (27.0-33.0); MEAN CORPUSCULAR HGB CONC 31.8 g/dl (32.0-36.5); MEAN CORPUSCULAR VOLUME 90.6 fl (80.0-96.0); MONO # 0.5 10^3/uL (0.0-0.8); NEUTROPHILS # 4.9 10^3/uL (1.5-8.5); PLATELET COUNT, AUTOMATED 203 10^3/uL (150-450); RED BLOOD COUNT 3.92 10^6/uL (4.00-5.40); WHITE BLOOD COUNT 6.4 10^3/uL (4.0-10.0)
[2022-02-20 19:27] LABS: INR 1.07; PROTHROMBIN TIME 14.3 SECONDS (12.7-14.5)
[2022-02-20 19:33] LABS: CK-MB VALUE MASS < 1.0 NG/ML (<3.6); CPK CREATINE PHOSPHOKINASE 54 U/L (26-192); MB/CK RELATIVE INDEX 1.85 (< OR =4)
[2022-02-20 19:40] LABS: ALBUMIN 3.3 GM/DL (3.2-5.2); ALT/SGPT 28 U/L (12-78); BILIRUBIN,DIRECT 0.2 MG/DL (0.0-0.2); BILIRUBIN,TOTAL 0.5 MG/DL (0.2-1.0); BLOOD UREA NITROGEN 15 MG/DL (7-18); CALCIUM LEVEL 8.7 MG/DL (8.5-10.1); CARBON DIOXIDE LEVEL 29 MEQ/L (21-32); CHLORIDE LEVEL 102 MEQ/L (98-107); CREATININE FOR GFR 0.75 MG/DL (0.55-1.30); GLOMERULAR FILTRATION RATE > 60.0 (>51); GLUCOSE, FASTING 160 MG/DL (70-100); LIPASE 87 U/L (73-393); NT-PRO BNP 113 PG/ML (<125); POTASSIUM SERUM 3.3 MEQ/L (3.5-5.1); SODIUM LEVEL 138 MEQ/L (136-145); THYROID STIMULATING HORMONE 0.798 uIU/ML (0.358-3.740); TOTAL PROTEIN 7.2 GM/DL (6.4-8.2)
[2022-02-20] MEDS: METOPROLOL 5 MG/5 ML VIAL IV SCH ×3 (19:43→22:00)
[2022-02-20] MEDS ORDERED: POTASSIUM CHLORIDE 10MEQ SR TABLET PO ONE (20:05)
[2022-02-20 20:07] LABS: MAGNESIUM LEVEL 1.6 MG/DL (1.8-2.4)
[2022-02-20] MEDS ORDERED: MAG SULF 1GM/100ML (MAG RUN) 1 GM in IV 1 EA IV ONE ×2 (20:20→21:20)
[2022-02-20 21:00] VITALS: BP 127/72
[2022-02-20] MEDS ORDERED: METOPROLOL TART 12.5 MG PER 1/2 TAB PO ONE (21:00)
[2022-02-20 22:06] LABS: DIGOXIN LEVEL 0.8 NG/ML (0.5-2.0)
[2022-02-20] MEDS ORDERED: METO1TAB87 PO (22:24)
[2022-02-20 23:30] VITALS: BP 130/70
== END 2022-02-21 03:30 | disposition home or self-care (01) ==
LOC: EDBD 18:29 → M ED 18:29
DX: I48.91 Unspecified atrial fibrillation (principal); E87.6 Hypokalemia; E83.42 Hypomagnesemia; I10 Essential (primary) hypertension; E78.5 Hyperlipidemia, unspecified; I69.354 Hemiplegia and hemiparesis following cerebral infarction affecting left non-dominant side; Z86.711 Personal history of pulmonary embolism; Z86.718 Personal history of other venous thrombosis and embolism; Z98.84 Bariatric surgery status; Z88.0 Allergy status to penicillin; Z88.1 Allergy status to other antibiotic agents; Z88.2 Allergy status to sulfonamides; Z88.5 Allergy status to narcotic agent; Z88.8 Allergy status to other drugs, medicaments and biological substances; Z91.018 Allergy to other foods; Z91.040 Latex allergy status; Z91.048 Other nonmedicinal substance allergy status; Z79.899 Other long term (current) drug therapy; Z79.82 Long term (current) use of aspirin; Z79.01 Long term (current) use of anticoagulants
CPT/HCPCS: 71045; 80048; 80076; 80162; 82550; 82553; 83690; 83735; 83880; 84443; 84484; 85025; 85610; 93005; 93041; 94760; 96365; 99285; J3475

== ENCOUNTER → 2022-06-13 | Outpatient (REF) | payer OTHER ==
[~2022-06-13] MED LIST changes: +METO1TAB87 PO
== END ==
LOC: M LAB REF 12:02
PROVIDERS: ATTEND Internal Medicine
DX: I48.0 Paroxysmal atrial fibrillation (principal)

== ENCOUNTER → 2022-09-02 | Outpatient (CLI) | payer OTHER ==
[~2022-09-02] MED LIST changes: -ASPI-584 PO; +ASPI325T62 PO; +CLOP75TA99 PO; -PLAV1TAB2 PO
[2022-09-02 15:03] LABS: BASO % 0.3 % (0.0-1.0); EOS # 0.1 10^3/uL (0.0-0.5); EOS % 1.6 % (0.0-3.0); HEMATOCRIT 35.9 % (36.0-47.0); HEMOGLOBIN 11.2 g/dl (12.0-15.5); LYMPH # 1.3 10^3/uL (1.5-5.0); LYMPH % 19.2 % (24.0-44.0); MEAN CORPUSCULAR HEMOGLOBIN 29.1 pg (27.0-33.0); MEAN CORPUSCULAR HGB CONC 31.2 g/dl (32.0-36.5); MEAN CORPUSCULAR VOLUME 93.2 fl (80.0-96.0); MONO # 0.4 10^3/uL (0.0-0.8); MONO % 5.6 % (2.0-8.0); NEUTROPHILS # 4.9 10^3/uL (1.5-8.5); NEUTROPHILS % 72.9 % (36.0-66.0); PLATELET COUNT, AUTOMATED 229 10^3/uL (150-450); RED BLOOD COUNT 3.85 10^6/uL (4.00-5.40); WHITE BLOOD COUNT 6.8 10^3/uL (4.0-10.0)
[2022-09-02 15:31] LABS: HCG, SERUM QUALITATIVE NEGATIVE (NEGATIVE)
== END ==
LOC: M RAD 11:13
PROVIDERS: ATTEND Internal Medicine
DX: N92.0 Excessive and frequent menstruation with regular cycle (principal); R10.2 Pelvic and perineal pain

== ENCOUNTER → 2022-09-06 | Outpatient (REF) | payer OTHER ==
[2022-09-06 20:39] LABS: FERRITIN 18.3 NG/ML (7.3-270.7)
== END ==
LOC: M LAB REF 16:47
PROVIDERS: ATTEND Internal Medicine
DX: D50.9 Iron deficiency anemia, unspecified (principal)

== ENCOUNTER → 2022-09-13 | Outpatient (CLI) | payer OTHER ==
[~2022-09-13] MED LIST changes: +GASTROGRAFIN SOLUTION 30ML As Ordered ONE; +ISOVUE-370 76% 100ML VIAL As Ordered ONE
== END ==
LOC: M RAD 10:38
PROVIDERS: ATTEND Internal Medicine
DX: R10.2 Pelvic and perineal pain (principal)

== ENCOUNTER → 2022-10-13 | Outpatient (REF) | payer OTHER ==
[~2022-10-13] MED LIST changes: -GASTROGRAFIN SOLUTION 30ML As Ordered ONE; -ISOVUE-370 76% 100ML VIAL As Ordered ONE
== END ==
LOC: M SFHCWAGY 13:08
PROVIDERS: ATTEND Obstetrics & Gynecology
DX: N93.9 Abnormal uterine and vaginal bleeding, unspecified (principal)
CPT/HCPCS: 87624; 88305; G0123

== ENCOUNTER → 2022-11-07 | Outpatient (CLI) | payer OTHER, SELFPAY | LOC: M WHC 08:29 | PROVIDERS: ATTEND Obstetrics & Gynecology | DX: Z12.31 Encounter for screening mammogram for malignant neoplasm of breast (principal); Z80.3 Family history of malignant neoplasm of breast ==

== ENCOUNTER → 2022-11-16 | Outpatient (REF) | payer OTHER ==
[2022-11-16 17:22] LABS: DIGOXIN LEVEL 0.2 NG/ML (0.8-2.0); PERCENT SATURATION 5.6 % (13.2-45.0)
[2022-11-16 17:24] LABS: FERRITIN 19.6 NG/ML (7.3-270.7)
== END ==
LOC: M LAB REF 16:16
PROVIDERS: ATTEND Internal Medicine
DX: D50.9 Iron deficiency anemia, unspecified (principal); I48.0 Paroxysmal atrial fibrillation

== ENCOUNTER → 2022-12-20 | Outpatient (REF) | payer OTHER ==
[~2022-12-20] MED LIST changes: +ASPI1TAB8 PO; +ATOR80TA59 PO; +CETI-24 PO; +FERR324T21 PO; +LASI20TA3 PO; +METO1TAB33 PO
[2022-12-20 12:37] LABS: INR 0.95; PROTHROMBIN TIME 12.9 SECONDS (12.5-14.5)
[2022-12-20 13:15] LABS: PERCENT SATURATION 13.2 % (13.2-45.0)
[2022-12-20 13:16] LABS: FERRITIN 8.2 NG/ML (7.3-270.7)
== END ==
LOC: M LAB REF 12:11
PROVIDERS: ATTEND Internal Medicine
DX: Z01.818 Encounter for other preprocedural examination (principal); D50.9 Iron deficiency anemia, unspecified
CPT/HCPCS: 82728; 83550; 85610; G0463

== ENCOUNTER → 2022-12-26 | Outpatient (CLI) | payer OTHER | LOC: M LABSMTC 12:13 | PROVIDERS: ATTEND Anesthesiology | DX: Z01.812 Encounter for preprocedural laboratory examination (principal) ==

== ENCOUNTER 2022-12-30 08:16 | Day surgery (SDC) | payer OTHER ==
[~2022-12-30] VITALS: Ht 157.5 cm; Wt 105.6 kg
[~2022-12-30 08:16] MED LIST changes: +ACETAMINOPHEN 1000MG 100ML IV BAG As Ordered ONE; +KETOROLAC 60MG 2ML VIAL As Ordered ONE; +LIDOCAINE 2% 100MG/5ML SDV (FOR ANES.) As Ordered ONE; +MIDAZOLAM INJ 2MG/2ML VIAL As Ordered ONE; +ONDANSETRON 4MG 2ML VIAL As Ordered ONE; +ROCURONIUM BROMIDE 50MG/5ML VIAL As Ordered ONE; +SUGAMMADEX SODIUM 500 MG/5 ML VIAL (BRIDION) As Ordered ONE; +fentaNYL 100 MCG/2 ML INJECTION As Ordered ONE; +propofoL 200 MG/20 ML VIAL As Ordered ONE
[2022-12-30 08:41] LABS: HEMATOCRIT 32.9 % (36.0-47.0); HEMOGLOBIN 9.8 g/dl (12.0-15.5); MEAN CORPUSCULAR HEMOGLOBIN 27.1 pg (27.0-33.0); MEAN CORPUSCULAR HGB CONC 29.8 g/dl (32.0-36.5); MEAN CORPUSCULAR VOLUME 90.9 fl (80.0-96.0); PLATELET COUNT, AUTOMATED 202 10^3/uL (150-450); RED BLOOD COUNT 3.62 10^6/uL (4.00-5.40)
[2022-12-30] MEDS ORDERED: LR 1,000 ML IV SCH (08:50)
[2022-12-30] MEDS ORDERED: TORS20TA2 PO (08:56)
[2022-12-30] MEDS ORDERED: BUPIVACAINE HCL 0.25% 30ML VIAL As Ordered ONE (09:33)
[2022-12-30] MEDS ORDERED: METHYLENE BLUE 0.5% (5MG/ML) 10 ML AMP (PROVAYBLUE) As Ordered ONE (09:33)
[2022-12-30] MEDS ORDERED: METOPROLOL SUCC *XL* 25MG TAB (TopROL *XL*) PO ONE (10:00)
[2022-12-30] MEDS ORDERED: SCOPOLAMINE 1MG TRANSDERMAL PATCH TOP ONE (10:00)
[2022-12-30] MEDS ORDERED: ROCURONIUM BROMIDE 50MG/5ML VIAL As Ordered ONE ×2 (10:29→11:58)
[2022-12-30] MEDS ORDERED: ceFAZolin 2 GM/D5W 50 ML IV BAG As Ordered ONE (10:36)
[2022-12-30] MEDS ORDERED: HYDROmorphone HCL 2MG/ML 1ML VIAL As Ordered ONE (12:57)
[2022-12-30] MEDS ORDERED: oxyCODONE 5MG TAB PO PRN (13:55)
[2022-12-30] MEDS ORDERED: MORPHINE 2 MG/ML 1ML VIAL IV PRN (13:55)
[2022-12-30] MEDS ORDERED: fentaNYL 100 MCG/2 ML INJECTION IV PRN (13:55)
[2022-12-30] MEDS ORDERED: ONDANSETRON 4MG 2ML VIAL IV PRN (13:55)
[2022-12-30 16:00] VITALS: BP 135/66
== END 2022-12-30 16:03 | disposition home or self-care (01) ==
LOC: M SDC 08:16
PROVIDERS: ATTEND Obstetrics & Gynecology
DX: N80.03 Adenomyosis of the uterus (principal); D25.1 Intramural leiomyoma of uterus; I10 Essential (primary) hypertension; I48.91 Unspecified atrial fibrillation; D64.9 Anemia, unspecified; F41.9 Anxiety disorder, unspecified; Z79.82 Long term (current) use of aspirin; Z79.02 Long term (current) use of antithrombotics/antiplatelets; Z91.040 Latex allergy status; Z91.010 Allergy to peanuts; Z88.2 Allergy status to sulfonamides; Z88.1 Allergy status to other antibiotic agents; Z88.0 Allergy status to penicillin; Z86.73 Personal history of transient ischemic attack (TIA), and cerebral infarction without residual deficits; Z88.5 Allergy status to narcotic agent; Z91.018 Allergy to other foods
CPT/HCPCS: 36415; 58571; 85027; 86850; 86900; 86901; 88307; J0690; J1100; J1170; J1885; J2250; J2405; J3010; S0020; S2900

== ENCOUNTER 2023-04-05 11:36 | Day surgery (SDC) | payer OTHER ==
[~2023-04-05] VITALS: Ht 157.5 cm; Wt 98.4 kg
[~2023-04-05 11:36] MED LIST changes: -ACETAMINOPHEN 1000MG 100ML IV BAG As Ordered ONE; +DIGO0.253 PO; +IBUP80TA PO; -KETOROLAC 60MG 2ML VIAL As Ordered ONE; -LIDOCAINE 2% 100MG/5ML SDV (FOR ANES.) As Ordered ONE; -MIDAZOLAM INJ 2MG/2ML VIAL As Ordered ONE; -ONDANSETRON 4MG 2ML VIAL As Ordered ONE; +OXYC1TAB23; +PHEN-501; -ROCURONIUM BROMIDE 50MG/5ML VIAL As Ordered ONE; -SUGAMMADEX SODIUM 500 MG/5 ML VIAL (BRIDION) As Ordered ONE; +TORS20TA2 PO; -fentaNYL 100 MCG/2 ML INJECTION As Ordered ONE; -propofoL 200 MG/20 ML VIAL As Ordered ONE
[2023-04-05] MEDS: NS 1,000 ML IV ONE (13:07)
[2023-04-05] MEDS ORDERED: propofoL 200 MG/20 ML VIAL As Ordered ONE ×2 (13:20→14:00)
[2023-04-05] MEDS ORDERED: LIDOCAINE 2% 100MG/5ML SDV (FOR ANES.) As Ordered ONE (13:20)
[2023-04-05] MEDS ORDERED: fentaNYL 100 MCG/2 ML INJECTION As Ordered ONE (13:20)
[2023-04-05 14:40] VITALS: BP 141/80; TEMP 96.6; O2SAT 100
== END 2023-04-05 14:44 | disposition home or self-care (01) ==
LOC: M OPP 11:36
PROVIDERS: ATTEND Surgery
DX: D12.5 Benign neoplasm of sigmoid colon (principal); D50.9 Iron deficiency anemia, unspecified; K63.89 Other specified diseases of intestine; K22.89 Other specified disease of esophagus; Z98.84 Bariatric surgery status
CPT/HCPCS: 43235; 45380; 45385; 88305; J3010

== ENCOUNTER → 2023-04-14 | Outpatient (REF) | payer OTHER ==
[2023-04-14 17:14] LABS: PERCENT SATURATION 12.4 % (13.2-45.0)
[2023-04-14 17:16] LABS: FERRITIN 25.5 NG/ML (7.3-270.7)
== END ==
LOC: M LAB REF 16:18
PROVIDERS: ATTEND Internal Medicine
DX: D50.9 Iron deficiency anemia, unspecified (principal)

== ENCOUNTER → 2023-09-18 | Outpatient (CLI) | payer OTHER | LOC: M RAD 12:33 | PROVIDERS: ATTEND Student in an Organized Health Care Education/Training Program | DX: R59.0 Localized enlarged lymph nodes (principal) ==

== ENCOUNTER → 2023-10-13 | Outpatient (REF) | payer OTHER ==
[2023-10-13 18:48] LABS: PERCENT SATURATION 12.8 % (13.2-45.0)
[2023-10-13 18:50] LABS: FERRITIN 22.4 NG/ML (7.3-270.7)
== END ==
LOC: M LAB REF 16:44
PROVIDERS: ATTEND Internal Medicine
DX: D50.9 Iron deficiency anemia, unspecified (principal)

== ENCOUNTER → 2023-11-14 | Outpatient (CLI) | payer OTHER | LOC: M WHC 09:03 | PROVIDERS: ATTEND Internal Medicine | DX: Z12.31 Encounter for screening mammogram for malignant neoplasm of breast (principal); R92.323 Mammographic fibroglandular density, bilateral breasts ==

== ENCOUNTER → 2024-02-29 | Outpatient (CLI) | payer OTHER ==
[~2024-02-29] MED LIST changes: -ASPI325T62 PO; +BAYE325T PO; +GASTROGRAFIN SOLUTION 30ML As Ordered ONE; +ISOVUE-370 76% 100ML VIAL As Ordered ONE
== END ==
LOC: M RAD 15:09
PROVIDERS: ATTEND Internal Medicine
DX: R19.06 Epigastric swelling, mass or lump (principal); K76.0 Fatty (change of) liver, not elsewhere classified; K57.30 Diverticulosis of large intestine without perforation or abscess without bleeding
CPT/HCPCS: 74177; Q9963; Q9967

== ENCOUNTER 2024-05-09 07:46 | Emergency (ER) | payer OTHER ==
[~2024-05-09] VITALS: Ht 157.5 cm; Wt 109.1 kg
[~2024-05-09 07:46] MED LIST changes: +FLUO-365 PO; -FLUO20CA22 PO; -GASTROGRAFIN SOLUTION 30ML As Ordered ONE; -ISOVUE-370 76% 100ML VIAL As Ordered ONE
[2024-05-09 11:56] VITALS: BP 133/88; TEMP 96.3; O2SAT 98
== END 2024-05-09 12:07 | disposition home or self-care (01) ==
LOC: M ED 07:46
DX: S93.601A Unspecified sprain of right foot, initial encounter (principal); S93.401A Sprain of unspecified ligament of right ankle, initial encounter; W01.0XXA Fall on same level from slipping, tripping and stumbling without subsequent striking against object, initial encounter; I10 Essential (primary) hypertension; H81.4 Vertigo of central origin; R51.9 Headache, unspecified; Z98.84 Bariatric surgery status; Z87.891 Personal history of nicotine dependence; Z79.82 Long term (current) use of aspirin; Z79.02 Long term (current) use of antithrombotics/antiplatelets; Z79.899 Other long term (current) drug therapy; Y92.9 Unspecified place or not applicable; Y93.89 Activity, other specified; Y99.9 Unspecified external cause status

== ENCOUNTER → 2024-05-22 | Outpatient (REF) | payer OTHER ==
[2024-05-22 19:23] LABS: URIC ACID 10.7 MG/DL (3.1-7.8)
[2024-05-22 19:24] LABS: C REACTIVE PROTEIN QUANTITATIV 4.2 MG/DL (<1.0)
== END ==
LOC: M LAB REF 17:47
PROVIDERS: ATTEND Nurse Practitioner Family
DX: M79.675 Pain in left toe(s) (principal)

== ENCOUNTER → 2024-12-17 | Outpatient (CLI) | payer OTHER ==
[~2024-12-17] MED LIST changes: +ISOVUE-370 76% 100ML VIAL As Ordered ONE
== END ==
LOC: M RAD 14:14
PROVIDERS: ATTEND Surgery
DX: K57.30 Diverticulosis of large intestine without perforation or abscess without bleeding (principal); K76.0 Fatty (change of) liver, not elsewhere classified; R16.2 Hepatomegaly with splenomegaly, not elsewhere classified
CPT/HCPCS: 74177; Q9967

== ENCOUNTER → 2025-01-30 | Outpatient (REF) | payer OTHER ==
[~2025-01-30] MED LIST changes: -ISOVUE-370 76% 100ML VIAL As Ordered ONE
== END ==
LOC: M LAB REF 12:03
PROVIDERS: ATTEND Internal Medicine
DX: I50.42 Chronic combined systolic (congestive) and diastolic (congestive) heart failure (principal)

== ENCOUNTER → 2025-04-24 | Outpatient (REF) | payer OTHER ==
[2025-04-24 14:46] LABS: IRON (FE) 57.0 UG/DL (50-170); PERCENT SATURATION 18.0 % (13.2-45.0)
[2025-04-26 13:25] LABS: INSULIN LEVEL 16.0 uIU/mL (<=18.4)
[2025-04-27 04:09] LABS: C-PEPTIDE 11.33 ng/mL (0.80-3.85)
== END ==
LOC: M LAB REF 12:35
PROVIDERS: ATTEND Internal Medicine
DX: D64.9 Anemia, unspecified (principal); R73.01 Impaired fasting glucose

== ENCOUNTER → 2025-06-12 | Outpatient (CLI) | payer OTHER ==
[~2025-06-12] MED LIST changes: -VITA100T14 PO; +VITA100T69 PO
== END ==
LOC: M CARPUL 08:45
PROVIDERS: ATTEND Physician Assistant
DX: I50.42 Chronic combined systolic (congestive) and diastolic (congestive) heart failure (principal); I48.0 Paroxysmal atrial fibrillation; I49.9 Cardiac arrhythmia, unspecified

== ENCOUNTER 2025-08-07 16:51 | Observation (INO) | payer OTHER ==
[~2025-08-07] VITALS: Ht 157.5 cm; Wt 95.6 kg
[2025-08-07] MEDS ORDERED: ISOVUE-370 76% 100 ML VIAL As Ordered ONE (17:17)
[2025-08-07 17:31] LABS: BASO # 0.0 10^3/uL (0.0-0.2); BASO % 0.4 % (0.0-1.0); EOS # 0.1 10^3/uL (0.0-0.5); EOS % 1.4 % (0.0-3.0); LYMPH # 0.6 10^3/uL (1.5-5.0); LYMPH % 10.3 % (24.0-44.0); MONO # 0.4 10^3/uL (0.0-0.8); MONO % 7.1 % (2.0-8.0); NEUTROPHILS # 4.6 10^3/uL (1.5-8.5); NEUTROPHILS % 80.6 % (36.0-66.0); PLATELET COUNT, AUTOMATED 151 10^3/uL (150-450)
[2025-08-07 17:49] LABS: INR 1.05
[2025-08-07 20:38] LABS: CALCIUM LEVEL 8.9 MG/DL (8.5-10.1); CARBON DIOXIDE LEVEL 26.0 MMOL/L (20-31); CHLORIDE LEVEL 105.0 MMOL/L (98-107); CREATININE FOR GFR 1.03 MG/DL (0.55-1.30); GLOMERULAR FILTRATION RATE 63.4 (>51); MAGNESIUM LEVEL 2.0 MG/DL (1.8-2.4); PHOSPHORUS LEVEL 4.1 MG/DL (2.5-4.9); POTASSIUM SERUM 4.4 MMOL/L (3.5-5.1); SODIUM LEVEL 143.0 MMOL/L (136-145)
[2025-08-07] MEDS ORDERED: IBUP200T46 PO (20:43)
[2025-08-07] MEDS ORDERED: BETA0.0543 TOP (20:43)
[2025-08-07] MEDS ORDERED: ALBU1.25 INH (20:43)
[2025-08-07] MEDS ORDERED: SPIR50TA4 PO (20:43)
[2025-08-07] MEDS ORDERED: JARD1TAB PO (20:43)
[2025-08-07] MEDS ORDERED: METO1TAB7 PO (20:43)
[2025-08-07] MEDS ORDERED: HOME MED LIST COMPLETE! XX SCH (20:45)
[2025-08-07] MEDS ORDERED: MOM 30 ML SUSPENSION UDC PO PRN (21:10)
[2025-08-07] MEDS ORDERED: MAALOX 30 ML SUSP *UDC PO PRN (21:10)
[2025-08-07] MEDS ORDERED: ACETAMINOPHEN 325 MG TAB PO PRN (21:10)
[2025-08-07 23:13] VITALS: BP 102/59; TEMP 97.8; O2SAT 100
[2025-08-07] MEDS: MONTELUKAST 10 MG TAB PO SCH (23:32)
[2025-08-07] MEDS: NS 500 ML IV ONE (23:33)
[2025-08-08] VITALS (12 sets, daily range): BP systolic 86–116; BP diastolic 52–68; TEMP 97–98.3; O2SAT 97–100
[2025-08-08] MEDS: ATORVASTATIN 20 MG TAB PO ONE (01:44)
[2025-08-08 05:52] LABS: PLATELET COUNT, AUTOMATED 135 10^3/uL (150-450)
[2025-08-08 06:20] LABS: ALT/SGPT 37.0 U/L (7.0-40); AST/SGOT 35.0 U/L (<34); CALCIUM LEVEL 8.8 MG/DL (8.5-10.1); CARBON DIOXIDE LEVEL 27.0 MMOL/L (20-31); CHLORIDE LEVEL 106.0 MMOL/L (98-107); CREATININE FOR GFR 0.81 MG/DL (0.55-1.30); GLOMERULAR FILTRATION RATE 84.6 (>51); MAGNESIUM LEVEL 2.1 MG/DL (1.8-2.4); POTASSIUM SERUM 3.6 MMOL/L (3.5-5.1); SODIUM LEVEL 144.0 MMOL/L (136-145)
[2025-08-08] MEDS: DOCUSATE SODIUM 100 MG CAPSULE PO SCH (09:00)
[2025-08-08] MEDS ORDERED: ATORVASTATIN 20 MG TAB PO SCH ×2 (09:00→21:00)
[2025-08-08] MEDS: ENTRESTO 24-26 MG TABLET (SACUBITRIL/VALSARTAN) PO SCH (10:25)
[2025-08-08] MEDS: DIGOXIN 0.25 MG TAB PO SCH (10:25)
[2025-08-08] MEDS: TORSEMIDE 20 MG TAB PO SCH (10:25)
[2025-08-08] MEDS: ASPIRIN 325 MG TAB PO SCH (10:25)
[2025-08-08] MEDS: SPIRONOLACTONE 50 MG TAB PO SCH (10:26)
[2025-08-08] MEDS: HEPARIN SOD 5000 UNITS/ML 1 ML VIAL/SYRINGE SQ SCH (10:26)
[2025-08-08] MEDS: METOPROLOL SUCC. 50 MG *XL* TAB PO SCH (10:26)
[2025-08-08] MEDS: CETIRIZINE 10 MG TAB PO SCH (10:26)
== END 2025-08-08 17:18 | disposition home or self-care (01) ==
LOC: M ED 16:51 → EDBD 16:51 → M ED INP 16:52 → UNDOADMOB 16:52 → M ED INP 23:08 → M PCU 08-08 00:49
PROVIDERS: ADMIT Student in an Organized Health Care Education/Training Program; ATTEND Student in an Organized Health Care Education/Training Program
DX: R20.0 Anesthesia of skin (principal); R53.1 Weakness; Z86.73 Personal history of transient ischemic attack (TIA), and cerebral infarction without residual deficits; D64.9 Anemia, unspecified; Z79.82 Long term (current) use of aspirin; Z79.899 Other long term (current) drug therapy
CPT/HCPCS: 36415; 70450; 70496; 70498; 70551; 71045; 80047; 80048; 80053; 83735; 84100; 85025; 85027; 85610; 85730; 86850; 86900; 86901; 93005; 93041; 94760; 95819; 96374; 97116; 97161; 99285; Q9967

== ENCOUNTER → 2025-10-15 | Outpatient (REF) | payer OTHER ==
[~2025-10-15] MED LIST changes: +ALBU1.25 INH; +BETA0.0543 TOP; +IBUP200T46 PO; +JARD1TAB PO; +METO1TAB7 PO; +SPIR50TA4 PO
[2025-10-15 12:53] LABS: IRON (FE) 70.0 UG/DL (50-170); PERCENT SATURATION 20.8 % (13.2-45.0)
[2025-10-15 12:55] LABS: VITAMIN B12 LEVEL 264.0 PG/ML (211-911)
[2025-10-15 13:10] LABS: DIGOXIN LEVEL 3.0 NG/ML (0.8-2.0)
== END ==
LOC: M LAB REF 12:00
PROVIDERS: ATTEND Internal Medicine
DX: I48.0 Paroxysmal atrial fibrillation (principal); D50.9 Iron deficiency anemia, unspecified

== ENCOUNTER → 2025-10-20 | Outpatient (REF) | payer OTHER ==
[2025-10-22 11:31] LABS: PROTEIN CREATININE RATIO 205 mg/g creat (24-184); T PROTEIN CREATININE RATIO 0.205 (0.024-0.184); UPEP CREATININE 39 mg/dL (20-275); UPEP TOTAL PROTEIN 8 mg/dL (5-24)
[2025-10-22 22:38] LABS: PROTEIN, TOTAL SO 7.6 g/dL (6.1-8.1)
[2025-10-24 06:59] LABS: UPEP ALBUMIN 31 %; URINE ALPHA 1 GLOBULIN 10 %; URINE ALPHA 2 GLOBULIN 18 %; URINE BETA GLOBULIN 16 %; URINE GAMMA GLOBULIN 24 %
== END ==
LOC: M LAB REF 17:05
PROVIDERS: ATTEND Internal Medicine
DX: R79.9 Abnormal finding of blood chemistry, unspecified (principal); E87.6 Hypokalemia